=== PATIENT | female | born 1950 | race Caucasian/White ===

== ENCOUNTER 2016-07-17 13:00 | Day surgery (SDC) | payer MEDICARE, OTHER ==
[~2016-07-17 13:00] MED LIST: LACTATED RINGERS 1,000 ML IV SCH; LIDOCAINE 1% 20 ML VIAL (10MG/ML) FOR IV START INTRADERMA PRN
[2016-07-17 13:44] VITALS: RESP 16; TEMP 98.2
[2016-07-17] MEDS ORDERED: MIDAZOLAM 2 MG/2 ML VIAL IV ONE (14:04)
[2016-07-17] MEDS ORDERED: LABETALOL 5 MG/ML VIAL MDV ONE (15:43)
[2016-07-17] MEDS ORDERED: LIDOCAINE 1% INJ 10MG/ML (20 ML MDV) ONE (15:43)
[2016-07-17] MEDS ORDERED: PROPOFOL 10 MG/ML 20 ML VIAL IV ONE (15:43)
--- NOTE | 2016-07-17 16:09 | P.PCN ---
Date of Procedure: 07/17/16 Procedure(s) Performed: Procedure: Total colonoscopy. Preoperative diagnosis: Screening for neoplasia. Postoperative diagnosis: Sigmoid diverticulosis with no evidence of acute diverticulitis, strictures, polyps or cancer. Preparation: HalfLytely prep. Sedation: Was provided by anesthesia. Brief clinical history: The patient is a 65-year-old female who is scheduled for this evaluation for screening for neoplasia. Her last colonoscopy was more than 10 years ago. She has no abdominal complaints, bleeding or anemia. Procedure: With the patient on her left lateral decubitus position and after informed consent and adequate sedation, the perianal area was inspected and it did not show any fissures or fistulas. There were no masses felt on digital rectal examination. The Olympus CFQ 160L video colonoscope was then inserted in the rectum in the usual fashion and advanced to the cecum. There were several diverticular orifices seen scattered in the sigmoid but there was no evidence of acute diverticulitis or strictures. No polyps or tumors were seen or any other pathology. The patient tolerated the procedure well. Plan: The patient was reassured. Discussed dietary measures. She will follow- up with you as planned and I recommended repeat exam in 10 years.
[2016-07-17 16:23] VITALS: BP 164/84; PULSE 67
== END 2016-07-17 16:48 | disposition home or self-care (01) ==
LOC: ORWHC2ENDO 13:00
DX: Z12.11 Encounter for screening for malignant neoplasm of colon (principal); K57.30 Diverticulosis of large intestine without perforation or abscess without bleeding; I10 Essential (primary) hypertension; Z79.82 Long term (current) use of aspirin; Z79.899 Other long term (current) drug therapy; Z88.2 Allergy status to sulfonamides
CPT/HCPCS: J2250; J2001; J2704; G0121; 45378

== ENCOUNTER → 2016-07-25 | Outpatient (CLI) | payer MEDICARE, OTHER ==
--- NOTE | 2016-07-28 13:19 | MM ---
Reason for exam: screening (asymptomatic). Last mammogram was performed 1 year and 10 months ago. History: Patient is postmenopausal. Benign stereotactic core biopsy of the right breast, September 09, 1997. Benign core biopsy of the right breast. Physical Findings: A clinical breast exam by your physician is recommended on an annual basis and results should be correlated with mammographic findings. MG Screening Mammo w CAD Bilateral CC and MLO view(s) were taken. Prior study comparison: September 16, 2014, bilateral MG screening mammo w CAD. December 23, 2012, bilateral digital screening mammo w/CAD. August 01, 2010, bilateral digital screening mammo w/CAD. There are scattered fibroglandular densities. Previous mammotome biopsy within the right breast. No significant changes when compared with prior studies. ASSESSMENT: Negative, BI-RAD 1 RECOMMENDATION: Routine screening mammogram of both breasts in 1 year.
== END | disposition home or self-care (01) ==
LOC: RADMAMWWP 13:34
PROVIDERS: ATTEND Internal Medicine
DX: Z12.31 Encounter for screening mammogram for malignant neoplasm of breast (principal)

== ENCOUNTER → 2017-09-20 | Outpatient (CLI) | payer MEDICARE, OTHER ==
--- NOTE | 2017-09-24 10:05 | MM ---
Reason for exam: screening (asymptomatic). Last mammogram was performed 1 year and 2 months ago. History: Patient is postmenopausal. Benign stereotactic core biopsy of the right breast, September 09, 1997. Benign core biopsy of the right breast. Physical Findings: A clinical breast exam by your physician is recommended on an annual basis and results should be correlated with mammographic findings. MG 3D Screening Mammo W/Cad Bilateral CC and MLO view(s) were taken. Prior study comparison: July 25, 2016, bilateral MG screening mammo w CAD. September 16, 2014, bilateral MG screening mammo w CAD. There are scattered fibroglandular densities. No significant changes when compared with prior studies. ASSESSMENT: Benign, BI-RAD 2 RECOMMENDATION: Routine screening mammogram of both breasts in 1 year.
== END | disposition home or self-care (01) ==
LOC: RADMAMWWP 13:24
PROVIDERS: ATTEND Internal Medicine
DX: Z12.31 Encounter for screening mammogram for malignant neoplasm of breast (principal); Z80.3 Family history of malignant neoplasm of breast
CPT/HCPCS: 77063; 77067

== ENCOUNTER → 2019-06-05 | Outpatient (CLI) | payer MEDICARE, OTHER ==
--- NOTE | 2019-06-06 08:31 | MM ---
Reason for exam: screening (asymptomatic). Last mammogram was performed 1 year and 8 months ago. History: Patient is postmenopausal. Benign stereotactic core biopsy of the right breast, September 09, 1997. Benign core biopsy of the right breast. Physical Findings: A clinical breast exam by your physician is recommended on an annual basis and results should be correlated with mammographic findings. MG 3D Screening Mammo W/Cad Bilateral CC, MLO, and XCCL view(s) were taken. Prior study comparison: September 20, 2017, bilateral MG 3d screening mammo w/cad. July 25, 2016, bilateral MG screening mammo w CAD. The breast tissue is heterogeneously dense. This may lower the sensitivity of mammography. There is minimal growth of the 7mm right upper outer quadrant retroareolar mass. Ultrasound will be performed. No suspicious abnormality in the left breast. Right biopsy marker noted. ASSESSMENT: Incomplete: need additional imaging evaluation, BI-RAD 0 RECOMMENDATION: Ultrasound of the right breast. (upper outer quadrant) [facility] will attempt to contact patient to return for ultrasound.
== END | disposition home or self-care (01) ==
LOC: RADMAMWWP 13:56
PROVIDERS: ATTEND Internal Medicine
DX: Z12.31 Encounter for screening mammogram for malignant neoplasm of breast (principal)
CPT/HCPCS: 77063; 77067

== ENCOUNTER → 2019-06-17 | Outpatient (CLI) | payer MEDICARE, OTHER ==
--- NOTE | 2019-06-18 07:10 | USB ---
Reason for exam: additional evaluation requested from abnormal screening. History: Patient is postmenopausal. Benign stereotactic core biopsy of the right breast, September 09, 1997. Benign core biopsy of the right breast. Physical Findings: Nurse did not find any significant physical abnormalities on exam. US Breast Workup Limited RT Technologist: Kinsey Cisneros Right limited breast ultrasound including focal area of concern, retroareolar and axilla demonstrates a 0.7 x 0.5 x 0.4cm oval, cystic lesion at 11 o'clock, likely corresponds to the mammographic finding. 6 month follow up mammogram recommended. These results were verbally communicated with the patient and result sheet given to the patient on 06/17/19. ASSESSMENT: Probably benign, BI-RAD 3 RECOMMENDATION: Follow-up diagnostic mammogram of the right breast in 6 months.
== END | disposition home or self-care (01) ==
LOC: RADUSWWP 10:13
PROVIDERS: ATTEND Internal Medicine
DX: R92.8 Other abnormal and inconclusive findings on diagnostic imaging of breast (principal)

== ENCOUNTER → 2020-03-15 | Outpatient (CLI) | payer MEDICARE, OTHER ==
--- NOTE | 2020-03-15 14:45 | MM ---
Reason for exam: follow-up at short interval from prior study. Last mammogram was performed 9 months ago. History: Patient is postmenopausal. Benign stereotactic core biopsy of the right breast, September 09, 1997. Benign core biopsy of the right breast. Physical Findings: Nurse did not find any significant physical abnormalities on exam. MG 3D Diag Mammo W/Cad RT CC and MLO view(s) were taken of the right breast. Prior study comparison: June 05, 2019, bilateral MG 3d screening mammo w/cad. September 20, 2017, bilateral MG 3d screening mammo w/cad. The breast tissue is heterogeneously dense. This may lower the sensitivity of mammography. There are benign appearing round calcifications in the right breast. Previous mammotome biopsy in the right breast. There is chronic nodularity in the right breast. There is no discrete abnormality. These results were verbally communicated with the patient and result sheet given to the patient on 03/15/20. ASSESSMENT: Benign, BI-RAD 2 RECOMMENDATION: Return to routine screening mammogram schedule for both breasts. Back on schedule for May 2020.
== END | disposition home or self-care (01) ==
LOC: RADMAMWWP 14:02
PROVIDERS: ATTEND Internal Medicine
DX: R92.8 Other abnormal and inconclusive findings on diagnostic imaging of breast (principal)
CPT/HCPCS: 77065; G0279; 77061

== ENCOUNTER → 2020-07-16 | Outpatient (CLI) | payer MEDICARE, OTHER ==
--- NOTE | 2020-07-19 11:38 | MM ---
Reason for exam: screening (asymptomatic). Last mammogram was performed 4 months ago. History: Patient is postmenopausal. Benign stereotactic core biopsy of the right breast, September 09, 1997. Benign core biopsy of the right breast. Physical Findings: A clinical breast exam by your physician is recommended on an annual basis and results should be correlated with mammographic findings. MG 3D Screening Mammo W/Cad Bilateral CC and MLO view(s) were taken. Prior study comparison: March 15, 2020, right breast MG 3d diag mammo w/cad RT. June 05, 2019, bilateral MG 3d screening mammo w/cad. There are scattered fibroglandular densities. There are benign appearing round calcifications bilaterally. Previous mammotome biopsy in the right breast. There is chronic nodularity bilaterally. There is no discrete abnormality. ASSESSMENT: Benign, BI-RAD 2 RECOMMENDATION: Routine screening mammogram of both breasts in 1 year.
== END | disposition home or self-care (01) ==
LOC: RADMAMWWP 14:57
PROVIDERS: ATTEND Internal Medicine
DX: Z12.31 Encounter for screening mammogram for malignant neoplasm of breast (principal); Z78.0 Asymptomatic menopausal state
CPT/HCPCS: 77063; 77067

== ENCOUNTER 2020-07-31 14:56 | Inpatient (IN) | payer MEDICARE, OTHER ==
[2020-07-31] MEDS ORDERED: SODIUM CHLORIDE 0.9% 500 ML 500 ML IV STA (15:17)
--- NOTE | 2020-07-31 15:17 | ED ---
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 Patient is brought to the ER today by ambulance for evaluation of vertigo, nausea, vomiting and possible syncope. History is provided by the patient and her at bedside who was not with the patient when the episode occurred. He was told by his daughter that Olinda and her were driving in the car did been out running errands all day. Olinda began feeling very dizzy and got nauseated. She had some vomiting. EMS was called at that time and evaluated the patient but she felt m uch better and was signed off without coming to the hospital. She then had a recurrent episode of symptoms and again EMS was called this time bringing her to the hospital. Patient denies any headache or vision change. She reports she feels dizzy when she turns her head but feels fine when she is sitting resting. She gets nauseated like she is motion sick. She has never experiences in the past though her daughter is treated for vertigo. Patient has no significant medical history despite traveling in [place] she has been in [place] for the past 14 months, she's never been treated for malaria or any other exotic diseases. - Related Data Home Medications Medication Instructions Recorded Confirmed Aspirin [Adult Low Dose Aspirin EC] 81 mg PO DAILY 07/14/16 07/31/20 carvediloL [Coreg] 6.25 mg PO BID 07/14/16 07/31/20 Desloratadine 5 mg PO DAILY 07/31/20 07/31/20 Ergocalciferol [Vitamin D2 (1250 1,250 mcg PO WE 07/31/20 07/31/20 Mcg = 94645 Iu)] Fexofenadine HCl [Kamille Allergy] 180 mg PO DAILY 07/31/20 07/31/20 Ketotifen 0.025% Ophth Soln 1 drop BOTH EYES BID PRN 07/31/20 07/31/20 [Zaditor] Losartan/Hydrochlorothiazide 1 tab PO DAILY 07/31/20 07/31/20 [Losartan-Hctz 100-25 mg Tab] Montelukast [Singulair] 10 mg PO HS 07/31/20 07/31/20 Pravastatin Sodium [Pravachol] 20 mg PO DAILY 07/31/20 07/31/20 Tobra-Dexamet 0.3-0.1% Eye Sharla 1 drops BOTH EYES BID 07/31/20 07/31/20 [Tobradex Ophth Susp] cycloSPORINE 0.05% OPHTH SOLN 1 drop BOTH EYES Q12H 07/31/20 07/31/20 [Restasis] Allergies Allergy/AdvReac Type Severity Reaction Status Date / Time Sulfa (Sulfonamide Allergy Unknown Rash/Hives Verified 07/31/20 16:45 Antibiotics) Review of Systems ROS Statement: Those systems with pertinent positive or pertinent negative responses have been documented in the HPI. ROS Other: All systems not noted in ROS Statement are negative. Past Medical History Past Medical History: Hypertension Additional Past Medical History / Comment(s): PSORIASIS OF SCALP. History of Any Multi-Drug Resistant Organisms: None Reported Past Surgical History: Hysterectomy Past Anesthesia/Blood Transfusion Reactions: No Reported Reaction Past Psychological History: No Psychological Hx Reported Past Alcohol Use History: None Reported Past Drug Use History: None Reported - Past Family History Mother Family Medical History: No Reported History General Exam - General Exam Comments Initial Comments: Physical Exam GENERAL: Actively vomiting HENT: Normocephalic, Atraumatic. EYES: PERRL, EOMI Horizontal nystagmus upon turning the head PULMONARY: Unlabored respirations. No audible rales rhonchi or wheezing was noted. CARDIOVASCULAR: RRR ABDOMEN: Soft and nontender with hyperactive bowel sounds. SKIN: Skin is clear with no lesions or rashes and otherwise unremarkable. : Deferred NEUROLOGIC: Patient is alert and oriented x3. Moving all extremities spontaneously MUSCULOSKELETAL: Normal extremities with adequate strength and full range of motion. No lower extremity swelling or edema. No calf tenderness. PSYCHIATRIC: Normal psychiatric evaluation. Course Vital Signs 07/31/20 07/31/20 07/31/20 14:58 17:56 19:46 Temperature 97.4 F L Pulse Rate 67 64 105 H Respiratory 18 18 18 Rate Blood Pressure 195/94 194/96 176/81 O2 Sat by Pulse 93 L 98 100 Oximetry EKG Findings - EKG Comments: EKG Findings:: EKG was obtained due to complaint of syncope, EKG was obtained at 1522, rate is 53 rhythm is sinus bradycardia there is normal intervals, [place] 182, QRS 84, QTC 463 there are no acute ST elevations or depressions there is low voltage EKG. Medical Decision Making - Medical Decision Making Patient was seen and evaluated on initial evaluation the patient is actively vomiting states she feels dizzy when she turns her head but no dizziness or discrimination when sitting straight without moving her IV fluids and labs were ordered, antiemetics were given Patient had vomiting for approximately the first 45 minutes of her ER stay and then improved reported her dizziness does fine when she was sitting straight however after the episodes of vomiting she had hypertension and headache and head CT was ordered Labs are relatively unremarkable Considering the patient's intermittent chest pain for the past few days that her reported, vertigo and syncope today, hypertension and headache I do feel the patient warrants further evaluation and would benefit from admission to the hospital for evaluation by cardiology and possibly neurology. Patient care discussed with Dr. Lion, patients PCP, who accepts admission Patient resting comfortably upon admission at bedside - Lab Data Result diagrams: 07/31/20 15:43 07/31/20 15:47 Lab Results 07/31/20 07/31/20 07/31/20 Range/Units 15:43 15:43 15:43 WBC 8.5 (3.8-10.6) k/uL RBC 4.37 (3.80-5.40) m/uL Hgb 13.2 (11.4-16.0) gm/dL Hct 38.7 (34.0-46.0) % MCV 88.6 (80.0-100.0) fL MCH 30.1 (25.0-35.0) pg MCHC 34.0 (31.0-37.0) g/dL RDW 12.7 (11.5-15.5) % Plt Count 157 (150-450) k/uL MPV 8.2 Neutrophils % 78 % Lymphocytes % 12 % Monocytes % 6 % Eosinophils % 2 % Basophils % 1 % Neutrophils # 6.6 (1.3-7.7) k/uL Lymphocytes # 1.1 (1.0-4.8) k/uL Monocytes # 0.5 (0-1.0) k/uL Eosinophils # 0.2 (0-0.7) k/uL Basophils # 0.1 (0-0.2) k/uL PT 10.0 (9.0-12.0) sec INR 0.9 (<1.2) APTT 21.1 L (22.0-30.0) sec D-Dimer 0.33 (<0.60) mg/L FEU Sodium (137-145) mmol/L Potassium (3.5-5.1) mmol/L Chloride (98-107) mmol/L Carbon Dioxide (22-30) mmol/L Anion Gap mmol/L BUN (7-17) mg/dL Creatinine (0.52-1.04) mg/dL Est GFR (CKD-EPI)AfAm (>60 ml/min/1.73 sqM) Est GFR (CKD-EPI)NonAf (>60 ml/min/1.73 sqM) Glucose (74-99) mg/dL Calcium (8.4-10.2) mg/dL Magnesium (1.6-2.3) mg/dL Total Bilirubin (0.2-1.3) mg/dL AST (14-36) U/L ALT (4-34) U/L Alkaline Phosphatase (38-126) U/L Troponin I (0.000-0.034) ng/mL Total Protein (6.3-8.2) g/dL Albumin (3.5-5.0) g/dL Urine Color Yellow Urine Appearance Clear (Clear) Urine pH 7.5 (5.0-8.0) Ur Specific E[place] 1.013 (1.001-1.035) Urine Protein Negative (Negative) Urine Glucose (UA) Negative (Negative) Urine Ketones 1+ H (Negative) Urine Blood Negative (Negative) Urine Nitrite Negative (Negative) Urine Bilirubin Negative (Negative) Urine Urobilinogen <2.0 (<2.0) mg/dL Ur Leukocyte Esterase Negative (Negative) 07/31/20 07/31/20 Range/Units 15:43 15:47 WBC (3.8-10.6) k/uL RBC (3.80-5.40) m/uL Hgb (11.4-16.0) gm/dL Hct (34.0-46.0) % MCV (80.0-100.0) fL MCH (25.0-35.0) pg MCHC (31.0-37.0) g/dL RDW (11.5-15.5) % Plt Count (150-450) k/uL MPV Neutrophils % % Lymphocytes % % Monocytes % % Eosinophils % % Basophils % % Neutrophils # (1.3-7.7) k/uL Lymphocytes # (1.0-4.8) k/uL Monocytes # (0-1.0) k/uL Eosinophils # (0-0.7) k/uL Basophils # (0-0.2) k/uL PT (9.0-12.0) sec INR (<1.2) APTT (22.0-30.0) sec D-Dimer (<0.60) mg/L FEU Sodium 139 (137-145) mmol/L Potassium 3.4 L (3.5-5.1) mmol/L Chloride 103 (98-107) mmol/L Carbon Dioxide 28 (22-30) mmol/L Anion Gap 8 mmol/L BUN 18 H (7-17) mg/dL Creatinine 0.55 (0.52-1.04) mg/dL Est GFR (CKD-EPI)AfAm >90 (>60 ml/min/1.73 sqM) Est GFR (CKD-EPI)NonAf >90 (>60 ml/min/1.73 sqM) Glucose 124 H (74-99) mg/dL Calcium 9.6 (8.4-10.2) mg/dL Magnesium 2.0 (1.6-2.3) mg/dL Total Bilirubin 0.6 (0.2-1.3) mg/dL AST 47 H (14-36) U/L ALT 46 H (4-34) U/L Alkaline Phosphatase 120 (38-126) U/L Troponin I <0.012 (0.000-0.034) ng/mL Total Protein 7.4 (6.3-8.2) g/dL Albumin 4.4 (3.5-5.0) g/dL Urine Color Urine Appearance (Clear) Urine pH (5.0-8.0) Ur Specific E[place] (1.001-1.035) Urine Protein (Negative) Urine Glucose (UA) (Negative) Urine Ketones (Negative) Urine Blood (Negative) Urine Nitrite (Negative) Urine Bilirubin (Negative) Urine Urobilinogen (<2.0) mg/dL Ur Leukocyte Esterase (Negative) Disposition Clinical Impression: Syncope, Vertigo, Hypertension Disposition: ADMITTED IP TO THIS HOSP Condition: Stable
[2020-07-31 15:50] LABS: Basophils # (A) 0.1 k/uL (0-0.2); Basophils % (A) 1 %; Eosinophils # (A) 0.2 k/uL (0-0.7); Eosinophils % (A) 2 %; HCT 38.7 % (34.0-46.0); HGB 13.2 gm/dL (11.4-16.0); Lymphocytes # (A) 1.1 k/uL (1.0-4.8); Lymphocytes % (A) 12 %; MCH 30.1 pg (25.0-35.0); MCV 88.6 fL (80.0-100.0); Mean Platelet Volume 8.2; Monocytes # (A) 0.5 k/uL (0-1.0); Monocytes % (A) 6 %; Neutrophils # (A) 6.6 k/uL (1.3-7.7); Neutrophils % (A) 78 %; Platelet Count 157 k/uL (150-450); RBC 4.37 m/uL (3.80-5.40); RDW 12.7 % (11.5-15.5); WBC 8.5 k/uL (3.8-10.6)
[2020-07-31] MEDS ORDERED: METOCLOPRAMIDE 5 MG/ML 2 ML VIAL IVP STA (15:51)
[2020-07-31 16:00] LABS: ALT 46 U/L (4-34); AST 47 U/L (14-36); African American GFR (CKD) >90 (>60 ml/min/1.73 sqM); Albumin 4.4 g/dL (3.5-5.0); Alkaline Phosphatase 120 U/L (38-126); Anion Gap 8 mmol/L; Blood Urea Nitrogen 18 mg/dL (7-17); Calcium 9.6 mg/dL (8.4-10.2); Carbon Dioxide 28 mmol/L (22-30); Chloride 103 mmol/L (98-107); Glucose 124 mg/dL (74-99); Non-African American GFR(CKD) >90 (>60 ml/min/1.73 sqM); Potassium 3.4 mmol/L (3.5-5.1); Sodium 139 mmol/L (137-145); Total Bilirubin 0.6 mg/dL (0.2-1.3); Total Protein 7.4 g/dL (6.3-8.2)
[2020-07-31 16:10] LABS: INR 0.9 (<1.2); Partial Thromboplastin Time 21.1 sec (22.0-30.0)
--- NOTE | 2020-07-31 16:25 | XR ---
EXAMINATION TYPE: XR chest 1V portable DATE OF EXAM: 07/31/2020 COMPARISON: NONE HISTORY: Syncope TECHNIQUE: Single view FINDINGS: There is no heart failure nor confluent pneumonic infiltrate. Costophrenic angles are clear . There are no hilar masses. Bony thorax is intact. IMPRESSION: No active cardiopulmonary disease.
[2020-07-31 17:02] LABS: Appearance,Urine Clear (Clear); Bilirubin,Urine Negative (Negative); Blood,Urine Negative (Negative); Color,Urine Yellow; Glucose,Urine (UA) Negative (Negative); Ketones,Urine 1+ (Negative); Leukocyte Esterase,Urine Negative (Negative); Nitrite,Urine Negative (Negative); PH, Urine 7.5 (5.0-8.0); Protein,Urine Negative (Negative); Specific Gravity,Urine 1.013 (1.001-1.035); Urobilinogen,Urine <2.0 mg/dL (<2.0)
[2020-07-31] MEDS ORDERED: MECLIZINE 12.5 MG TAB PO STA (17:52)
--- NOTE | 2020-07-31 18:39 | US ---
EXAMINATION TYPE: US gallbladder DATE OF EXAM: 07/31/2020 COMPARISON: US 2011 CLINICAL HISTORY: abdominal pain, transaminitis. Acid reflux, N/V EXAM MEASUREMENTS: Liver Length: 14.9 cm Gallbladder Wall: 0.2 cm CBD: 0.4 cm Right Kidney: 10.3 x 4.9 x 4.8 cm Pancreas: visualized portions wnl, limited by overlying midline bowel gas Liver: wnl Gallbladder: wnl Evidence for sonographic Boyd's sign: no CBD: visualized portions wnl, limited by overlying bowel gas Right Kidney: wnl IMPRESSION: Negative exam. No gallstones or dilated ducts.
--- NOTE | 2020-07-31 19:05 | CT ---
EXAMINATION TYPE: CT brain wo con DATE OF EXAM: 07/31/2020 COMPARISON: None HISTORY: headache, vertigo CT DLP: 1114.4 mGycm Automated exposure control for dose reduction was used. Images were obtained of the brain without contrast. Ventricles and sulci appear normal. There is no mass effect nor midline shift. There is no sign of in tracranial hemorrhage. Calvarium is intact. The skull base is intact. There is normal aeration of the mastoid sinuses. IMPRESSION: Negative CT scan of the brain.
[2020-07-31] MEDS ORDERED: NALOXONE 0.4 MG/ML 1 ML VIAL IV PRN (19:21)
[2020-07-31] MEDS ORDERED: ONDANSETRON 4 MG/2 ML VIAL IVP PRN (19:21)
[2020-07-31] MEDS ORDERED: MECLIZINE 25 MG TAB PO PRN (19:25)
[2020-07-31] MEDS: SODIUM CHLORIDE 0.9% 1,000 ML IV SCH (19:54)
[2020-08-01] MEDS ORDERED: Potassium Replacement Protocol 1 EACH MISC MISCELLANE PRN (00:51)
[2020-08-01] MEDS: POTASSIUM CHLORIDE ER 20 MEQ TAB.ER PO SCH ×2 (01:07→03:11)
[2020-08-01] MEDS: carvediloL 6.25 MG TAB PO SCH ×3 (01:07→17:20)
[2020-08-01] MEDS: cycloSPORINE 0.05% OPHTH 0.4 ML DROPERETTE BOTH EYES SCH ×2 (01:08→13:57)
[2020-08-01] MEDS: SODIUM CHLORIDE 0.9% 1,000 ML IV SCH (04:15)
[2020-08-01] MEDS: LOSARTAN-HCTZ 50-12.5 MG 1 EACH TAB PO SCH (07:39)
[2020-08-01] MEDS: ASPIRIN 81 MG PO SCH (07:39)
[2020-08-01] MEDS: LORATADINE 10 MG TAB PO SCH (07:40)
[2020-08-01] MEDS: PRAVASTATIN SODIUM 20 MG TAB PO SCH (07:40)
[2020-08-01] MEDS: TOBRA-DEXAMET 0.3-0.1% OPHTH DROPS 2.5 ML BTL BOTH EYES SCH ×2 (07:40→21:46)
--- NOTE | 2020-08-01 08:40 | P.CRDCN ---
History of Present Illness History of present illness: HISTORY OF PRESENTING ILLNESS This is a pleasant 69-year-old with past medical history significant for hypertension, hyperlipidemia, strong family history of coronary artery disease. 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 She states she had been feeling fairly well up until yesterday when she was walking around with her daughter and started feeling dizzy. She states she felt like the room was spinning around her, became nauseous, broke out in a sweat and felt like she was given a fall down. She denies any actual loss of consciousness. She states she felt better when she closes her eyes and rested for a few minutes. She then rested inside her daughter's house and waited for EMS and had a second episode. She denied any specific chest pain, pressure or shortness breath. She has not had anything similar in the past. 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 She states she had been feeling well up until last few weeks since she has been more active she notes feeling somewhat more short of breath. She is from family history with father dying of OK in his 40s, all her 6 siblings with open heart surgery. She has not had any recent echocardiogram or stress testing, no history of heart catheterization. EKG on presentation showed sinus bradycardia at 53 bpm. She is still feeling somewhat unsteady however no dizziness like yesterday. Troponin 1 was negative. Repeat pending. REVIEW OF SYSTEMS At the time of my exam: CONSTITUTIONAL: Denies fever or chills. CARDIOVASCULAR: Denies chest pain, +shortness of breath, no orthopnea, PND or palpitations. RESPIRATORY: Denies cough. GASTROINTESTINAL: Denies abdominal pain, diarrhea, constipation, nausea or vomiting. MUSCULOSKELETAL: Denies myalgias. NEUROLOGIC: Denies numbness, tingling or weakness. ENDOCRINE: Denies fatigue, weight change, polydipsia or polyurina. GENITOURINARY: Denies burning, hematuria or urgency with micturation. HEMATOLOGIC: Denies history of anemia or bleeding. PHYSICAL EXAMINATION Vital signs reviewed. CONSTITUTIONAL: No apparent distress. HEENT: Head is normocephalic. Pupils are equal, round. Sclerae anicteric. Mucous membranes of the mouth are moist. No JVD. No carotid bruit. CHEST EXAMINATION: Lungs are clear to auscultation. No chest wall tenderness is noted on palpation or with deep breathing. HEART EXAMINATION: Regular rate and rhythm. S1, S2 heard. No murmurs, gallops or rub. ABDOMEN: Soft, nontender. Positive bowel sounds. EXTREMITIES: 2+ peripheral pulses, no lower extremity edema and no calf tenderness. NEUROLOGIC EXAMINATION: Patient is awake, alert and oriented x3. ASSESSMENT 1. Dizziness, appears more related to vertigo with room spinning sensation improves with closing her eyes however also breaking out in a sweat becoming nauseous. Rule out cardiac source, hypo-perfusional. 2. Nausea, diaphoresis associated with her dizziness, rule out atypical angina with strong family history 3. Increased shortness breath over the last few weeks. May be deconditioning versus other 4. Essential hypertension 5. Hyperlipidemia 6. Strong family history of coronary artery disease 7. Asymptomatic sinus bradycardia PLAN Patient with symptoms which appear more vertiginous in nature. We will check a 2-D echo as well as Lexiscan stress test. Check repeat troponin. Continue telemetry. In Continue home medications. Past Medical History Past Medical History: Hypertension Additional Past Medical History / Comment(s): PSORIASIS OF SCALP. History of Any Multi-Drug Resistant Organisms: None Reported Past Surgical History: Hysterectomy Past Anesthesia/Blood Transfusion Reactions: No Reported Reaction Past Psychological History: No Psychological Hx Reported Past Alcohol Use History: None Reported Past Drug Use History: None Reported - Past Family History Mother Family Medical History: No Reported History Medications and Allergies Home Medications Medication Instructions Recorded Confirmed Type Aspirin [Adult Low Dose Aspirin EC] 81 mg PO DAILY 07/14/16 07/31/20 History carvediloL [Coreg] 6.25 mg PO BID 07/14/16 07/31/20 History Desloratadine 5 mg PO DAILY 07/31/20 07/31/20 History Ergocalciferol [Vitamin D2 (1250 1,250 mcg PO WE 07/31/20 07/31/20 History Mcg = 67248 Iu)] Fexofenadine HCl [Kamille Allergy] 180 mg PO DAILY 07/31/20 07/31/20 History Ketotifen 0.025% Ophth Soln 1 drop BOTH EYES BID PRN 07/31/20 07/31/20 History [Zaditor] Losartan/Hydrochlorothiazide 1 tab PO DAILY 07/31/20 07/31/20 History [Losartan-Hctz 100-25 mg Tab] Montelukast [Singulair] 10 mg PO HS 07/31/20 07/31/20 History Pravastatin Sodium [Pravachol] 20 mg PO DAILY 07/31/20 07/31/20 History Tobra-Dexamet 0.3-0.1% Eye Sharla 1 drops BOTH EYES BID 07/31/20 07/31/20 History [Tobradex Ophth Susp] cycloSPORINE 0.05% OPHTH SOLN 1 drop BOTH EYES Q12H 07/31/20 07/31/20 History [Restasis] Allergies Allergy/AdvReac Type Severity Reaction Status Date / Time Sulfa (Sulfonamide Allergy Unknown Rash/Hives Verified 07/31/20 16:45 Antibiotics) Physical Exam Vitals: Vital Signs Temp Pulse Pulse Resp BP BP Pulse Ox 08/01/20 07:00 98.0 F 70 16 175/77 92 L 08/01/20 01:58 15 08/01/20 01:11 98.1 F 74 15 166/81 97 07/31/20 22:00 16 07/31/20 20:48 98.5 F 67 16 176/77 97 07/31/20 19:46 105 H 18 176/81 100 07/31/20 17:56 64 18 194/96 98 07/31/20 14:58 97.4 F L 67 18 195/94 93 L Intake and Output 07/31/20 08/01/20 08/01/20 22:59 06:59 14:59 Output Total 300 Balance -300 Output: Urine 300 Other: # Voids 1 1 Weight 97.522 kg Results 07/31/20 15:43 07/31/20 15:47 Cardiac Enzymes 07/31/20 07/31/20 Range/Units 15:43 15:47 AST 47 H (14-36) U/L Troponin I <0.012 (0.000-0.034) ng/mL Coagulation 07/31/20 Range/Units 15:43 PT 10.0 (9.0-12.0) sec APTT 21.1 L (22.0-30.0) sec CBC 07/31/20 Range/Units 15:43 WBC 8.5 (3.8-10.6) k/uL RBC 4.37 (3.80-5.40) m/uL Hgb 13.2 (11.4-16.0) gm/dL Hct 38.7 (34.0-46.0) % Plt Count 157 (150-450) k/uL Comprehensive Metabolic Panel 07/31/20 Range/Units 15:47 Sodium 139 (137-145) mmol/L Potassium 3.4 L (3.5-5.1) mmol/L Chloride 103 (98-107) mmol/L Carbon Dioxide 28 (22-30) mmol/L BUN 18 H (7-17) mg/dL Creatinine 0.55 (0.52-1.04) mg/dL Glucose 124 H (74-99) mg/dL Calcium 9.6 (8.4-10.2) mg/dL AST 47 H (14-36) U/L ALT 46 H (4-34) U/L Alkaline Phosphatase 120 (38-126) U/L Total Protein 7.4 (6.3-8.2) g/dL Albumin 4.4 (3.5-5.0) g/dL Current Medications Generic Name Dose Route Start Last Admin Trade Name Freq PRN Reason Stop Dose Admin Aspirin 81 mg 08/01/20 09:00 08/01/20 07:39 Aspirin 81 Mg PO 81 mg DAILY GULSHAN Administration Carvedilol 6.25 mg 08/01/20 00:30 08/01/20 07:40 Carvedilol 6.25 Mg Tab PO 6.25 mg BID-W/MEALS GULSHAN Administration Cyclosporine 1 drops 08/01/20 01:00 08/01/20 01:08 Cyclosporine 0.05% Ophth 0.4 Ml Droperette BOTH EYES 1 drops Q12H GULSHAN Administration Ergocalciferol 1,250 mcg 08/04/20 09:00 Ergocalciferol 1,250 Mcg (50,000 Iu) Capsule PO WE GULSHAN HCTZ/Losartan Potassium 2 each 08/01/20 09:00 08/01/20 07:39 Losartan-Hctz 50-12.5 Mg 1 Each Tab PO 2 each DAILY GULSHAN Administration Sodium Chloride 1,000 mls @ 125 mls/hr 07/31/20 19:30 08/01/20 04:15 Saline 0.9% IV 125 mls/hr .Q8H GULSHAN Administration Ketotifen Fumarate 1 drops 08/01/20 00:29 Ketotifen 0.025% Ophth Drops 5 Ml Btl BOTH EYES BID PRN DRY EYES Loratadine 10 mg 08/01/20 09:00 08/01/20 07:40 Loratadine 10 Mg Tab PO 10 mg DAILY GULSHAN Administration Meclizine HCl 25 mg 07/31/20 19:25 Meclizine 25 Mg Tab PO Q6H PRN Vertigo Miscellaneous Information 1 each 08/01/20 00:51 Potassium Replacement Protocol 1 Each Misc MISCELLANE DAILY PRN Per Protocol Protocol Montelukast Sodium 10 mg 08/01/20 21:00 Montelukast 10 Mg Tab PO HS GULSHAN Naloxone HCl 0.2 mg 07/31/20 19:21 Naloxone 0.4 Mg/Ml 1 Ml Vial IV Q2M PRN Opioid Reversal Ondansetron HCl 4 mg 07/31/20 19:21 07/31/20 21:06 Ondansetron 4 Mg/2 Ml Vial IVP 4 mg Q8HR PRN Administration Nausea And Vomiting Pravastatin Sodium 20 mg 08/01/20 09:00 08/01/20 07:40 Pravastatin Sodium 20 Mg Tab PO 20 mg DAILY GULSHAN Administration Tobramycin/Dexamethasone 1 drops 08/01/20 09:00 08/01/20 07:40 Tobra-Dexamet 0.3-0.1% Ophth Drops 2.5 Ml Btl BOTH EYES 1 drops BID GULSHAN Administration Intake and Output 07/31/20 08/01/20 08/01/20 22:59 06:59 14:59 Output Total 300 Balance -300 Output: Urine 300 Other: # Voids 1 1 Weight 97.522 kg 07/31/20 15:43 07/31/20 15:47
[2020-08-01] MEDS ORDERED: DESLORATADINE 5 MG PO SCH (09:00)
[2020-08-01] MEDS ORDERED: IBUPROFEN 400 MG TAB PO PRN (10:12)
--- NOTE | 2020-08-01 10:29 | P.HPIM ---
History of Present Illness H&P Date: 08/01/20 Chief Complaint: Dizziness chest pain near syncopal episode This is a 69-year-old female patient who presents to the ER with dizziness, nausea, vomiting and near syncopal episode. Patient reports that she was out with her daughter when she became very dizzy and nauseated. Patient denies any loss of consciousness or associated neurological symptoms. Patient does have a medical history of hypertension. Head CT of the head negative. Chest x-ray completed showing no active cardiopulmonary disease. All bladder ultrasound completed showing negative exam gallstones or dilated ducts. EKG completed showing sinus bradycardia. COVID-19 negative. Troponin negative. AST and ALT slightly elevated. At that time cardiology and neurology services will be consulted. Patient received Antivert and IV fluid. Patient reports that she feels much improved. She currently resting comfortably in bed. At this time patient denies any chest pain or shortness of breath. Patient denies nausea vomiting or diarrhea. Patient denies any urinary burning or frequency Review of Systems please refer to HPI otherwise unremarkable Past Medical History Past Medical History: Hypertension Additional Past Medical History / Comment(s): PSORIASIS OF SCALP. History of Any Multi-Drug Resistant Organisms: None Reported Past Surgical History: Hysterectomy Past Anesthesia/Blood Transfusion Reactions: No Reported Reaction Past Psychological History: No Psychological Hx Reported Past Alcohol Use History: None Reported Past Drug Use History: None Reported - Past Family History Mother Family Medical History: No Reported History Medications and Allergies Home Medications Medication Instructions Recorded Confirmed Type Aspirin [Adult Low Dose Aspirin EC] 81 mg PO DAILY 07/14/16 07/31/20 History carvediloL [Coreg] 6.25 mg PO BID 07/14/16 07/31/20 History Desloratadine 5 mg PO DAILY 07/31/20 07/31/20 History Ergocalciferol [Vitamin D2 (1250 1,250 mcg PO WE 07/31/20 07/31/20 History Mcg = 80572 Iu)] Fexofenadine HCl [Kamille Allergy] 180 mg PO DAILY 07/31/20 07/31/20 History Ketotifen 0.025% Ophth Soln 1 drop BOTH EYES BID PRN 07/31/20 07/31/20 History [Zaditor] Losartan/Hydrochlorothiazide 1 tab PO DAILY 07/31/20 07/31/20 History [Losartan-Hctz 100-25 mg Tab] Montelukast [Singulair] 10 mg PO HS 07/31/20 07/31/20 History Pravastatin Sodium [Pravachol] 20 mg PO DAILY 07/31/20 07/31/20 History Tobra-Dexamet 0.3-0.1% Eye Sharla 1 drops BOTH EYES BID 07/31/20 07/31/20 History [Tobradex Ophth Susp] cycloSPORINE 0.05% OPHTH SOLN 1 drop BOTH EYES Q12H 07/31/20 07/31/20 History [Restasis] Allergies Allergy/AdvReac Type Severity Reaction Status Date / Time Sulfa (Sulfonamide Allergy Unknown Rash/Hives Verified 07/31/20 16:45 Antibiotics) Physical Exam Vitals: Vital Signs Temp Pulse Pulse Resp BP BP Pulse Ox 08/01/20 08:00 70 16 08/01/20 07:00 98.0 F 70 16 175/77 92 L 08/01/20 01:58 15 08/01/20 01:11 98.1 F 74 15 166/81 97 07/31/20 22:00 16 07/31/20 20:48 98.5 F 67 16 176/77 97 07/31/20 19:46 105 H 18 176/81 100 07/31/20 17:56 64 18 194/96 98 07/31/20 14:58 97.4 F L 67 18 195/94 93 L Intake and Output 07/31/20 08/01/20 08/01/20 22:59 06:59 14:59 Intake Total 118 Output Total 300 Balance -300 118 Intake: Oral 118 Output: Urine 300 Other: Voiding Method Toilet # Voids 1 1 1 Weight 97.522 kg Head normocephalic Neck supple Lungs clear to auscultation bilaterally no wheezing or crackles Heart regular rate and rhythm S1-S2, no rub or gallop Abdomen is soft nontender nondistended positive bowel sounds no hep atosplenomegaly Extremities no edema Neuro alert and orientated to 3 Results CBC & Chem 7: 07/31/20 15:43 07/31/20 15:47 Labs: Abnormal Lab Results - Last 24 Hours (Table) 07/31/20 07/31/20 07/31/20 Range/Units 15:43 15:43 15:47 APTT 21.1 L (22.0-30.0) sec Potassium 3.4 L (3.5-5.1) mmol/L BUN 18 H (7-17) mg/dL Glucose 124 H (74-99) mg/dL AST 47 H (14-36) U/L ALT 46 H (4-34) U/L Urine Ketones 1+ H (Negative) Thrombosis Risk Factor Assmnt - Choose All That Apply Any of the Below Risk Factors Present?: Yes Each Factor Represents 1 point: Obesity (BMI >25) Other Risk Factors: Yes Each Risk Factor Represents 2 Points: Age 61-74 years Other congenital or acquired thrombophilia - If yes, enter type in comment: No Thrombosis Risk Factor Assessment Total Risk Factor Score: 3 Thrombosis Risk Factor Assessment Level: Moderate Risk Assessment and Plan Assessment: 1. Dizziness with near syncopal episode. Cardiology services consulted. Plans for stress test tomorrow. 2-D echo ordered. Neurology services also consulted 2. History of essential hypertension 4. Hyperlipidemia 5. Slightly elevated liver enzymes. Repeat labs ordered DVT prophylaxis Lovenox. GI prophylaxis Pepcid Cardiology and neurology service is consulted Stress test ordered for 08/02/2020 2-D echo and carotid ultrasound ordered Time with Patient: Greater than 30
--- NOTE | 2020-08-01 11:31 | US ---
EXAMINATION TYPE: US carotid duplex BILAT DATE OF EXAM: 08/01/2020 COMPARISON: NONE CLINICAL HISTORY: dizziness, near syncopal. Vertigo EXAM MEASUREMENTS: RIGHT: Peak Systolic Velocity (PSV) cm/sec ----- Right CCA: 103 ----- Right ICA: 141 ----- Right ECA: 178 ICA/CCA ratio: 1.4 RIGHT: End Diastole cm/sec ----- Right CCA: 29.9 ----- Right ICA: 39.5 ----- Right ECA: 15.8 LEFT: Peak Systolic Velocity (PSV) cm/sec ----- Left CCA: 103 ----- Left ICA: 167 ----- Left ECA: 227 ICA/CCA ratio: 1.6 LEFT: End Diastole cm/sec ----- Left CCA: 30.0 ----- Left ICA: 54.7 ----- Left ECA: 26.8 VERTEBRALS (direction of flow): Right Vertebral: Antegrade Left Vertebral: Unable to visualize blood flow Rhythm: Normal Elevated velocities bilateral ECA's, mildly elevated velocities bilateral ICA's/ possible occluded left vertebral IMPRESSION: 1. Atherosclerotic changes with no significant hemodynamic stenosis of carotid arteries. 2. Nonvisualization left vertebral artery correlate for vertebral artery occlusion Criteria for Assigning % of Stenosis / Diameter reduction (Estimation based on the indirect measurements of the internal carotid artery velocities (ICA PSV). 1. Normal (no stenosis)=ICA PSV < 125 cm/s: ratio < 2.0: ICA EDV<40 cm/s. 2. Less than 50% stenosis=ICA PSV < 125 cm/s: ratio < 2.0: ICA EDV<40 cm/s. 3. 50 to 69% stenosis=ICA PSV of 125 to 230 cm/s: ration 2.0 ? 4.0: ICA EDV 40-100 cm/s. 4. Greater than 70% stenosis to near occlusion= ICA PSV > 230 cm/s: ratio > 4.0: ICA EDV > 100 cm/s. 5. Near occlusion= ICA PSV velocities may be low or undetectable: variable ratio and ICA EDV. 6. Total occlusion=unable to detect flow.
--- NOTE | 2020-08-01 12:39 | P.CNNES ---
History of Present Illness Consult date: 08/01/20 Requesting physician: Urvashi Lion Reason for Consult: dizziness History of Present Illness: This is a 69-year-old woman with medical history of pretension that presented to the emergency department on 07/31/2020 for dizziness nausea and vomiting. The patient was accompanied with her was at bedside and she stated that yesterday she was out with her daughter and she all of a sudden started having dizzy and had nausea vomiting episodes. She said this onset of symptoms was around 1:30 PM on 07/31/2020. She felt the room is spinning. Denies ringing in the ears or hearing loss. Denies of any fever, any head trauma, any focal weakness, any numbness or tingling. She said that her dizziness was worse with movement and better with the resting. Denies of any visual disturbance. Denies of any history of stroke or TIA. There is a question whether the patient passed out or not but she stated that she did not but per the patient's possibly the that was witnessed by the son but no jerk in of any of the extremities, urinary or bowel incontinence, any tongue soreness. Patient stated that she was aware during the episode and she does not feel like she did pass out. The patient does not have any history of seizure. Since being in the hospital she stated that her dizziness has been improving. Some of the patient's home medication is aspirin 81 mg, pravastatin 20 mg, she is on blood pressure medication. Patient has early family history of coronary artery disease. Some of the workup in the hospital consisted of: Initial vital signs: Blood pressure of 95/94, heart rate of 67, temperature of 97.4 Fahrenheit oral, respiratory of 18 and pulse ox of 93% liters at room air. CT of the head is reported as negative CT scan of the brain. EKG is reported as sinus bradycardia. Nonspecific ST abnormality. Abnormal EKG. Carotid duplex is reported as atherosclerotic changes with no significant h emodynamic stenosis of the carotid arteries. Non-visualization left vertebral artery correlate for vertebral artery occlusion. White blood cells 8.5 which is normal. Potassium is 3.4 which is mildly low. AST of 47 and ALT 46 which is mildly elevated. Otherwise the rest of the basic Mr. panel is normal. Cesar virus PCR was not detected. Review of Systems Review of system: The 12 point system was reviewed and apparent positive and negative per HPI. Past Medical History Past Medical History: Hypertension Additional Past Medical History / Comment(s): PSORIASIS OF SCALP. History of Any Multi-Drug Resistant Organisms: None Reported Past Surgical History: Hysterectomy Past Anesthesia/Blood Transfusion Reactions: No Reported Reaction Past Psychological History: No Psychological Hx Reported Past Alcohol Use History: None Reported Past Drug Use History: None Reported - Past Family History Mother Family Medical History: No Reported History Medications and Allergies Home Medications Medication Instructions Recorded Confirmed Type Aspirin [Adult Low Dose Aspirin EC] 81 mg PO DAILY 07/14/16 07/31/20 History carvediloL [Coreg] 6.25 mg PO BID 07/14/16 07/31/20 History Desloratadine 5 mg PO DAILY 07/31/20 07/31/20 History Ergocalciferol [Vitamin D2 (1250 1,250 mcg PO WE 07/31/20 07/31/20 History Mcg = 65867 Iu)] Fexofenadine HCl [Kamille Allergy] 180 mg PO DAILY 07/31/20 07/31/20 History Ketotifen 0.025% Ophth Soln 1 drop BOTH EYES BID PRN 07/31/20 07/31/20 History [Zaditor] Losartan/Hydrochlorothiazide 1 tab PO DAILY 07/31/20 07/31/20 History [Losartan-Hctz 100-25 mg Tab] Montelukast [Singulair] 10 mg PO HS 07/31/20 07/31/20 History Pravastatin Sodium [Pravachol] 20 mg PO DAILY 07/31/20 07/31/20 History Tobra-Dexamet 0.3-0.1% Eye Sharla 1 drops BOTH EYES BID 07/31/20 07/31/20 History [Tobradex Ophth Susp] cycloSPORINE 0.05% OPHTH SOLN 1 drop BOTH EYES Q12H 07/31/20 07/31/20 History [Restasis] Allergies Allergy/AdvReac Type Severity Reaction Status Date / Time Sulfa (Sulfonamide Allergy Unknown Rash/Hives Verified 07/31/20 16:45 Antibiotics) Physical Examination - Vital Signs Vital Signs: Vital Signs Temp Pulse Pulse Resp BP BP Pulse Ox 08/01/20 08:00 70 16 08/01/20 07:00 98.0 F 70 16 175/77 92 L 08/01/20 01:58 15 08/01/20 01:11 98.1 F 74 15 166/81 97 07/31/20 22:00 16 07/31/20 20:48 98.5 F 67 16 176/77 97 07/31/20 19:46 105 H 18 176/81 100 07/31/20 17:56 64 18 194/96 98 07/31/20 14:58 97.4 F L 67 18 195/94 93 L Intake and Output 07/31/20 08/01/20 08/01/20 22:59 06:59 14:59 Intake Total 118 Output Total 300 Balance -300 118 Intake: Oral 118 Output: Urine 300 Other: Voiding Method Toilet # Voids 1 1 1 Weight 97.522 kg GENERAL: The patient is lying in bed and is not in acute distress. CHEST: The heart rate is regular rate rhythm. No murmurs to auscultation. No carotid bruit bilaterally. LUNG: Clear to auscultation bilaterally no wheezing noted throughout. Not labored breathing. ABDOMEN/GI: Bowel sounds present in all 4 quadrants. No tenderness to palpation throughout. NEUROLOGICAL: Higher mental function: The patient is awake, alert, oriented to self, place and time. Patient is following commands. No aphasia and no neglect. Cranial nerves: The pupils are round, equal and reactive to light and accommodation. Visual ramires are full to confrontation throughout. Extraocular movement is rotatory nystagmus looking to the right. Facial sensation is normal to touch throughout. The facial strength is normal throughout. Hearing is normal bilaterally to hand rub. Tongue is midline and moved [id number] without any difficulty. No dysarthria is noted. Shoulder shrug is normal bilaterally. Motor: Gait: Was walking unassisant but with turn slightly unsteady and not swaying toward one side or other. The strength is 5 over 5 throughout. Normal tone and bulk. Cerebellum: Normal finger to nose heel to chin bilaterally. Sensation: Sensation is normal to touch throughout. Reflexes (right/left): 2+ throughout. Plantars are downgoing bilaterally. Results - Laboratory Findings CBC and BMP: 07/31/20 15:43 07/31/20 15:47 Abnormal Lab Findings: Abnormal Labs 07/31/20 07/31/20 07/31/20 15:43 15:43 15:47 APTT 21.1 L Potassium 3.4 L BUN 18 H Glucose 124 H AST 47 H ALT 46 H Urine Ketones 1+ H Assessment and Plan Assessment: Vertigo, nausea and vomitting (improving today)---seems peripheral Hypertension Early family history of CAD Plan: CT of the head is reported as negative CT scan of the brain. EKG is reported as sinus bradycardia. Nonspecific ST abnormality. Abnormal EKG. Carotid duplex is reported as atherosclerotic changes with no significant hemodynamic stenosis of the carotid arteries. Non-visualization left vertebral artery correlate for vertebral artery occlusion. I ordered CT angiography of the head and neck stat. If the patient symptoms don't resolve by tomorrow then recommend MRI of the brain. Patient was continued on her her dose of aspirin 81 and pravastatin 20 mg daily by the primary team 2-D echo as well as a co-stress test is ordered by the cardiology team. Consulted PT and OT for gait mobility She is on meclizine 25 mg every 6 hours when necessary and I changed it to schedule 1 tab tid. Possible consider vestibular rehab therapy and ENT consultation as outpatient if symptoms do not improve. Will defer the rest of medical management to the primary team. The plan is discussed with the patient's nurse. Thank you for the consultation Dr. Baird will take over neurology service tomorrow AM (08/02/2020). Chidi Bhardwaj MD Neuro-Hospitalist Time with Patient: Greater than 30
--- NOTE | 2020-08-01 14:06 | CT ---
EXAMINATION TYPE: CT angio head neck DATE OF EXAM: 08/01/2020 HISTORY: dizziness COMPARISON: None CT DLP: 378 mGycm. Automated Exposure Control for Dose Reduction was Utilized. TECHNIQUE: CTA scan of the neck is performed with IV Contrast, patient injected with 65 mL of Isovue 370, axial images are obtained, coronal and sagittal reformatted images are reviewed. Three-D recons tructed images are created on an independent workstation and reviewed. FINDINGS: Origins of the great vessels appear to be patent. Subclavian arteries as visualized patent. Right vertebral artery appears to be dominant. Lung apices clear. There is ectasia of the right common carotid artery. Mild atherosclerotic changes of the carotid bifu rcations. No significant stenosis. Mild atherosclerotic change involving the mid left subclavian jose guadalupe ry Vertebral basilar and carotid systems are patent. No sizable aneurysm or vascular malformation. There is a hypoplastic A1 segment left anterior cerebral artery. Hypertrophic and degenerative changes spine with severe multilevel degenerative disc disease. IMPRESSION: 1. No sizable aneurysm or vascular malformation. 2. Mild bilateral atherosclerotic plaque of the carotid bifurcation
[2020-08-01] MEDS ORDERED: FUROSEMIDE 10 MG/ML 2 ML VIAL IV ONE (15:44)
[2020-08-01] MEDS: MECLIZINE 25 MG TAB PO SCH ×2 (16:13→21:45)
[2020-08-01] MEDS: MONTELUKAST 10 MG TAB PO SCH (21:45)
[2020-08-02] MEDS: cycloSPORINE 0.05% OPHTH 0.4 ML DROPERETTE BOTH EYES SCH ×2 (01:14→12:29)
[2020-08-02] MEDS ORDERED: CAFFEINE CITRATE 60 MG/3 ML VIAL IV PRN (06:00)
[2020-08-02] MEDS ORDERED: AMINOPHYLLINE 500 MG/20 ML VIAL IV PRN (06:00)
[2020-08-02] MEDS ORDERED: REGADENOSON 0.4 MG/5 ML SYRINGE IV PRN (07:00)
[2020-08-02] MEDS: carvediloL 6.25 MG TAB PO SCH ×3 (07:03→16:38)
[2020-08-02] MEDS: LORATADINE 10 MG TAB PO SCH (08:08)
[2020-08-02] MEDS: FAMOTIDINE 20 MG TAB PO SCH (08:08)
[2020-08-02] MEDS: ENOXAPARIN 40 MG/0.4 ML SYRINGE SQ SCH (08:08)
[2020-08-02] MEDS: MECLIZINE 25 MG TAB PO SCH ×3 (08:08→21:33)
[2020-08-02] MEDS: ASPIRIN 81 MG PO SCH (08:08)
[2020-08-02] MEDS: PRAVASTATIN SODIUM 20 MG TAB PO SCH (08:09)
[2020-08-02] MEDS: TOBRA-DEXAMET 0.3-0.1% OPHTH DROPS 2.5 ML BTL BOTH EYES SCH ×2 (08:09→21:33)
[2020-08-02] MEDS: LOSARTAN-HCTZ 50-12.5 MG 1 EACH TAB PO SCH (08:09)
[2020-08-02] MEDS: KETOTIFEN 0.025% OPHTH DROPS 5 ML BTL BOTH EYES PRN (08:10)
[2020-08-02 08:52] LABS: Basophils # (A) 0.05 X 10*3/uL (0.00-0.10); Eosinophils # (A) 0.11 X 10*3/uL (0.04-0.35); Eosinophils % (A) 2.3 %; HCT 37.1 % (37.2-46.3); HGB 11.9 g/dL (12.0-15.0); Lymphocytes # (A) 1.71 X 10*3/uL (0.90-5.00); Lymphocytes % (A) 35.4 %; MCH 29.8 pg (27.0-32.0); MCHC 32.1 g/dL (32.0-37.0); MCV 92.8 fL (80.0-97.0); Mean Platelet Volume 12.1 fL (9.5-12.2); Monocytes # (A) 0.61 X 10*3/uL (0.20-1.00); Monocytes % (A) 12.6 %; Neutrophils # (A) 2.32 X 10*3/uL (1.80-7.70); Neutrophils % (A) 48.1 %; Platelet Count 160 X 10*3/uL (140-440); RDW 13.4 % (11.5-14.5); WBC 4.83 X 10*3/uL (4.50-10.00)
[2020-08-02 09:58] LABS: Albumin 4.2 g/dL (3.80-4.90); Albumin/Globulin Ratio 1.68 (1.60-3.17); BUN/Creat Ratio 26.67 Ratio (12.00-20.00); Globulin 2.5 g/dL (1.6-3.3); Non-African American GFR(CKD) 92.4 (60.0-200.0); Potassium 3.6 mmol/L (3.5-5.5); Total Bilirubin 0.7 mg/dL (0.2-1.2); Total Protein 6.7 g/dL (6.2-8.2)
[2020-08-02] MEDS ORDERED: amLODIPine 5 MG TAB PO SCH (10:15)
[2020-08-02] MEDS ORDERED: ALPRAZolam 0.25 MG TAB PO STA (11:30)
[2020-08-02] MEDS: amLODIPine 5 MG TAB PO SCH (11:34)
--- NOTE | 2020-08-02 13:00 | ECHOF ---
Referral Reason:re: LV function MEASUREMENTS -------- HEIGHT: 162.6 cm WEIGHT: 97.5 kg BP: 162/82 RVIDd: 3.3 cm (< 3.3) IVSd: 1.4 cm (0.6 - 1.1) LVIDd: 4.6 cm (3.9 - 5.3) LVPWd: 1.4 cm (0.6 - 1.1) IVSs: 1.8 cm LVIDs: 3.5 cm LVPWs: 1.5 cm LA Diam: 4.1 cm (2.7 - 3.8) LAESV Index (A-L): 35.85 ml/m Ao Diam: 3.1 cm (2.0 - 3.7) AV Cusp: 2.3 cm (1.5 - 2.6) MV EXCURSION: 17.354 mm (> 18.000) MV EF SLOPE: 79 mm/s (70 - 150) EPSS: 0.6 cm MV E Jaquan: 0.75 m/s MV DecT: 289 ms MV A Jaquan: 1.07 m/s MV E/A Ratio: 0.70 FINDINGS -------- Sinus rhythm. This was a technically good study. The left ventricular size is normal. There is moderate concentric left ventricular hypertrophy. O verall left ventricular systolic function is normal with, an EF between 60 - 65 %. The right ventricle is mildly enlarged. LA is moderately dilated 34-39 ml/m2 The right atrium is normal in size. Aneurysmal Interatrial septum. There is mild aortic valve sclerosis. Mild mitral annular calcification present. There is trace to mild mitral regurgitation. The tricuspid valve appears structurally normal. Trace/mild (physiologic) pulmonic regurgitation. The aortic root size is normal. The hepatic veins were not well visualized. There is no pericardial effusion. CONCLUSIONS -------- 1. The left ventricular size is normal. 2. There is moderate concentric left ventricular hypertrophy. 3. Overall left ventricular systolic function is normal with, an EF between 60 - 65 %. 4. The right ventricle is mildly enlarged. 5. LA is moderately dilated 34-39 ml/m2 6. Mild mitral annular calcification present. 7. There is trace to mild mitral regurgitation. 8. Trace/mild (physiologic) pulmonic regurgitation. 9. There is no pericardial effusion. TELEPHONIC CASE MANAGER: Dayna Bauer RDCS
--- NOTE | 2020-08-02 13:28 | P.PN ---
Subjective HISTORY OF PRESENTING ILLNESS This is a pleasant 69-year-old with past medical history significant for hypertension, hyperlipidemia, strong family history of coronary artery disease. 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 She states she had been feeling fairly well up until yesterday when she was walking around with her daughter and started feeling dizzy. She states she felt like the room was spinning around her, became nauseous, broke out in a sweat and felt like she was given a fall down. She denies any actual loss of consciousness. She states she felt better when she closes her eyes and rested for a few minutes. She then rested inside her daughter's house and waited for EMS and had a second episode. She denied any specific chest pain, pressure or shortness breath. She has not had anything similar in the past. 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 She states she had been feeling well up until last few weeks since she has been more active she notes feeling somewhat more short of breath. She is from family history with father dying of VT in his 40s, all her 6 siblings with open heart surgery. She has not had any recent echocardiogram or stress testing, no history of heart catheterization. EKG on presentation showed sinus bradycardia at 53 bpm. Troponin negative x 3 08/02/2020: Patient seen and examined at bedside, no acute distress. Laboratory data reviewed WBC 4.8, hemoglobin 11.9, platelets 160, sodium 141, potassium 3.6, serum creatinine 0.6, BUN 16. Patient was hypertensive this morning before a Lexiscan stress test patient's blood pressure was 198/85. Patient was started on amlodipine 5 mg daily. Lexiscan stress test was completed later today once the patient's blood pressure was better controlled. Patient currently being maintained on carvedilol 6.25 mg twice a day, losartanhydrochlorothiazide 5012 0.5 mg 2 daily, aspirin 81mmg daily, amlodipine 5mg daily. Echocardiogram revealed EF between 66 5%, RV is mildly enlarged, LA is moderately dilated, trace to mild mitral regurgitation. PHYSICAL EXAMINATION Vital signs reviewed. CONSTITUTIONAL: No apparent distress. HEENT: Head is normocephalic. No JVD. No carotid bruit. CHEST EXAMINATION: Lungs are clear to auscultation. HEART EXAMINATION: Regular rate and rhythm. S1, S2 heard. No murmurs, gallops or rub. ABDOMEN: Soft, nontender. Positive bowel sounds. EXTREMITIES: 2+ peripheral pulses, no lower extremity edema and no calf tenderness. NEUROLOGIC EXAMINATION: Patient is awake, alert and oriented x3. ASSESSMENT Dizziness, appears more related to vertigo with room spinning sensation improves with closing her eyes however also breaking out in a sweat becoming nauseous. Rule out cardiac source, hypo-perfusional. Nausea, diaphoresis associated with her dizziness, rule out atypical angina with strong family history Increased shortness breath over the last few weeks. May be deconditioning versus other Essential hypertension Hyperlipidemia Strong family history of coronary artery disease Asymptomatic sinus bradycardia PLAN Echocardiogram obtained and reviewed Patient with symptoms which appear more vertiginous in nature. Lexiscan today, if negative, ok to be discharged from a cardiology perspective and follow up outpatient with Dr. Gardiner. Objective - Vital Signs Vital signs: Vital Signs Temp 97.6 F 08/02/20 07:00 Pulse 68 08/02/20 11:59 Resp 16 08/02/20 11:59 BP 170/84 08/02/20 12:06 Pulse Ox 94 L 08/02/20 07:53 Intake & Output 08/01/20 08/02/20 08/02/20 18:59 06:59 18:59 Intake Total 118 118 Output Total 300 Balance 118 -300 118 Weight 97.52 kg Intake: Oral 118 118 Output: Urine 300 Other: Voiding Method Toilet Toilet Toilet # Voids 1 1 - Labs CBC & Chem 7: 08/02/20 04:50 08/02/20 04:50 Labs: Abnormal Lab Results - Last 24 Hours (Table) 08/02/20 08/02/20 Range/Units 04:50 04:50 RBC 4.00 L (4.10-5.20) X 10*6/uL Hgb 11.9 L (12.0-15.0) g/dL Hct 37.1 L (37.2-46.3) % BUN/Creatinine Ratio 26.67 H (12.00-20.00) Ratio
--- NOTE | 2020-08-02 13:58 | NM ---
EXAMINATION TYPE: NM stress lexiscan cardiolite DATE OF EXAM: 08/02/2020 COMPARISON: NONE HISTORY: Chest pain TECHNIQUE: After the intravenous administration of 10 mCi Tc 99m Sestamibi - Cardiolite resting SPEC T images acquired 95 minutes post injection. The patient received 0.4mg Lexiscan, 24.4 mCi Tc 99m Sestamibi - Stress images obtained [address] injection FINDINGS: Review of stress and rest SPECT images demonstrates decreased uptake on stress imaging along anterior wall left ventricle towards the apex extending into the septal and lateral aspects of the left ventr icle towards the apex, mild decreased persistent uptake seen on both stress and rest images along the lateral wall towards the apex, there is improved uptake at the apex on rest as compared to stress im ages however. Gated analysis shows normal wall motion with an estimated left ventricular ejection fr action of 54 %. IMPRESSION: Pharmacologically induced left ventricular myocardial ischemia, there may been prior infarct at the c ardiac apex towards the lateral wall
--- NOTE | 2020-08-02 14:31 | EST ---
EXERCISE STRESS AGE: 69 SEX: Female HT: 5'4" WT: 214 lbs. PROTOCOL: Lexiscan Cardiolite STAGE: N/A DURATION OF EXERCISE: N/A HEART RATE REST: 65 BLOOD PRESSURE REST: 155/87 MAXIMUM HEART RATE ACHIEVED: 91 MAXIMUM BLOOD PRESSURE: 155/87 85% MPHR: 128 100% MPHR: 150 METS: N/A INDICATIONS: Chest pain CLINICAL INFORMATION: Patient when she came in initially was slightly hypertensive. She was given amlodipine and brought back for the procedure. Baseline EKG revealed sinus mechanism with a nonspecific ST and T abnormality. With Lexiscan administration, heart rate changed from 65 to 90 beats per minute. Blood pressure changed from 155/87 to 144/78 and patient had mild chest discomfort. EKG remained inconclusive. Isolated PVCs were noted. Inferolateral ST-segment depression ST-T abnormalities persisted. By EKG criteria, this is an inconclusive Lexiscan stress test with resting EKG changes that became more prominent. Patient's the Lexiscan stress test is considered technically inconclusive. The nuclear scan results which are more pertinent will be reported by the radiologist. MMODL / IJN: [id number] /
[2020-08-02] MEDS ORDERED: NITROGLYCERIN SL TABS 0.4 MG TAB SUBLINGUAL PRN (15:06)
[2020-08-02] MEDS ORDERED: ALPRAZolam 0.25 MG TAB PO PRN (15:06)
[2020-08-02] MEDS: MONTELUKAST 10 MG TAB PO SCH (20:20)
[2020-08-02] MEDS: ALPRAZolam 0.5 MG TAB PO PRN (20:21)
[2020-08-03] MEDS ORDERED: SODIUM CHLORIDE 0.9% 1,000 ML in EMPTY BAG 1 BAG IV ONE (00:01)
[2020-08-03] MEDS: cycloSPORINE 0.05% OPHTH 0.4 ML DROPERETTE BOTH EYES SCH ×3 (00:44→22:10)
[2020-08-03 06:06] LABS: Basophils # (A) 0.1 k/uL (0-0.2); Basophils % (A) 1 %; Eosinophils # (A) 0.1 k/uL (0-0.7); Eosinophils % (A) 2 %; HCT 38.8 % (34.0-46.0); HGB 13.2 gm/dL (11.4-16.0); Lymphocytes # (A) 1.6 k/uL (1.0-4.8); Lymphocytes % (A) 33 %; MCH 30.5 pg (25.0-35.0); MCHC 34.1 g/dL (31.0-37.0); MCV 89.4 fL (80.0-100.0); Mean Platelet Volume 8.1; Monocytes # (A) 0.5 k/uL (0-1.0); Monocytes % (A) 10 %; Neutrophils # (A) 2.6 k/uL (1.3-7.7); Neutrophils % (A) 52 %; Platelet Count 166 k/uL (150-450); RBC 4.34 m/uL (3.80-5.40); RDW 12.6 % (11.5-15.5)
[2020-08-03] MEDS ORDERED: HEPARIN SODIUM,PORCINE 2,500 UNIT in SODIUM CHLORIDE 0.9% 250 ML IRRIGATION PRN (07:00)
[2020-08-03] MEDS ORDERED: HEPARIN SODIUM,PORCINE 10,000 UNIT in SODIUM CHLORIDE 0.9% 1,000 ML IRRIGATION PRN (07:00)
[2020-08-03] MEDS: amLODIPine 5 MG TAB PO SCH (07:02)
[2020-08-03] MEDS: LORATADINE 10 MG TAB PO SCH (07:02)
[2020-08-03] MEDS: ALPRAZolam 0.5 MG TAB PO PRN (07:02)
[2020-08-03] MEDS: carvediloL 6.25 MG TAB PO SCH ×2 (07:02→18:00)
[2020-08-03] MEDS: ASPIRIN 81 MG PO SCH (07:02)
[2020-08-03] MEDS: FAMOTIDINE 20 MG TAB PO SCH (07:03)
[2020-08-03] MEDS: MECLIZINE 25 MG TAB PO SCH ×3 (07:03→21:39)
[2020-08-03] MEDS: LOSARTAN-HCTZ 50-12.5 MG 1 EACH TAB PO SCH (07:03)
[2020-08-03] MEDS: PRAVASTATIN SODIUM 20 MG TAB PO SCH (07:03)
[2020-08-03] MEDS: TOBRA-DEXAMET 0.3-0.1% OPHTH DROPS 2.5 ML BTL BOTH EYES SCH ×2 (07:04→22:10)
[2020-08-03] MEDS: KETOTIFEN 0.025% OPHTH DROPS 5 ML BTL BOTH EYES PRN (07:04)
[2020-08-03] MEDS: ENOXAPARIN 40 MG/0.4 ML SYRINGE SQ SCH (07:11)
--- NOTE | 2020-08-03 09:30 | P.PN ---
Subjective Progress Note Date: 08/02/20 Patient was seen for a follow-up. Patient initially seen by Dr. Chidi Bhardwaj. Please refer to his note for details. Patient and her were present today. Patient is doing much better. Patient states that her vertigo is mostly gone. Patient had a stress test today, and since then she has some headache. Some blockage was identified and patient will undergo angioplasty tomorrow. Denies any focal symptoms at all. Objective - Vital Signs Vital signs: Vital Signs Temp 97.6 F 08/02/20 15:00 Pulse 68 08/02/20 15:00 Resp 16 08/02/20 15:00 BP 181/95 08/02/20 15:00 Pulse Ox 94 L 08/02/20 15:00 Intake & Output 08/01/20 08/02/20 08/02/20 18:59 06:59 18:59 Intake Total 118 118 Output Total 300 Balance 118 -300 118 Weight 97.52 kg Intake: Oral 118 118 Output: Urine 300 Other: Voiding Method Toilet Toilet Toilet # Voids 1 1 1 - Exam Patient is an elderly female, very pleasant, in no acute distress. Patient is alert awake oriented to time place and person. Speech and language functions are normal. Attention, concentration and fund of knowledge is adequate. On cranial examination, pupils are equal, round and reacting to light, visual ramires are full on confrontation, with no neglect, extraocular muscles are intact with no nystagmus. Face is symmetric, tongue protrudes to the midline. Palatal elevation and sensation normal, hearing and shoulder shrug normal, facial sensation normal. Shoulder shrug normal. On muscle strength testing, there is no pronator drift and the strength is normal in arms distally and proximally. Deep tendon reflexes are symmetric. Sensory to touch is equal with no neglect. Cerebellar function showed no ataxia for [id number] testing. No dysdiadochokinesia. Tone and bulk of muscles normal. Gait not checked. On general examination, there is no carotid bruit or murmur, S1-S2 audible. Abdomen is soft nontender. Chest is clear. Peripheral pulses are present. No edema. - Labs CBC & Chem 7: 08/03/20 05:46 08/02/20 04:50 Labs: Abnormal Lab Results - Last 24 Hours (Table) 08/02/20 08/02/20 Range/Units 04:50 04:50 RBC 4.00 L (4.10-5.20) X 10*6/uL Hgb 11.9 L (12.0-15.0) g/dL Hct 37.1 L (37.2-46.3) % BUN/Creatinine Ratio 26.67 H (12.00-20.00) Ratio Assessment and Plan Assessment: Vertigo, nausea and vomitting (improving today)---seems peripheral Hypertension Coronary artery disease. Plan: Patient's vertigo has resolved. She has mild headache, which she attributes to recent stress test. Patient's stress test was inconclusive. Lexiscan revealed pharmacologically induced left-ventricular myocardial ischemia, there may be prior infarct at the cardiac apex towards the lateral wall. Patient is undergoing coronary angioplasty tomorrow. CT of the head is reported as negative CT scan of the brain. Paranasal sinuses and external auditory canals are clear.. Carotid duplex is reported as atherosclerotic changes with no significant hemodynamic stenosis of the carotid arteries. Non-visualization left vertebral artery correlate for vertebral artery occlusion. CT angiography of the head and neck showed no sizable aneurysm or vascular malformation. Mild bilateral atherosclerotic plaque of the carotid bifurcation.. If the patient symptoms don't resolve by tomorrow then recommend MRI of the brain. Continue home dose aspirin 81 and pravastatin 20 mg daily 2-D echo revealed normal left-ventricular size, moderate concentric LVH, EF is 60-65%. Left atrium is moderately dilated. Mild mitral annular calcification. Trace to mild MR. PT and OT for gait mobility She is on meclizine 25 mg every 8 hours scheduled Her symptoms have resolved. If the symptoms recur, may consider ENT consult as outpatient. We will check B12, folate. Neurologically clear.
--- NOTE | 2020-08-03 10:05 | P.PN ---
Subjective Progress Note Date: 08/02/20 This is a 69-year-old female patient who presents to the ER with dizziness, nausea, vomiting and near syncopal episode. Patient reports that she was out with her daughter when she became very dizzy and nauseated. Patient denies any loss of consciousness or associated neurological symptoms. Patient does have a medical history of hypertension. Head CT of the head negative. Chest x-ray completed showing no active cardiopulmonary disease. All bladder ultrasound completed showing negative exam gallstones or dilated ducts. EKG completed showing sinus bradycardia. COVID-19 negative. Troponin negative. AST and ALT slightly elevated. At that time cardiology and neurology services will be consulted. Patient received Antivert and IV fluid. Patient reports that she feels much improved. She currently resting comfortably in bed. At this time patient denies any chest pain or shortness of breath. Patient denies nausea vomiting or diarrhea. Patient denies any urinary burning or frequency On 1Patient was seen and examined on the medical floor, he is alert and oriented x 3 in no distress, he denies any complaints there is no fever or chills no headache or dizziness no chest pain no shortness of breath no palpitation no cough no nausea or vomiting no abdominal pain no diarrhea no blood in the stools no burning with urination no frequency or urgency and no hematuria, there is no weakness or numbness in any of the extremities no change in vision speech or gait.. Patient had a stress test today which was abnormal and she is scheduled for cardiac catheterization tomorrow, will follow closely Objective - Vital Signs Vital signs: Vital Signs Temp 97.6 F 08/02/20 15:00 Pulse 68 08/02/20 15:00 Resp 16 08/02/20 15:00 BP 181/95 08/02/20 15:00 Pulse Ox 94 L 08/02/20 15:00 Intake & Output 08/01/20 08/02/20 08/02/20 18:59 06:59 18:59 Intake Total 118 118 Output Total 300 Balance 118 -300 118 Weight 97.52 kg Intake: Oral 118 118 Output: Urine 300 Other: Voiding Method Toilet Toilet Toilet # Voids 1 1 1 - Exam In general patient is alert and oriented x3 in no distress HEENT head normocephalic and atraumatic Neck is supple no JVD no goiter no lymphadenopathy no carotid bruit Chest examination is clear to auscultation no crackles no wheezing Cardiac exam reveals regular heart sounds S1 and S2 no gallops no murmurs Abdomen is soft nontender no organomegaly with normal bowel sounds Extremity exam reveals no edema no cyanosis or clubbing Neurological examination reveals no gross focal deficits - Labs CBC & Chem 7: 08/03/20 05:46 08/02/20 04:50 Labs: Abnormal Lab Results - Last 24 Hours (Table) 08/02/20 08/02/20 Range/Units 04:50 04:50 RBC 4.00 L (4.10-5.20) X 10*6/uL Hgb 11.9 L (12.0-15.0) g/dL Hct 37.1 L (37.2-46.3) % BUN/Creatinine Ratio 26.67 H (12.00-20.00) Ratio Assessment and Plan Assessment: 1. Dizziness with near syncopal episode. Cardiology services consulted. had a stress test today. 2-D echo ordered. Neurology services also consulted 2. History of essential hypertension 4. Hyperlipidemia 5. Slightly elevated liver enzymes. Repeat labs ordered 6. Abnormal stress test today scheduled for cardiac catheterization tomorrow DVT prophylaxis Lovenox. GI prophylaxis Pepcid Cardiology and neurology service is consulted Stress test ordered for 08/02/2020 2-D echo and carotid ultrasound ordered
[2020-08-03] MEDS ORDERED: IV FLUID CONTINUATION 1,000 ML IV ONE (11:07)
[2020-08-03] MEDS: LIDOCAINE 1% INJ 10MG/ML (20 ML MDV) SQ ONE ×2 (11:33→11:36)
[2020-08-03] MEDS ORDERED: MIDAZOLAM 2 MG/2 ML VIAL IVP ONE (11:33)
[2020-08-03] MEDS ORDERED: fentaNYL (PF) 50 MCG/ML 2 ML AMP IVP ONE (11:33)
[2020-08-03] MEDS ORDERED: VERAPAMIL SYRINGE (5 MG/10 ML) INTRAARTER ONE (11:45)
[2020-08-03] MEDS: HEPARIN SODIUM 1,000 UN/ML (10ML VL) IV ONE ×4 (11:48→12:58)
[2020-08-03] MEDS ORDERED: IOPAMIDOL-370 100ML BTL INJ ONE ×4 (12:21→14:16)
[2020-08-03] MEDS: hydrALAZINE HCL 20 MG/ML 1 ML VIAL IV ONE ×2 (12:31→12:40)
[2020-08-03] MEDS: MIDAZOLAM 2 MG/2 ML VIAL IVP ONE ×2 (12:40→13:41)
[2020-08-03] MEDS ORDERED: TICAGRELOR 90 MG TAB PO ONE (12:50)
[2020-08-03] MEDS ORDERED: NITROGLYCERIN 1000MCG/10ML SYRINGE INTRACORON ONE (13:00)
[2020-08-03] MEDS ORDERED: NOREPINEPHRINE 4 MG in SODIUM CHLORIDE 0.9% 250 ML IV ONE (13:05)
[2020-08-03 13:22] LABS: Albumin 4.4 g/dL (3.80-4.90); Albumin/Globulin Ratio 1.76 (1.60-3.17); Anion Gap 11.2 mmol/L (4.00-12.00); Calcium 9.2 mg/dL (8.7-10.3); Carbon Dioxide 26.8 mmol/L (21.6-31.8); Globulin 2.5 g/dL (1.6-3.3); Non-African American GFR(CKD) 92.4 (60.0-200.0); Potassium 3.4 mmol/L (3.5-5.5); Total Bilirubin 0.7 mg/dL (0.3-1.2); Total Protein 6.9 g/dL (6.2-8.2)
[2020-08-03] MEDS ORDERED: ONDANSETRON 4 MG/2 ML VIAL IVP ONE (14:09)
[2020-08-03] MEDS ORDERED: ATROPINE SULFATE 0.1 MG/ML 10ML SYRINGE IV PRN (14:22)
[2020-08-03] MEDS ORDERED: ZOLPIDEM 5 MG TAB PO PRN (14:22)
[2020-08-03] MEDS ORDERED: RX INFO: IV CONTRAST WAS GIVEN 1 EACH MISC MISCELLANE PRN (14:22)
[2020-08-03] MEDS ORDERED: MAG HYDROX/AL HYDROX/SIMETH 30 ML CUP PO PRN (14:22)
[2020-08-03] MEDS ORDERED: SODIUM CHLORIDE 0.9% 1,000 ML IV SCH (14:30)
[2020-08-03 16:05] LABS: Glucose,Whole Blood 102 mg/dL (75-99)
--- NOTE | 2020-08-03 17:30 | P.PN ---
Subjective Progress Note Date: 08/03/20 This is a 69-year-old female patient who presents to the ER with dizziness, nausea, vomiting and near syncopal episode. Patient reports that she was out with her daughter when she became very dizzy and nauseated. Patient denies any loss of consciousness or associated neurological symptoms. Patient does have a medical history of hypertension. Head CT of the head negative. Chest x-ray completed showing no active cardiopulmonary disease. All bladder ultrasound completed showing negative exam gallstones or dilated ducts. EKG completed showing sinus bradycardia. COVID-19 negative. Troponin negative. AST and ALT slightly elevated. At that time cardiology and neurology services will be consulted. Patient received Antivert and IV fluid. Patient reports that she feels much improved. She currently resting comfortably in bed. At this time patient denies any chest pain or shortness of breath. Patient denies nausea vomiting or diarrhea. Patient denies any urinary burning or frequency On 08/02/2020atient was seen and examined on the medical floor, he is alert and oriented x 3 in no distress, he denies any complaints there is no fever or chills no headache or dizziness no chest pain no shortness of breath no palpitation no cough no nausea or vomiting no abdominal pain no diarrhea no blood in the stools no burning with urination no frequency or urgency and no hematuria, there is no weakness or numbness in any of the extremities no change in vision speech or gait.. Patient had a stress test today which was abnormal and she is scheduled for cardiac catheterization tomorrow, will follow closely. On 08/03/2020atiolaf was seen and examined in the ICU, she is alert and oriented x 3 in no distress, she underwent cardiac catheterization with angioplasty and stent placement today subsequently she was having hypotension and was admitted to intensive care unit, she denies any complaints there is no fever or chills no headache or dizziness no chest pain no shortness of breath no palpitation no cough no nausea or vomiting no abdominal pain no diarrhea no blood in the stools no burning with urination no frequency or urgency and no hematuria, there is no weakness or numbness in any of the extremities no change in vision speech or gait. Objective - Vital Signs Vital signs: Vital Signs Temp 98.1 F 08/03/20 07:01 Pulse 75 08/03/20 15:46 Resp 16 08/03/20 15:46 BP 133/58 08/03/20 15:46 Pulse Ox 96 08/03/20 15:46 Intake & Output 08/02/20 08/03/20 08/03/20 18:59 06:59 18:59 Intake Total 418 1150 Output Total 300 Balance 418 850 Weight 97.52 kg Intake: IV 1050 Intake, IV Titration 100 Amount Sodium Chloride 0.9% 1, 100 000 ml @ 75 mls/hr IV . [id number] [facility] Rx#:[id number] Oral 418 Output: Urine 300 Other: Voiding Method Toilet Toilet # Voids 1 2 1 - Exam In general patient is alert and oriented x3 in no distress HEENT head normocephalic and atraumatic Neck is supple no JVD no goiter no lymphadenopathy no carotid bruit Chest examination is clear to auscultation no crackles no wheezing Cardiac exam reveals regular heart sounds S1 and S2 no gallops no murmurs Abdomen is soft nontender no organomegaly with normal bowel sounds Extremity exam reveals no edema no cyanosis or clubbing Neurological examination reveals no gross focal deficits - Labs CBC & Chem 7: 08/03/20 05:46 08/03/20 05:46 Labs: Abnormal Lab Results - Last 24 Hours (Table) 08/03/20 08/03/20 Range/Units 05:46 16:04 Potassium 3.4 L (3.5-5.5) mmol/L BUN/Creatinine Ratio 30.00 H (12.00-20.00) Ratio Glucose 122 H (70-110) mg/dL POC Glucose (mg/dL) 102 H (75-99) mg/dL Assessment and Plan Assessment: 1. Dizziness with near syncopal episode. Cardiology services consulted. had a stress test today. 2-D echo ordered. Neurology services also consulted 2. History of essential hypertension 4. Hyperlipidemia 5. Slightly elevated liver enzymes. Repeat labs ordered 6. Abnormal stress test, patient underwent cardiac catheterization with stent placement today she was having episode of hypotension and was admitted to intens epifanio care unit postprocedure DVT prophylaxis Lovenox. GI prophylaxis Pepcid Cardiology and neurology service is consulted
[2020-08-03 17:44] LABS: Folate, Serum >24.0 ng/mL
[2020-08-03] MEDS: MONTELUKAST 10 MG TAB PO SCH (21:39)
[2020-08-03] MEDS: TICAGRELOR 90 MG TAB PO SCH (21:40)
--- NOTE | 2020-08-04 00:27 | P.PRCINT ---
Percutaneous Coronary Int. - Percutaneous Coronary Intervention Percutaneous Coronary Intervention: PROCEDURES PERFORMED: Left heart catheterization, bilateral coronary angiography, PCI proximal LAD with 3.25 x 8mm Xience GEM, PCI left main into circumflex with 3.5 x 12mm Xience GEM, overlapping circumflex stent with additional 2.75 x 18mm Xience GEM, with final kissing balloon angioplasty with 3.0 NC balloons, IVUS LAD, circumflex, left main, iFR LAD INDICATION: Unstable angina, abnormal stress test HISTORY: Patient is a pleasant 69-year-old female with history of hypertension, hyperlipidemia, strong family history of coronary artery disease who has been having increased episodes of shortness breath with occasional diaphoresis. She also has been having some dizziness which is occasionally associated with movement. She therefore underwent stress test which showed inducible ischemia of the anterior wall there is the apex and septum. Therefore left heart catheterization was recommended. CONSENT:I have discussed the risks, benefits and alternative therapies for the above-mentioned procedure and for both sedation/analgesia as well as necessary blood product administration, if indicated, as they pertain to this patient. The patient has indicated understanding and acceptance of the risks and proce dures discussed. PROCEDURE: After the risks, benefits and alternatives of the above mentioned procedure explained in detail with the patient, informed consent was obtained. Patient was taken to the catheterization lab and prepped and draped in usual fashion. 1% lidocaine was used to anesthetize the right radial artery. A 6- Swazi sheath was placed in the right radial artery using modified Seldinger technique. Left coronary angiography was performed with a 5-Swazi JL 3.5 catheter and right coronary angiography was performed with a 6-Swazi JR5 catheter in various views. A 6-Swazi FR5 catheter was inserted into the left ventricle and pressure measurements were obtained. The decision was made to perform iFR of the LAD. A 6Fr CLS 3.5 guide was used to engage the left main. A 0.014 pressure wire was advanced into the left main and normalized. The iFR wire was advanced 1 cm distal to the proximal LAD lesion and iFR was performed and resulted at 0.64. Given Syntax score of 10 w ith nondominant right 60-70% stenosis and otherwise only proximal LAD disease the decision was made to perform PCI of the LAD. A second 0.014 BMW wire was advanced into the distal circumflex. Next a 3.25 x 12 mm Xience GEM was placed at the origin of the LAD. Unfortunately after deployment of stent patient began having chest pain, became hypotensive with systolics in the 70- 80s, previously being elevated throughout most of the rest of the procedure. The LAD stent appeared well post however there was what appeared to be a 70-80% stenosis of the circumflex from plaque shifting. Therefore CLYDE of the circumflex was performed which did show significant plaque shifting into the circumflex resulting in a 90% circumflex stenosis. Therefore the decision was made to perform stenting of the circumflex back in the left main with a left main noted to be diffusely diseased, 40% diffuse calcification and stenosis by CLYDE. The decision was made to use a 3.5 stent in the circumflex in order to be able to post dilate the more proximal portion up to the left main reference diameter of 4.0. First kissing balloon angioplasty was performed with a 3.0 balloon in the LAD and a 3.0 balloon in the circumflex. The iFR wire was exchanged for a BMW wire. Next a 3.5 x 12 mm Xience GEM was placed in the left main extending into the circumflex. The LAD wire was pulled and the LAD was rewired through the newly placed left main into circumflex stents. The origin LAD was first dilated with a 2.0 balloon. Next IVUS LAD was performed which verified wire positioning intraluminal and through the left main stents as well as showed good stent apposition distally without significant dissection and reference vessel 3.0 x 3.25 mm. Unfortunately repeat angiography showed dissection of the circumflex more distally and therefore this was covered with a 2.75 x 18 mm Xience GEM. Next a final kissing balloon angioplasty was performed with 3.0 noncompliant balloons in both the circumflex as well as LAD. Repeat IVUS showed excellent stent apposition and both the circumflex as well as LAD without any dissection with good stent apposition and dilation of the left main as well. Pre intervention there was 70% stenosis and ENRIKE 3 flow and post intervention there was 0% stenosis and ENRIKE 3 flow with no dissection. Final angiograms were performed. The right radial sheath was removed and a TR band was placed with hemostasis achieved. The patient had become hypotensive requiring brief vasopressors and had developed chest pain during procedure however this resolved by the end of the case and patient is feeling well at the end of the case. Patient was transported back to the post catheterization holding area in stable condition. Conscious Sedation: Patient was monitored under the direct supervision of vision of myself for conscious sedation using Versed and fentanyl for a total duration of 164 minutes HEMODYNAMICS: Ao: 174/78 LV: 176/4, LVEDP 15mmHg SELECTIVE CORONARY ARTERIOGRAPHY: LEFT MAIN: The left main is a large caliber vessel which bifurcates into the LAD and circumflex. There is diffuse tubular 30-40% stenosis. LEFT ANTERIOR DESCENDING CORONARY ARTERY: LAD is a large caliber vessel which wraps around to the apex. There is a proximal 60-70% LAD stenosis. There is diffuse 20-30% stenosis of the mid and distal LAD. LEFT CIRCUMFLEX CORONARY ARTERY: Left circumflex is a moderate to large caliber vessel and is the dominant vessel. There is a proximal 20-30% stenosis and diffuse mild to moderate stenosis of the left circumflex. The left circumflex gives off the PDA and is the dominant vessel. RIGHT CORONARY ARTERY: The right coronary artery is a small caliber vessel which gives off an RV branch and what appears to be a small PDA branch. The RCA is tortuous with diffuse mild disease including a mid RCA 60-70% stenosis. Syntax score: 10 FINAL IMPRESSION: 1. CAD as described above with iFR abnormal proximal LAD 60-70% stenosis, 60- 70% small caliber nondominant RCA stenosis. 2. S/p PCI proximal LAD with 3.25 x 8mm Xience GEM 3. Shifting of LAD/ left main plaque after PCI LAD, necessitating PCI left main into circumflex with 3.5 x 12mm Xience GEM, overlapping circumflex stent with additional 2.75 x 18mm Xience GEM PLAN: 1. Aggressive risk factor modification per most recent ACC/AHA guidelines. 2. Continue dual antiplatelets for 12 months.
[2020-08-04 03:58] LABS: Basophils % (A) 1 %; Eosinophils # (A) 0.1 k/uL (0-0.7); Eosinophils % (A) 1 %; HCT 35.1 % (34.0-46.0); HGB 11.6 gm/dL (11.4-16.0); Lymphocytes # (A) 1.2 k/uL (1.0-4.8); Lymphocytes % (A) 20 %; MCH 29.7 pg (25.0-35.0); MCV 90.2 fL (80.0-100.0); Mean Platelet Volume 8.4; Monocytes # (A) 0.5 k/uL (0-1.0); Monocytes % (A) 9 %; Neutrophils # (A) 4.2 k/uL (1.3-7.7); Neutrophils % (A) 68 %; Platelet Count 154 k/uL (150-450); RBC 3.89 m/uL (3.80-5.40); RDW 13.2 % (11.5-15.5); WBC 6.2 k/uL (3.8-10.6)
[2020-08-04 04:26] LABS: ALT 21 U/L (4-34); AST 27 U/L (14-36); African American GFR (CKD) >90 (>60 ml/min/1.73 sqM); Albumin 3.6 g/dL (3.5-5.0); Alkaline Phosphatase 68 U/L (38-126); Anion Gap 6 mmol/L; Blood Urea Nitrogen 18 mg/dL (7-17); Carbon Dioxide 27 mmol/L (22-30); Chloride 104 mmol/L (98-107); Glucose 95 mg/dL (74-99); Non-African American GFR(CKD) >90 (>60 ml/min/1.73 sqM); Sodium 137 mmol/L (137-145); Total Bilirubin 0.8 mg/dL (0.2-1.3); Total Protein 6.1 g/dL (6.3-8.2)
[2020-08-04 04:39] LABS: Potassium 3.1 mmol/L (3.5-5.1)
[2020-08-04] MEDS: carvediloL 6.25 MG TAB PO SCH (07:02)
[2020-08-04] MEDS: POTASSIUM CHLORIDE ER 20 MEQ TAB.ER PO SCH ×2 (07:02→10:41)
[2020-08-04] MEDS ORDERED: Potassium Replacement Protocol 1 EACH MISC MISCELLANE PRN (08:48)
[2020-08-04] MEDS ORDERED: ERGOCALCIFEROL 1,250 MCG (50,000 IU) CAPSULE PO SCH (09:00)
[2020-08-04] MEDS ORDERED: POTASSIUM CHLORIDE ER 20 MEQ TAB.ER PO SCH (09:00)
[2020-08-04] MEDS: ENOXAPARIN 40 MG/0.4 ML SYRINGE SQ SCH (10:35)
[2020-08-04] MEDS: ASPIRIN 81 MG PO SCH (10:35)
[2020-08-04] MEDS: MECLIZINE 25 MG TAB PO SCH (10:38)
[2020-08-04] MEDS: LORATADINE 10 MG TAB PO SCH (10:38)
[2020-08-04] MEDS: TICAGRELOR 90 MG TAB PO SCH (10:39)
[2020-08-04] MEDS: FAMOTIDINE 20 MG TAB PO SCH (10:40)
[2020-08-04] MEDS: cycloSPORINE 0.05% OPHTH 0.4 ML DROPERETTE BOTH EYES SCH (10:44)
[2020-08-04] MEDS: TOBRA-DEXAMET 0.3-0.1% OPHTH DROPS 2.5 ML BTL BOTH EYES SCH (10:44)
[2020-08-04] MEDS: LOSARTAN-HCTZ 50-12.5 MG 1 EACH TAB PO SCH (11:02)
[2020-08-04] MEDS: PRAVASTATIN SODIUM 20 MG TAB PO SCH (11:02)
--- NOTE | 2020-08-04 11:05 | P.PN ---
Subjective Progress Note Date: 08/04/20 HISTORY OF PRESENT ILLNESS: Patient underwent cardiac cath yesterday with Dr. Gardiner. Patient had PCI to proximal LAD and PCI to left main into circumflex. Patient was hypotensive and required vasopressors during the procedure and shortly afterwards. Patient has since been weaned off vasopressors. She denies chest pain or pressure. Denies shortness of breath. She has been up ambulating in her room. Telemetry reveals sinus mechanism. PHYSICAL EXAM: VITAL SIGNS: Reviewed. GENERAL: Well-developed in no acute distress. NECK: Supple. No JVD or thyromegaly LUNGS: Respirations even and unlabored. Lungs essentially clear to auscultation bilaterally. HEART: Regular rate and rhythm. S1 and S2 heard. EXTREMITIES: Normal range of motion. No clubbing or cyanosis. Peripheral pulses intact. No lower extremity edema. Right radial cath site with pulse present. ASSESSMENT: Coronary artery disease, s/p PCI to proximal LAD and PCI to left main into circumflex Hypotension requiring vasopressor support, resolved Dizziness Hypertension Hyperlipidemia Strong family history of coronary artery disease PLAN: Continue current cardiac medications Patient may be discharged home today from a cardiac standpoint Patient to follow up outpatient with Dr. Gardiner Nurse practitioner note has been reviewed by physician. Signing provider agrees with the documented findings, assessment, and plan of care. Objective - Vital Signs Vital signs: Vital Signs Temp 98.6 F 08/04/20 00:00 Pulse 70 08/04/20 07:00 Resp 13 08/04/20 07:00 BP 126/58 08/04/20 07:00 Pulse Ox 90 L 08/04/20 07:00 Intake & Output 08/03/20 08/04/20 08/04/20 18:59 06:59 18:59 Intake Total 1300 525 Output Total 300 625 0 Balance 1000 -100 0 Weight 99.1 kg Intake: IV 1200 525 0.9 150 525 Intake, IV Titration 100 Amount Sodium Chloride 0.9% 1, 100 000 ml @ 75 mls/hr IV . [id number] GULSHAN Rx#:[id number] Output: Urine 300 625 0 Other: Voiding Method Toilet # Voids 1 1 - Labs CBC & Chem 7: 08/04/20 03:27 08/04/20 03:27 Labs: Abnormal Lab Results - Last 24 Hours (Table) 08/03/20 08/03/20 08/04/20 Range/Units 05:46 16:04 03:27 Potassium 3.4 L 3.1 L (3.5-5.5) mmol/L BUN 18 H (7-17) mg/dL BUN/Creatinine Ratio 30.00 H (12.00-20.00) Ratio Glucose 122 H (70-110) mg/dL POC Glucose (mg/dL) 102 H (75-99) mg/dL Total Protein 6.1 L (6.3-8.2) g/dL
[2020-08-04 11:09] VITALS: BMI 37.5
--- NOTE | 2020-08-04 11:46 | P.DS ---
Providers Date of admission: 08/02/20 09:37 Expected date of discharge: 08/04/20 Attending physician: Urvashi Lion Consults: 07/31/20 19:24 Consult Physician Routine Consulting Provider: Pau Reyes Consult Reason/Comments: chest/epigastric pain, syncope Do you want consulting provider notified?: Yes, Notify in am 08/01/20 09:12 Consult Physician Routine Consulting Provider: Chidi Bhardwaj Consult Reason/Comments: dizziness Do you want consulting provider notified?: Yes 08/03/20 14:23 Consult Physician Routine Consulting Provider: Pau Reyes Consult Reason/Comments: Post Interventional patient Do you want consulting provider notified?: Already Contacted Primary care physician: Urvashijosiah Lion [facility] Course: Discharge diagnosis 1. Dizziness with near syncopal episode. 2. History of essential hypertension 4. Hyperlipidemia 5. Slightly elevated liver enzymes. Repeat labs ordered. Resolved 6. Abnormal stress test, patient underwent cardiac catheterization with stent placement today she was having episode of hypotension and was admitted to intensive care unit postprocedure 7. Coronary artery disease status post PCI to proximal LAD and PCI to left main into circumflex Hospital course This is a 69-year-old female patient who presents to the ER with dizziness, nausea, vomiting and near syncopal episode. Patient reports that she was out with her daughter when she became very dizzy and nauseated. Patient denies any loss of consciousness or associated neurological symptoms. Patient does have a medical history of hypertension. Head CT of the head negative. Chest x-ray completed showing no active cardiopulmonary disease. All bladder ultrasound completed showing negative exam gallstones or dilated ducts. EKG completed showing sinus bradycardia. COVID-19 negative. Troponin negative. AST and ALT slightly elevated. At that time cardiology and neurology services will be consulted. Patient received Antivert and IV fluid. Patient reports that she feels much improved. She currently resting comfortably in bed. At this time patient denies any chest pain or shortness of breath. Patient denies nausea vomiting or diarrhea. Patient denies any urinary burning or frequency On 08/02/2020atient was seen and examined on the medical floor, he is alert and oriented x 3 in no distress, he denies any complaints there is no fever or chills no headache or dizziness no chest pain no shortness of breath no palpitation no cough no nausea or vomiting no abdominal pain no diarrhea no blood in the stools no burning with urination no frequency or urgency and no hematuria, there is no weakness or numbness in any of the extremities no change in vision speech or gait.. Patient had a stress test today which was abnormal and she is scheduled for cardiac catheterization tomorrow, will follow closely. On 08/03/2020atient was seen and examined in the ICU, she is alert and oriented x 3 in no distress, she underwent cardiac catheterization with angioplasty and stent placement today subsequently she was having hypotension and was admitted to intensive care unit, she denies any complaints there is no fever or chills no headache or dizziness no chest pain no shortness of breath no palpitation no cough no nausea or vomiting no abdominal pain no diarrhea no blood in the stools no burning with urination no frequency or urgency and no hematuria, there is no weakness or numbness in any of the extremities no change in vision speech or gait. On 08/04/2020 patient is currently in the intensive care unit due to monitoring post intervention for hypotension. This has resolved. Current blood pressure 126/58. Patient has been cleared by cardiology services for discharge. Patient will be discharged on Brilinta. Patient also discharged on Antivert when necessary for dizziness. At the time patient denies any chest pain or shortness of breath. Patient denies nausea vomiting or diarrhea. Patient denies any urinary burning or frequency. Patient educated on the importance of medical compliance and close follow up with PCP and cardiology services Patient Condition at Discharge: Stable Plan - Discharge Summary New Discharge Prescriptions: New Meclizine [Antivert] 25 mg PO TID PRN 7 Days #21 tab PRN Reason: dizziness Ticagrelor [Brilinta] 90 mg PO BID #180 tab Continue carvediloL [Coreg] 6.25 mg PO BID Aspirin [Adult Low Dose Aspirin EC] 81 mg PO DAILY cycloSPORINE 0.05% OPHTH SOLN [Restasis] 1 drop BOTH EYES Q12H Tobra-Dexamet 0.3-0.1% Eye Sharla [Tobradex Ophth Susp] 1 drops BOTH EYES BID Montelukast [Singulair] 10 mg PO HS Desloratadine 5 mg PO DAILY Ergocalciferol [Vitamin D2 (1250 Mcg = 92588 Iu)] 1,250 mcg PO WE Pravastatin Sodium [Pravachol] 20 mg PO DAILY Ketotifen 0.025% Ophth Soln [Zaditor] 1 drop BOTH EYES BID PRN PRN Reason: DRY EYES Losartan/Hydrochlorothiazide [Losartan-Hctz 100-25 mg Tab] 1 tab PO DAILY Fexofenadine HCl [Kamille Allergy] 180 mg PO DAILY Discharge Medication List Aspirin [Adult Low Dose Aspirin EC] 81 mg PO DAILY 07/14/16 [History] carvediloL [Coreg] 6.25 mg PO BID 07/14/16 [History] Desloratadine 5 mg PO DAILY 07/31/20 [History] Ergocalciferol [Vitamin D2 (1250 Mcg = 54535 Iu)] 1,250 mcg PO WE 07/31/20 [History] Fexofenadine HCl [Kamille Allergy] 180 mg PO DAILY 07/31/20 [History] Ketotifen 0.025% Ophth Soln [Zaditor] 1 drop BOTH EYES BID PRN 07/31/20 [History] Losartan/Hydrochlorothiazide [Losartan-Hctz 100-25 mg Tab] 1 tab PO DAILY 07/31/20 [History] Montelukast [Singulair] 10 mg PO HS 07/31/20 [History] Pravastatin Sodium [Pravachol] 20 mg PO DAILY 07/31/20 [History] Tobra-Dexamet 0.3-0.1% Eye Sharla [Tobradex Ophth Susp] 1 drops BOTH EYES BID 07/31/20 [History] cycloSPORINE 0.05% OPHTH SOLN [Restasis] 1 drop BOTH EYES Q12H 07/31/20 [History] Meclizine [Antivert] 25 mg PO TID PRN 7 Days #21 tab 08/04/20 [Rx] Ticagrelor [Brilinta] 90 mg PO BID #180 tab 08/04/20 [Rx] Follow up Appointment(s)/Referral(s): Ivan Gardiner DO [STAFF PHYSICIAN] - 2 Weeks Urvashi Lion MD [Primary Care Provider] - 1-2 days Activity/Diet/Wound Care/Special Instructions: Activity as tolerated Diet heart healthy Discharge Disposition: HOME SELF-CARE
[2020-08-04 12:25] VITALS: PULSE 75
[2020-08-04 12:27] VITALS: BP 122/61; RESP 19; TEMP 98.3
--- NOTE | 2020-08-04 14:55 | CDI ---
Documentation Clarification Form Date: 08/04/2020 01:48:50 PM From: Kierra Joe RN, CCDS Admit Date: 08/02/2020 09:37:00 AM Patient Name: Olinda Francois Visit Number: [id number] Discharge Date: 08/04/2020 01:01:00 PM ATTENTION: The Clinical Documentation Specialists (CDI) and [facility] Coding Staff appreciate your assistance in clarifying documentation. Please respond to the clarification below the line at the bottom and electronically sign. The CDI & [facility] Coding staff will review the response and follow-up if needed. Please note: Queries are made part of the Legal Health Record. If you have any questions, please contact the author of this message via ITS. Dr. Ivan Gardiner Hypotension during the PCI and shortly afterwards requiring vasopressor is documented 08/04/20. Additional clarification is requested regarding the relationship, if any, that exists between the diagnosis and the procedure. Patients Admitting Diagnosis: Abnormal stress test Post-Operative Diagnosis: Coronary artery disease Procedure performed: Left heart catheterization, bilateral coronary angiography, PCI proximal LAD with GEM, PCI left main into circumflex with GEM, overlapping circumflex stent with additional GEM. History/Risk Factors: hypertension, Hyperlipidemia, family history of coronary artery disease Clinical Indicators: 69-year-old female present with complaints of having increased episodes of shortness of breath, dizziness with occasional diaphoresis. She had a stress test which showed inducible ischemia of the anterior wall the apex and septum 08/03 procedure note: after deployment of stent patient began having chest pain, became hypotensive with systolic in the 70-80s, 08/03 13:02:56 procedure report: VS 71/42 70 15 SPO2 98 % Treatment: ICU/Telemetry monitoring Levophed 4 mg IV as directed (08/03 .9NS 97.MLS HR What relationship, if any, exists between the diagnosis of hypotension and the procedure? [ ] Hypotension] is a complication of surgical procedure [ ] Hypotension is an expected outcome of the surgical procedure [ ] Hypotension is related to patients co-morbid condition(s) of [insert co- morbid dxs] & not a complication of the procedure [ ] Other please specify ____ [ ] Unable to determine (Template Last Revised: May 2020) Hypotension is a complication of the procedure. There was no hypotension after the procedure and hypotension only occurred during the procedure. GERALDINED
--- NOTE | 2020-08-04 16:02 | CDI ---
Documentation Clarification Form Date: 08/04/2020 03:03:55 PM From: Kierra Joe RN, CCDS Admit Date: 08/02/2020 09:37:00 AM Patient Name: Olinda Francois Visit Number: [id number] Discharge Date: 08/04/2020 01:01:00 PM ATTENTION: The Clinical Documentation Specialists (CDI) and [facility] Coding Staff appreciate your assistance in clarifying documentation. Please respond to the clarification below the line at the bottom and electronically sign. The CDI & [facility] Coding staff will review the response and follow-up if needed. Please note: Queries are made part of the Legal Health Record. If you have any questions, please contact the author of this message via ITS. Dr. Ivan Gardiner Dissection of the circumflex more distally,, is documented in the PCI procedure report on and this was covered with a 2.75 x18 mm Xience GEM Additional clarification is requested regarding the relationship, if any, that exists between the diagnosis and the procedure. Patients Admitting Diagnosis: Unstable angina, abnormal stress test Post-Operative Diagnosis: Coronary artery disease Procedure performed: Left heart catherization, bilateral coronary angiography, PCI proximal LAD with GEM, Shifting of LAD/left main plaque after PCI LAD, necessitation PCI left main to circumflex with GEM, overlapping circumflex stent with additional GEM. History/Risk Factors: Hypertension, Hyperlipidemia, family history of coronary artery disease Clinical Indicators: 69-year-old female present on 07/31 for syncope. She had an abnormal stress test on 08/02 which showed inducible ischemia. On 08/03 she had a left heart catheterization, bilateral coronary angiography, PCI, GEM to LAD, left main to circumflex, overlapping circumflex stent with additional GEM. 08/03 PCI report: Unfortunately repeat angiography showed dissection of the circumflex more distally and therefore this was covered with a 2.75 x 18 mm Xience GEM. Next a final kissing balloon angioplasty was performed with 3.0 noncompliant balloons in both the circumflex as well as LAD. Repeat IVUS showed excellent stent apposition and both the circumflex as well as LAD without any dissection 08/03 14:55 VS: 108/54 70 16 96% RA Treatment: ICU/Telemetry monitoring Aggressive risk factor modification ASA 81 MG PO Daily Coreg 6.25 MG PO BID Brilinta 90 MG PO BID What relationship, if any, exists between the diagnosis of dissection of the circumflex and the procedure? [ ] Dissection of the circumflex is a complication of surgical procedure [ ] Dissection of the circumflex is an expected outcome of the surgical procedure [ ] Dissection of the circumflex is related to patients co-morbid condition(s) of [Specify)] & not a complication of the procedure [ ] Dissection of the circumflex] has been ruled out [ ] Other please specify ____ [ ] Unable to determine (Template Last Revised: May 2020) Dissection is an expected outcome of surgical procedure/ stenting and was treated appropriately with a stent, leaving no further dissection. GERALDINED
== END 2020-08-04 13:01 | disposition home or self-care (01) | DRG 246 ==
LOC: EC 14:56 → 6NMEDSUR 19:21 → OBSVTOIN 08-02 09:37 → 2SICU 08-03 14:46
PROVIDERS: ADMIT Internal Medicine; ATTEND Internal Medicine
PROC: 027136Z Dilation of Coronary Artery, Two Arteries with Three Drug-eluting Intraluminal Devices, Percutaneous Approach (ICD-10-PCS; principal; 2020-08-03 10:50)
PROC: 4A023N7 Measurement of Cardiac Sampling and Pressure, Left Heart, Percutaneous Approach (ICD-10-PCS; 2020-08-03 10:50)
PROC: B2111ZZ Fluoroscopy of Multiple Coronary Arteries using Low Osmolar Contrast (ICD-10-PCS; 2020-08-03 10:50)
PROC: B245ZZ3 Ultrasonography of Left Heart, Intravascular (ICD-10-PCS; 2020-08-03 10:50)
PROC: 3E033XZ Introduction of Vasopressor into Peripheral Vein, Percutaneous Approach (ICD-10-PCS; 2020-08-03 10:50)
DX: I25.110 Atherosclerotic heart disease of native coronary artery with unstable angina pectoris (principal); I25.42 Coronary artery dissection; I97.88 Other intraoperative complications of the circulatory system, not elsewhere classified; I25.9 Chronic ischemic heart disease, unspecified; I10 Essential (primary) hypertension; E78.5 Hyperlipidemia, unspecified; Z20.822 Contact with and (suspected) exposure to COVID-19; Z79.82 Long term (current) use of aspirin; Z82.49 Family history of ischemic heart disease and other diseases of the circulatory system; I25.10 Atherosclerotic heart disease of native coronary artery without angina pectoris; R42 Dizziness and giddiness; Z88.2 Allergy status to sulfonamides; R74.8 Abnormal levels of other serum enzymes; R00.1 Bradycardia, unspecified; Y83.8 Other surgical procedures as the cause of abnormal reaction of the patient, or of later complication, without mention of misadventure at the time of the procedure; Y92.234 Operating room of hospital as the place of occurrence of the external cause; Z90.710 Acquired absence of both cervix and uterus; Z79.899 Other long term (current) drug therapy; I95.89 Other hypotension
CPT/HCPCS: 36415; 70450; 70496; 70498; 71045; 76705; 78452; 80053; 81003; 82607; 82746; 83735; 84484; 85025; 85379; 85610; 85730; 87635; 92978; 93005; 93017; 93306; 93458; 93571; 93880; 94760; 96374; 99285

== ENCOUNTER 2020-09-22 17:57 | Emergency (ER) | payer MEDICARE, OTHER ==
[2020-09-22 18:11] VITALS: RESP 18
[2020-09-22] MEDS ORDERED: SODIUM CHLORIDE 0.9% 500 ML 500 ML IV STA (18:38)
--- NOTE | 2020-09-22 18:40 | ED ---
Abdominal Pain HPI - General Chief Complaint: Abdominal Pain Stated Complaint: Rt Side Pain (GallBladder) Time Seen by Provider: 09/22/20 18:17 Source: patient, family, RN notes reviewed Mode of arrival: ambulatory Limitations: no limitations - History of Present Illness Initial Comments: 69-year-old female sent emergency Department chief complaint abdominal pain. Patient states been increased last few days. Patient states it's primary on the right side. Patient saw PCP who ordered a CAT scan next week. Patient states pain worse and was advised, emergency from. Denies any nausea vomiting diarrhea constipation patient had a prior hysterectomy. She states she has constant pain but occasionally has increasing intense pain. No chest pain or shortness breath - Related Data Home Medications Medication Instructions Recorded Confirmed Aspirin [Adult Low Dose Aspirin EC] 81 mg PO DAILY 07/14/16 07/31/20 carvediloL [Coreg] 6.25 mg PO BID 07/14/16 07/31/20 Desloratadine 5 mg PO DAILY 07/31/20 07/31/20 Ergocalciferol [Vitamin D2 (1250 1,250 mcg PO WE 07/31/20 07/31/20 Mcg = 71244 Iu)] Fexofenadine HCl [[place] Allergy] 180 mg PO DAILY 07/31/20 07/31/20 Ketotifen 0.025% Ophth Soln 1 drop BOTH EYES BID PRN 07/31/20 07/31/20 [Zaditor] Losartan/Hydrochlorothiazide 1 tab PO DAILY 07/31/20 07/31/20 [Losartan-Hctz 100-25 mg Tab] Montelukast [Singulair] 10 mg PO HS 07/31/20 07/31/20 Pravastatin Sodium [Pravachol] 20 mg PO DAILY 07/31/20 07/31/20 Tobra-Dexamet 0.3-0.1% Eye Sharla 1 drops BOTH EYES BID 07/31/20 07/31/20 [Tobradex Ophth Susp] cycloSPORINE 0.05% OPHTH SOLN 1 drop BOTH EYES Q12H 07/31/20 07/31/20 [Restasis] Previous Rx's Medication Instructions Recorded Meclizine [Antivert] 25 mg PO TID PRN 7 Days #21 tab 08/04/20 Ticagrelor [Brilinta] 90 mg PO BID #180 tab 08/04/20 Allergies Allergy/AdvReac Type Severity Reaction Status Date / Time Sulfa (Sulfonamide Allergy Unknown Rash/Hives Verified 09/22/20 18:08 Antibiotics) Review of Systems ROS Statement: Those systems with pertinent positive or pertinent negative responses have been documented in the HPI. ROS Other: All systems not noted in ROS Statement are negative. Past Medical History Past Medical History: Hypertension Additional Past Medical History / Comment(s): PSORIASIS OF SCALP. History of Any Multi-Drug Resistant Organisms: None Reported Past Surgical History: Heart Catheterization With Stent, Hysterectomy Past Anesthesia/Blood Transfusion Reactions: No Reported Reaction Past Psychological History: No Psychological Hx Reported Smoking Status: Never smoker Past Alcohol Use History: None Reported Past Drug Use History: None Reported - Past Family History Mother Family Medical History: No Reported History General Exam Limitations: no limitations Head exam: Present: atraumatic, normocephalic, normal inspection Eye exam: Present: normal appearance, PERRL, EOMI. Absent: scleral icterus, conjunctival injection, periorbital swelling Respiratory exam: Present: normal lung sounds bilaterally. Absent: respiratory distress, wheezes, rales, rhonchi, stridor Cardiovascular Exam: Present: regular rate, normal rhythm, normal heart sounds. Absent: systolic murmur, diastolic murmur, rubs, gallop, clicks GI/Abdominal exam: Present: soft, tenderness (Moderate right quadrant), normal bowel sounds. Absent: distended, guarding, rebound, rigid Back exam: Absent: CVA tenderness (R), CVA tenderness (L) Neurological exam: Present: alert Skin exam: Present: warm, dry, intact, normal color. Absent: rash Course Vital Signs 09/22/20 09/22/20 09/22/20 18:08 18:30 21:15 Temperature 98.0 F 97.1 F L Pulse Rate 69 61 71 Respiratory 18 18 18 Rate Blood Pressure 191/81 185/84 188/91 O2 Sat by Pulse 97 97 95 Oximetry Medical Decision Making - Medical Decision Making Patient's workup is negative this time she does not reveal any acute abnormality. Patient may have underlying dysfunctional gallbladder she'll follow-up with PCP and surgeon. Patient will follow-up for diet. - Lab Data Result diagrams: 09/22/20 18:48 09/22/20 18:48 Lab Results 09/22/20 09/22/2021 Range/Units 18:48 18:48 18:48 WBC 6.8 (3.8-10.6) k/uL RBC 4.15 (3.80-5.40) m/uL Hgb 12.7 (11.4-16.0) gm/dL Hct 36.4 (34.0-46.0) % MCV 87.8 (80.0-100.0) fL MCH 30.7 (25.0-35.0) pg MCHC 34.9 (31.0-37.0) g/dL RDW 12.8 (11.5-15.5) % Plt Count 222 (150-450) k/uL MPV 8.2 Neutrophils % 59 % Lymphocytes % 26 % Monocytes % 10 % Eosinophils % 2 % Basophils % 1 % Neutrophils # 4.0 (1.3-7.7) k/uL Lymphocytes # 1.8 (1.0-4.8) k/uL Monocytes # 0.7 (0-1.0) k/uL Eosinophils # 0.2 (0-0.7) k/uL Basophils # 0.1 (0-0.2) k/uL Sodium 139 (137-145) mmol/L Potassium 3.6 (3.5-5.1) mmol/L Chloride 102 (98-107) mmol/L Carbon Dioxide 29 (22-30) mmol/L Anion Gap 8 mmol/L BUN 22 H (7-17) mg/dL Creatinine 0.77 (0.52-1.04) mg/dL Est GFR (CKD-EPI)AfAm >90 (>60 ml/min/1.73 sqM) Est GFR (CKD-EPI)NonAf 78 (>60 ml/min/1.73 sqM) Glucose 109 H (74-99) mg/dL Plasma Lactic Acid Ryan (0.7-2.0) mmol/L Calcium 9.8 (8.4-10.2) mg/dL Total Bilirubin 0.3 (0.2-1.3) mg/dL AST 26 (14-36) U/L ALT 17 (4-34) U/L Alkaline Phosphatase 103 (38-126) U/L Total Protein 7.1 (6.3-8.2) g/dL Albumin 4.4 (3.5-5.0) g/dL Amylase 64 (30-110) U/L Lipase 117 (23-300) U/L Urine Color Light Yellow Urine Appearance Clear (Clear) Urine pH 6.5 (5.0-8.0) Ur Specific [place] 1.024 (1.001-1.035) Urine Protein Negative (Negative) Urine Glucose (UA) Negative (Negative) Urine Ketones Negative (Negative) Urine Blood Negative (Negative) Urine Nitrite Negative (Negative) Urine Bilirubin Negative (Negative) Urine Urobilinogen <2.0 (<2.0) mg/dL Ur Leukocyte Esterase Negative (Negative) 09/22/20 Range/Units 18:48 WBC (3.8-10.6) k/uL RBC (3.80-5.40) m/uL Hgb (11.4-16.0) gm/dL Hct (34.0-46.0) % MCV (80.0-100.0) fL MCH (25.0-35.0) pg MCHC (31.0-37.0) g/dL RDW (11.5-15.5) % Plt Count (150-450) k/uL MPV Neutrophils % % Lymphocytes % % Monocytes % % Eosinophils % % Basophils % % Neutrophils # (1.3-7.7) k/uL Lymphocytes # (1.0-4.8) k/uL Monocytes # (0-1.0) k/uL Eosinophils # (0-0.7) k/uL Basophils # (0-0.2) k/uL Sodium (137-145) mmol/L Potassium (3.5-5.1) mmol/L Chloride (98-107) mmol/L Carbon Dioxide (22-30) mmol/L Anion Gap mmol/L BUN (7-17) mg/dL Creatinine (0.52-1.04) mg/dL Est GFR (CKD-EPI)AfAm (>60 ml/min/1.73 sqM) Est GFR (CKD-EPI)NonAf (>60 ml/min/1.73 sqM) Glucose (74-99) mg/dL Plasma Lactic Acid Ryan 0.6 L (0.7-2.0) mmol/L Calcium (8.4-10.2) mg/dL Total Bilirubin (0.2-1.3) mg/dL AST (14-36) U/L ALT (4-34) U/L Alkaline Phosphatase (38-126) U/L Total Protein (6.3-8.2) g/dL Albumin (3.5-5.0) g/dL Amylase (30-110) U/L Lipase (23-300) U/L Urine Color Urine Appearance (Clear) Urine pH (5.0-8.0) Ur Specific [place] (1.001-1.035) Urine Protein (Negative) Urine Glucose (UA) (Negative) Urine Ketones (Negative) Urine Blood (Negative) Urine Nitrite (Negative) Urine Bilirubin (Negative) Urine Urobilinogen (<2.0) mg/dL Ur Leukocyte Esterase (Negative) Disposition Clinical Impression: Abdominal pain Disposition: HOME SELF-CARE Condition: Stable Instructions (If sedation given, give patient instructions): Abdominal Pain (ED), Low Fat Diet (ED) Additional Instructions: Please return to the Emergency Department if symptoms worsen or any other concerns. Is patient prescribed a controlled substance at d/c from ED?: No Referrals: Urvashi Lion MD [Primary Care Provider] - 1-2 days Katie Aquino MD [STAFF PHYSICIAN] - 1-2 days Time of Disposition: 21:33
[2020-09-22] MEDS ORDERED: KETOROLAC 15 MG/ML 1 ML VIAL IVP STA (19:00)
[2020-09-22 19:01] LABS: Basophils # (A) 0.1 k/uL (0-0.2); Basophils % (A) 1 %; Eosinophils # (A) 0.2 k/uL (0-0.7); Eosinophils % (A) 2 %; HCT 36.4 % (34.0-46.0); HGB 12.7 gm/dL (11.4-16.0); Lymphocytes # (A) 1.8 k/uL (1.0-4.8); Lymphocytes % (A) 26 %; MCH 30.7 pg (25.0-35.0); MCHC 34.9 g/dL (31.0-37.0); MCV 87.8 fL (80.0-100.0); Mean Platelet Volume 8.2; Monocytes # (A) 0.7 k/uL (0-1.0); Monocytes % (A) 10 %; Neutrophils % (A) 59 %; Platelet Count 222 k/uL (150-450); RBC 4.15 m/uL (3.80-5.40); RDW 12.8 % (11.5-15.5); WBC 6.8 k/uL (3.8-10.6)
[2020-09-22 19:15] LABS: ALT 17 U/L (4-34); AST 26 U/L (14-36); African American GFR (CKD) >90 (>60 ml/min/1.73 sqM); Albumin 4.4 g/dL (3.5-5.0); Alkaline Phosphatase 103 U/L (38-126); Amylase 64 U/L (30-110); Anion Gap 8 mmol/L; Blood Urea Nitrogen 22 mg/dL (7-17); Calcium 9.8 mg/dL (8.4-10.2); Carbon Dioxide 29 mmol/L (22-30); Chloride 102 mmol/L (98-107); Glucose 109 mg/dL (74-99); Lipase 117 U/L (23-300); Non-African American GFR(CKD) 78 (>60 ml/min/1.73 sqM); Potassium 3.6 mmol/L (3.5-5.1); Sodium 139 mmol/L (137-145); Total Bilirubin 0.3 mg/dL (0.2-1.3); Total Protein 7.1 g/dL (6.3-8.2)
[2020-09-22 20:12] LABS: Appearance,Urine Clear (Clear); Bilirubin,Urine Negative (Negative); Blood,Urine Negative (Negative); Color,Urine Light Yellow; Glucose,Urine (UA) Negative (Negative); Ketones,Urine Negative (Negative); Leukocyte Esterase,Urine Negative (Negative); Nitrite,Urine Negative (Negative); PH, Urine 6.5 (5.0-8.0); Protein,Urine Negative (Negative); Specific Gravity,Urine 1.024 (1.001-1.035); Urobilinogen,Urine <2.0 mg/dL (<2.0)
--- NOTE | 2020-09-22 20:16 | CT ---
EXAMINATION TYPE: CT abdomen pelvis w con DATE OF EXAM: 09/22/2020 COMPARISON: None HISTORY: RUQ pain CT DLP: 1600.2 mGycm Automated exposure control for dose reduction was used. CONTRAST: Performed with IV Contrast, patient injected with 100 mL of Isovue 300. Images obtained from the diaphragm to the floor the pelvis with IV contrast. There is minimal subsegmental atelectasis at the right lung base. Heart appears slightly enlarged. Th ere is no pericardial effusion. There is no pleural effusion. Liver is intact. Gallbladder is contrac chung. The bile ducts are not dilated. Spleen is intact. Stomach and pancreas appear intact. There is no adrenal mass. Kidneys show satisfactory contrast opacification. There is no hydronephrosi s. Ureters are not dilated. There is no retroperitoneal adenopathy. Bladder distends smoothly. There is no inguinal hernia. There are sigmoid diverticula. There is no diverticulitis. There is no mesenteric edema. There is no ascites or free air. There is no bowel obstruction. Appendi x is not clearly seen. There is no sign of thickened appendix. The lumbar vertebra have fairly normal alignment. There is a minimal L4-5 subluxation of 5 mm. There is no spondylolysis. There is no compression fracture. Bony pelvis is intact. The hip joints are inta ct. IMPRESSION: Minimal subsegmental atelectasis right lung base. Appendix not seen. No sign of thickened appendix. N o sign of acute abdomen and pelvis. Mild sigmoid diverticulosis..
[2020-09-22 21:16] VITALS: BP 188/91; PULSE 71; TEMP 97.1
[2020-09-22] MEDS ORDERED: ACET/COD 300 MG/30 MG STARTER PACK 6 TAB BTL PO STA (21:31)
== END 2020-09-22 21:49 | disposition home or self-care (01) ==
LOC: EC 17:57
DX: R10.9 Unspecified abdominal pain (principal); I10 Essential (primary) hypertension; Z79.82 Long term (current) use of aspirin; Z95.5 Presence of coronary angioplasty implant and graft; Z90.710 Acquired absence of both cervix and uterus
CPT/HCPCS: 99284 ×2; 96374 ×2; 36415; 80053; 82150; 83605; 83690; 85025; 81003; 74177; J1885

== ENCOUNTER → 2021-08-23 | Outpatient (CLI) | payer MEDICARE, OTHER ==
--- NOTE | 2021-08-25 17:59 | MM ---
Reason for Exam: Screening (asymptomatic). Last mammogram was performed 1 year(s) and 2 month(s) ago. Patient History: Menarche at age 10. First Full-Term at age 19. Left ovary removed at age 47. Right ovary removed at age 47. Hysterectomy at age 47. Postmenopausal. Benign Core Biopsy on the right side. 09/09/1997, Benign Stereotactic Core Biopsy on the right side. Risk Values: Fátima 5 year model risk: 2.6%. NCI Lifetime model risk: 7.0%. Prior Study Comparison: 06/05/2019 Bilateral Screening Mammogram, [facility]. 03/15/2020 Right Diagnostic Mammogram, [facility]. 07/16/2020 Bilateral Screening Mammogram, [facility]. Tissue Density: There are scattered fibroglandular densities. Findings: Analyzed By CAD. Nodularity is within the upper outer mid right breast. A prior core markers within the posterior right breast. No significant interval changes are evident. No suspicious groups of microcalcifications, spiculated or lobular masses, Architectural distortion or other secondary signs of malignancy are mammographically apparent. Overall Assessment: Benign, BI-RAD 2 Management: Screening Mammogram of both breasts in 1 year. A negative mammogram report should not preclude additional follow up of suspicious palpable abnormalities. Patient should continue monthly self breast exam. A clinical breast exam by your physician is recommended on an annual basis and results should be correlated with mammographic findings. Electronically signed and approved by: Kip Garces D.O. Radiologis
== END | disposition home or self-care (01) ==
LOC: RADMAMWWP 14:11
PROVIDERS: ATTEND Internal Medicine
DX: Z12.31 Encounter for screening mammogram for malignant neoplasm of breast (principal); Z78.0 Asymptomatic menopausal state
CPT/HCPCS: 77063; 77067

== ENCOUNTER 2021-10-19 11:51 | Inpatient (IN) | payer MEDICARE, OTHER ==
[2021-10-19 12:35] LABS: Basophils # (A) 0.1 k/uL (0-0.2); Basophils % (A) 1 %; Eosinophils # (A) 0.1 k/uL (0-0.7); Eosinophils % (A) 2 %; HCT 41.2 % (34.0-46.0); HGB 13.3 gm/dL (11.4-16.0); Lymphocytes # (A) 1.3 k/uL (1.0-4.8); Lymphocytes % (A) 33 %; MCH 29.4 pg (25.0-35.0); MCHC 32.2 g/dL (31.0-37.0); MCV 91.4 fL (80.0-100.0); Mean Platelet Volume 8.8; Monocytes # (A) 0.3 k/uL (0-1.0); Monocytes % (A) 8 %; Neutrophils % (A) 52 %; Platelet Count 178 k/uL (150-450); RBC 4.51 m/uL (3.80-5.40); RDW 12.7 % (11.5-15.5); WBC 3.9 k/uL (3.8-10.6)
[2021-10-19 12:52] LABS: ALT 20 U/L (4-34); AST 28 U/L (14-36); African American GFR (CKD) >90 (>60 ml/min/1.73 sqM); Albumin 4.4 g/dL (3.5-5.0); Alkaline Phosphatase 71 U/L (38-126); Anion Gap 9 mmol/L; Blood Urea Nitrogen 15 mg/dL (7-17); Calcium 9.9 mg/dL (8.4-10.2); Carbon Dioxide 28 mmol/L (22-30); Chloride 102 mmol/L (98-107); Glucose 136 mg/dL (74-99); Non-African American GFR(CKD) >90 (>60 ml/min/1.73 sqM); Potassium 3.6 mmol/L (3.5-5.1); Sodium 139 mmol/L (137-145); Total Bilirubin 0.7 mg/dL (0.2-1.3); Total Protein 7.1 g/dL (6.3-8.2)
--- NOTE | 2021-10-19 13:50 | XR ---
EXAMINATION TYPE: XR chest 2V DATE OF EXAM: 10/19/2021 COMPARISON: Chest x-ray 07/31/2020 HISTORY: Syncope TECHNIQUE: Frontal and lateral views of the chest are obtained. FINDINGS: There is no focal air space opacity, pleural effusion, or pneumothorax seen. The cardiac silhouette size is within normal limits. Aorta is dense. There is thoracic spondylosis. The osseous structures are intact. IMPRESSION: No acute cardiopulmonary process.
[2021-10-19] MEDS ORDERED: DILTIAZEM DRIP BOLUS FROM BAG 1 MG SOLN IV ONE (15:31)
[2021-10-19] MEDS ORDERED: NALOXONE 0.4 MG/ML 1 ML VIAL IV PRN (15:33)
[2021-10-19] MEDS ORDERED: HEPARIN SODIUM 1,000 UN/ML (10ML VL) IV ONE (15:34)
[2021-10-19] MEDS ORDERED: HEPARIN SODIUM 1,000 UN/ML (10ML VL) IV PRN (15:34)
--- NOTE | 2021-10-19 15:37 | ED ---
General Adult HPI - General Chief complaint: Syncope Stated complaint: Dizzy,SOB,BP high Time Seen by Provider: 10/19/21 15:16 Source: patient, RN notes reviewed, old records reviewed Mode of arrival: wheelchair Limitations: no limitations - History of Present Illness Initial comments: 70-year-old female presenting for evaluation of syncope with associated chest tightness and mild dyspnea. She has noted lower extremity swelling over the past several weeks. She has a prior history of CAD and hypertension. She denies chest pain at the time my evaluation. The episode resulted in a brief loss consciousness and her was able to lower her to the ground. She was pale and diaphoretic. Patient states she feels quite good at the time my evalu ation. No fever or vomiting. - Related Data Home Medications Medication Instructions Recorded Confirmed Aspirin [Adult Low Dose Aspirin EC] 81 mg PO DAILY 07/14/16 07/31/20 carvediloL [Coreg] 6.25 mg PO BID 07/14/16 07/31/20 Desloratadine 5 mg PO DAILY 07/31/20 07/31/20 Ergocalciferol [Vitamin D2 (1250 1,250 mcg PO WE 07/31/20 07/31/20 Mcg = 04567 Iu)] Fexofenadine HCl [[place] Allergy] 180 mg PO DAILY 07/31/20 07/31/20 Ketotifen 0.025% Ophth Soln 1 drop BOTH EYES BID PRN 07/31/20 07/31/20 [Zaditor] Losartan/Hydrochlorothiazide 1 tab PO DAILY 07/31/20 07/31/20 [Losartan-Hctz 100-25 mg Tab] Montelukast [Singulair] 10 mg PO HS 07/31/20 07/31/20 Pravastatin Sodium [Pravachol] 20 mg PO DAILY 07/31/20 07/31/20 Tobra-Dexamet 0.3-0.1% Eye Sharla 1 drops BOTH EYES BID 07/31/20 07/31/20 [Tobradex Ophth Susp] cycloSPORINE 0.05% OPHTH SOLN 1 drop BOTH EYES Q12H 07/31/20 07/31/20 [Restasis] Previous Rx's Medication Instructions Recorded Meclizine [Antivert] 25 mg PO TID PRN 7 Days #21 tab 08/04/20 Ticagrelor [Brilinta] 90 mg PO BID #180 tab 08/04/20 Allergies Allergy/AdvReac Type Severity Reaction Status Date / Time Sulfa (Sulfonamide Allergy Unknown Rash/Hives Verified 10/19/21 11:56 Antibiotics) tetracycline Allergy Unknown Verified 10/19/21 11:56 Review of Systems ROS Statement: Those systems with pertinent positive or pertinent negative responses have been documented in the HPI. ROS Other: All systems not noted in ROS Statement are negative. Past Medical History Past Medical History: Hypertension Additional Past Medical History / Comment(s): PSORIASIS OF SCALP. History of Any Multi-Drug Resistant Organisms: None Reported Past Surgical History: Heart Catheterization With Stent, Hysterectomy Past Anesthesia/Blood Transfusion Reactions: No Reported Reaction Past Psychological History: No Psychological Hx Reported Smoking Status: Never smoker Past Alcohol Use History: None Reported Past Drug Use History: None Reported - Past Family History Mother Family Medical History: No Reported History General Exam Limitations: no limitations General appearance: alert, in no apparent distress Head exam: Present: atraumatic, normocephalic Eye exam: Present: normal appearance, PERRL ENT exam: Present: normal exam Neck exam: Present: normal inspection. Absent: tenderness, meningismus Respiratory exam: Present: normal lung sounds bilaterally. Absent: respiratory distress, wheezes Cardiovascular Exam: Present: tachycardia, irregular rhythm GI/Abdominal exam: Present: soft. Absent: distended, tenderness, guarding, rebound Extremities exam: Present: pedal edema Neurological exam: Present: alert, oriented X3, CN II-XII intact. Absent: motor sensory deficit Psychiatric exam: Present: normal affect, normal mood Skin exam: Present: warm, dry, intact. Absent: cyanosis, diaphoretic Course Vital Signs 10/19/21 11:54 Temperature 98 F Pulse Rate 75 Respiratory 16 Rate Blood Pressure 128/91 O2 Sat by Pulse 96 Oximetry EKG Findings - EKG Comments: EKG Findings:: EKG: Atrial fibrillation with RVR, LVH, rate of 121, QRS duration 99, QTC 383 Medical Decision Making - Medical Decision Making 70-year-old female presenting with syncopal episode. Patient found to be in atrial fibrillation without previous history. She has previous laboratory testing and emergency Department is unremarkable. Chest x-ray is clear. Heart rate is fluctuating between 110 and 150. She started on Cardizem and heparin. He'll see her primary care physician Dr. Lion with cardiology on consultation. - Lab Data Result diagrams: 10/19/21 11:58 10/19/21 11:58 Lab Results 10/19/21 10/19/21 10/19/21 Range/Units 11:58 11:58 11:58 WBC 3.9 (3.8-10.6) k/uL RBC 4.51 (3.80-5.40) m/uL Hgb 13.3 (11.4-16.0) gm/dL Hct 41.2 (34.0-46.0) % MCV 91.4 (80.0-100.0) fL MCH 29.4 (25.0-35.0) pg MCHC 32.2 (31.0-37.0) g/dL RDW 12.7 (11.5-15.5) % Plt Count 178 (150-450) k/uL MPV 8.8 Neutrophils % 52 % Lymphocytes % 33 % Monocytes % 8 % Eosinophils % 2 % Basophils % 1 % Neutrophils # 2.0 (1.3-7.7) k/uL Lymphocytes # 1.3 (1.0-4.8) k/uL Monocytes # 0.3 (0-1.0) k/uL Eosinophils # 0.1 (0-0.7) k/uL Basophils # 0.1 (0-0.2) k/uL PT 11.0 (9.0-12.0) sec INR 1.0 (<1.2) APTT 26.0 (22.0-30.0) sec Sodium 139 (137-145) mmol/L Potassium 3.6 (3.5-5.1) mmol/L Chloride 102 (98-107) mmol/L Carbon Dioxide 28 (22-30) mmol/L Anion Gap 9 mmol/L BUN 15 (7-17) mg/dL Creatinine 0.61 (0.52-1.04) mg/dL Est GFR (CKD-EPI)AfAm >90 (>60 ml/min/1.73 sqM) Est GFR (CKD-EPI)NonAf >90 (>60 ml/min/1.73 sqM) Glucose 136 H (74-99) mg/dL Calcium 9.9 (8.4-10.2) mg/dL Total Bilirubin 0.7 (0.2-1.3) mg/dL AST 28 (14-36) U/L ALT 20 (4-34) U/L Alkaline Phosphatase 71 (38-126) U/L Troponin I (0.000-0.034) ng/mL Total Protein 7.1 (6.3-8.2) g/dL Albumin 4.4 (3.5-5.0) g/dL 10/19/21 Range/Units 11:58 WBC (3.8-10.6) k/uL RBC (3.80-5.40) m/uL Hgb (11.4-16.0) gm/dL Hct (34.0-46.0) % MCV (80.0-100.0) fL MCH (25.0-35.0) pg MCHC (31.0-37.0) g/dL RDW (11.5-15.5) % Plt Count (150-450) k/uL MPV Neutrophils % % Lymphocytes % % Monocytes % % Eosinophils % % Basophils % % Neutrophils # (1.3-7.7) k/uL Lymphocytes # (1.0-4.8) k/uL Monocytes # (0-1.0) k/uL Eosinophils # (0-0.7) k/uL Basophils # (0-0.2) k/uL PT (9.0-12.0) sec INR (<1.2) APTT (22.0-30.0) sec Sodium (137-145) mmol/L Potassium (3.5-5.1) mmol/L Chloride (98-107) mmol/L Carbon Dioxide (22-30) mmol/L Anion Gap mmol/L BUN (7-17) mg/dL Creatinine (0.52-1.04) mg/dL Est GFR (CKD-EPI)AfAm (>60 ml/min/1.73 sqM) Est GFR (CKD-EPI)NonAf (>60 ml/min/1.73 sqM) Glucose (74-99) mg/dL Calcium (8.4-10.2) mg/dL Total Bilirubin (0.2-1.3) mg/dL AST (14-36) U/L ALT (4-34) U/L Alkaline Phosphatase (38-126) U/L Troponin I <0.012 (0.000-0.034) ng/mL Total Protein (6.3-8.2) g/dL Albumin (3.5-5.0) g/dL Critical Care Time Critical Care Time: Yes Total Critical Care Time: 35 Disposition Clinical Impression: Atrial fibrillation with RVR, Syncope Disposition: ADMITTED IP TO THIS [facility] Condition: Stable Is patient prescribed a controlled substance at d/c from ED?: No Referrals: Urvashi Lion MD [Primary Care Provider] - 1-2 days Time of Disposition: 16:02
[2021-10-19] MEDS ORDERED: HEPARIN SOD,PORK IN 0.45% NACL 25,000 UNIT in 0.45% NACL 1 250ML.BAG IV SCH (15:45)
[2021-10-19] MEDS: DILTIAZEM 125 MG in SODIUM CHLORIDE 0.9% 100 ML IV SCH (16:26)
[2021-10-19] MEDS: carvediloL 6.25 MG TAB PO SCH (19:03)
[2021-10-20 06:17] LABS: Basophils # (A) 0.1 k/uL (0-0.2); Basophils % (A) 1 %; Eosinophils # (A) 0.1 k/uL (0-0.7); Eosinophils % (A) 2 %; HCT 39.7 % (34.0-46.0); Lymphocytes # (A) 1.6 k/uL (1.0-4.8); Lymphocytes % (A) 40 %; MCHC 32.7 g/dL (31.0-37.0); MCV 91.9 fL (80.0-100.0); Mean Platelet Volume 9.7; Monocytes # (A) 0.4 k/uL (0-1.0); Monocytes % (A) 9 %; Neutrophils # (A) 1.9 k/uL (1.3-7.7); Neutrophils % (A) 46 %; Platelet Count 145 k/uL (150-450); RBC 4.32 m/uL (3.80-5.40); RDW 12.5 % (11.5-15.5); WBC 4.1 k/uL (3.8-10.6)
[2021-10-20 06:39] LABS: ALT 18 U/L (4-34); AST 26 U/L (14-36); African American GFR (CKD) >90 (>60 ml/min/1.73 sqM); Albumin 3.9 g/dL (3.5-5.0); Alkaline Phosphatase 57 U/L (38-126); Anion Gap 9 mmol/L; Blood Urea Nitrogen 15 mg/dL (7-17); Calcium 9.1 mg/dL (8.4-10.2); Carbon Dioxide 23 mmol/L (22-30); Chloride 106 mmol/L (98-107); Glucose 110 mg/dL (74-99); Non-African American GFR(CKD) >90 (>60 ml/min/1.73 sqM); Potassium 3.5 mmol/L (3.5-5.1); Sodium 138 mmol/L (137-145); Total Bilirubin 0.7 mg/dL (0.2-1.3); Total Protein 6.3 g/dL (6.3-8.2)
[2021-10-20] MEDS: carvediloL 6.25 MG TAB PO SCH ×2 (06:44→17:21)
[2021-10-20 06:50] LABS: INR 1.1 (<1.2); Prothrombin Time 11.5 sec (9.0-12.0)
[2021-10-20 06:51] LABS: Partial Thromboplastin Time 53.5 sec (22.0-30.0)
[2021-10-20] MEDS: ATORVASTATIN 40 MG TAB PO SCH (09:50)
[2021-10-20] MEDS: CHOLECALCIFEROL 25 MCG (1000 IU) TABLET PO SCH (09:50)
[2021-10-20] MEDS: LOSARTAN-HCTZ 50-12.5 MG 1 EACH TAB PO SCH (09:50)
[2021-10-20] MEDS: LORATADINE 10 MG TAB PO SCH (09:51)
[2021-10-20] MEDS: ASPIRIN 81 MG PO SCH (09:51)
--- NOTE | 2021-10-20 11:11 | P.CRDCN ---
History of Present Illness History of present illness: HISTORY OF PRESENTING ILLNESS This is a pleasant 70-year-old female past medical history significant for coronary artery disease status post PCI proximal LAD, PCI left main into circumflex, overlapping and circumflex stent with additional PCI on 07/2020, hypertension, dyslipidemia, mild mitral regurgitation. She follows in the office with Dr. Gardiner. We have been asked to see in consultation for new onset atrial fibrillation Patient presents to the emergency department with complaints of intermittent chest heaviness, palpitations, generalized weakness. She states yesterday she was not feeling well, felt "weak". She states she also had anterior chest heaviness across her chest. She states that she was walking down the [place] at home and became diaphoretic, felt that she may pass out and her lower her to the ground. She did not lose consciousness. She was noted to be pale and diaphoretic. She was brought to the emergency department for further evaluation. She was found to be in atrial fibrillation with rapid ventricular response. She was started on IV heparin and IV Cardizem drip. She currently is still an atrial fibrillation with better controlled rates. DIAGNOSTICS * EKG reveals atrial fibrillation with rapid ventricular response, heart rate 121 * Telemetry tracings indicate atrial fibrillation and heart rates [id number] * Chest xray no acute cardiopulmonary process * Laboratory reviewed, troponin negative 3, sodium 138, potassium 3.5, BUN 15, syncope in 0.5, WBC 4.1, hemoglobin 13, platelets 145 * Current home medications include rosuvastatin 20 mg daily, losartan/hydrochlorothiazide 17162 mg daily, aspirin 81 mg daily, Coreg to 12.5 mg twice a day * Cardiac catheterization in 07/2020 revealed CAD with iFR abnormal proximal LAD 60-70% stenosis, 60-70% small caliber nondominant RCA stenosis. S/p PCI proximal LAD, Shifting of LAD/ left main plaque after PCI LAD, necessitating PCI left main into circumflex, overlapping circumflex stent with additional. * Most recent echocardiogram 07/2020 revealed EF of 6065 percent, trace to mild mitral regurgitation, moderate concentric LVH REVIEW OF SYSTEMS At the time of my exam: CONSTITUTIONAL: Denies fever or chills. CARDIOVASCULAR: Reports chest pain, shortness of breath, palpitations Denies orthopnea, PND RESPIRATORY: Denies cough. GASTROINTESTINAL: Denies abdominal pain, diarrhea, constipation, nausea or vomiting. MUSCULOSKELETAL: Denies myalgias. NEUROLOGIC: Denies numbness, tingling, headacbe or weakness. ENDOCRINE: Denies fatigue, weight change, polydipsia or polyurina. GENITOURINARY: Denies burning, hematuria or urgency with micturation. HEMATOLOGIC: Denies history of anemia or bleeding. PHYSICAL EXAMINATION Vitals blood pressure 113/81, heart rate 88, afebrile, oxygen saturation 74% on room air CONSTITUTIONAL: No apparent distress. HEENT: Head is normocephalic. Pupils are equal, round. Sclerae anicteric. Mucous membranes of the mouth are moist. No JVD. No carotid bruit. CHEST EXAMINATION: Lungs are clear to auscultation. No chest wall tenderness is noted on palpation or with deep breathing. HEART EXAMINATION: Irregular rate and rhythm. S1, S2 heard. no gallops or rub. ABDOMEN: Soft, nontender. Positive bowel sounds. EXTREMITIES: 2+ peripheral pulses, no lower extremity edema and no calf tenderness. SKIN: Warm, dry NEUROLOGIC EXAMINATION: Patient is awake, alert and oriented x3. ASSESSMENT New Onset paroxysmal atrial fibrillation with rapid ventricular response -[id number] score 4 Symptoms of chest tightness, near syncope, shortness of breath, palpitations likely related to above, acute coronary syndrome ruled out Coronary artery disease status post PCI proximal LAD, PCI left main into circumflex, overlapping and circumflex stent with additional PCI on 07/2020 Hypertension Dyslipidemia Mild mitral regurgitation PLAN Obtain 2D echocardiogram Continue IV Cardizem Drip, likely transition to PO Cardizem tomorrow Transition to PO Eliquis 5mg BID, consult case management for coverage Continue carvedilol, losartan, statin, hydrochlorothiazide Follow up with cardiology appointment after discharge with Dr. Gardiner for extended monitoring of episode frequency to plan further cardioversion plans if indicated Further recommendations based on clinical course Nurse practitioner note has been reviewed by physician. Signing provider agrees with the documented findings, assessment, and plan of care. Past Medical History Past Medical History: Hypertension Additional Past Medical History / Comment(s): PSORIASIS OF SCALP. History of Any Multi-Drug Resistant Organisms: None Reported Past Surgical History: Heart Catheterization With Stent, Hysterectomy Past Anesthesia/Blood Transfusion Reactions: No Reported Reaction Date of Last Stent Placement:: july 2020 Past Psychological History: No Psychological Hx Reported Smoking Status: Never smoker Past Alcohol Use History: None Reported Past Drug Use History: None Reported - Past Family History Mother Family Medical History: No Reported History Medications and Allergies Home Medications Medication Instructions Recorded Confirmed Type Aspirin [Adult Low Dose Aspirin EC] 81 mg PO DAILY 07/14/16 10/19/21 History carvediloL [Coreg] 12.5 mg PO BID 07/14/16 10/19/21 History Fexofenadine HCl [Kamille Allergy] 180 mg PO DAILY 07/31/20 10/19/21 History Losartan/Hydrochlorothiazide 1 tab PO DAILY 07/31/20 10/19/21 History [Losartan-Hctz 100-25 mg Tab] Cholecalciferol [Vitamin D3 (25 50 mcg PO DAILY 10/19/21 10/19/21 History Mcg = 1000 Iu)] Ibuprofen [Motrin] 800 mg PO BID PRN 10/19/21 10/19/21 History Rosuvastatin [Crestor] 20 mg PO DAILY 10/19/21 10/19/21 History Apixaban [Eliquis] 5 mg PO BID #60 tab 10/20/21 Rx Allergies Allergy/AdvReac Type Severity Reaction Status Date / Time Sulfa (Sulfonamide Allergy Unknown Rash/Hives Verified 10/19/21 17:04 Antibiotics) tetracycline Allergy Unknown Verified 10/19/21 17:04 Physical Exam Vitals: Vital Signs Temp Pulse Pulse Resp BP BP Pulse Ox 10/20/21 04:00 97.7 F 88 18 113/59 94 L 10/20/21 00:00 97.9 F 82 18 116/70 93 L 10/19/21 20:00 97.7 F 83 16 126/64 95 10/19/21 18:38 97.8 F 90 16 115/83 95 10/19/21 17:41 104 H 18 123/94 96 10/19/21 17:33 108 H 18 131/111 10/19/21 11:54 98 F 75 16 128/91 96 Intake and Output 10/19/21 10/20/21 10/20/21 22:59 06:59 14:59 Other: # Voids 1 Weight 97.522 kg 98.8 kg Results 10/20/21 05:27 10/20/21 05:27 Cardiac Enzymes 10/19/21 10/19/21 10/19/21 Range/Units 11:58 11:58 16:31 AST 28 (14-36) U/L Troponin I <0.012 <0.012 (0.000-0.034) ng/mL 10/19/21 10/20/21 Range/Units 18:01 05:27 AST 26 (14-36) U/L Troponin I 0.012 (0.000-0.034) ng/mL Coagulation 10/19/21 10/19/21 10/20/21 Range/Units 11:58 22:04 05:27 PT 11.0 11.5 (9.0-12.0) sec APTT 26.0 49.7 H 53.5 H (22.0-30.0) sec CBC 10/19/21 10/20/21 Range/Units 11:58 05:27 WBC 3.9 4.1 (3.8-10.6) k/uL RBC 4.51 4.32 (3.80-5.40) m/uL Hgb 13.3 13.0 (11.4-16.0) gm/dL Hct 41.2 39.7 (34.0-46.0) % Plt Count 178 145 L (150-450) k/uL Comprehensive Metabolic Panel 10/19/21 10/20/21 Range/Units 11:58 05:27 Sodium 139 138 (137-145) mmol/L Potassium 3.6 3.5 (3.5-5.1) mmol/L Chloride 102 106 (98-107) mmol/L Carbon Dioxide 28 23 (22-30) mmol/L BUN 15 15 (7-17) mg/dL Creatinine 0.61 0.57 (0.52-1.04) mg/dL Glucose 136 H 110 H (74-99) mg/dL Calcium 9.9 9.1 (8.4-10.2) mg/dL AST 28 26 (14-36) U/L ALT 20 18 (4-34) U/L Alkaline Phosphatase 71 57 (38-126) U/L Total Protein 7.1 6.3 (6.3-8.2) g/dL Albumin 4.4 3.9 (3.5-5.0) g/dL Current Medications Generic Name Dose Route Start Last Admin Trade Name Freq PRN Reason Stop Dose Admin Aspirin 81 mg 10/20/21 09:00 Aspirin 81 Mg PO DAILY GULSHAN Atorvastatin Calcium 40 mg 10/20/21 09:00 Atorvastatin 40 Mg Tab PO DAILY GULSHAN Carvedilol 12.5 mg 10/19/21 18:30 10/20/21 06:44 Carvedilol 6.25 Mg Tab PO 12.5 mg BID-W/MEALS GULSHAN Administration Cholecalciferol 50 mcg 10/20/21 09:00 Cholecalciferol 25 Mcg (1000 Iu) Tablet PO DAILY [facility] HCTZ/Losartan Potassium 2 each 10/20/21 09:00 Losartan-Hctz 50-12.5 Mg 1 Each Tab PO DAILY [facility] Heparin Sodium (Porcine) 0 unit 10/19/21 15:34 Heparin Sodium 1,000 Un/Ml (10ml Vl) IV PER PROTOCOL PRN Low PTT Protocol Diltiazem HCl 125 mg/ Sodium 125 mls @ 5 mls/hr 10/19/21 16:00 10/19/21 16:26 Chloride IV 5 mg/hr .Q24H GULSHAN 5 mls/hr Administration 5 MG/HR Heparin Sodium/Sodium Chloride 250 mls @ 9.947 mls/hr 10/19/21 15:45 10/19/21 16:26 25,000 unit/ Sodium Chloride IV 10.2 units/kg/hr .Q24H GULSHAN 9.947 mls/hr Administration Protocol 10.2 UNITS/KG/HR Loratadine 10 mg 10/20/21 09:00 Loratadine 10 Mg Tab PO DAILY [facility] Naloxone HCl 0.2 mg 10/19/21 15:33 Naloxone 0.4 Mg/Ml 1 Ml Vial IV Q2M PRN Opioid Reversal Intake and Output 10/19/21 10/20/21 10/20/21 22:59 06:59 14:59 Other: # Voids 1 Weight 97.522 kg 98.8 kg 10/20/21 05:27 10/20/21 05:27
--- NOTE | 2021-10-20 12:44 | P.HPIM ---
History of Present Illness H&P Date: 10/19/21 Olinda Francois, mesfin is a 70-year-old female who presented to [facility] emergency room with a chief complaint of chest tightness and shortness of breath She was evaluated in the emergency room vital examination on presentation revealed a temperature of 98 pulse 75 respiration 16 blood pressure 128/91 pulse ox 96% on room air Laboratory data revealed a white blood count of 3.9 hemoglobin 13.3 platelet count 178 sodium 139 potassium 3.8 chloride 102 CO2 28 BUN 15 creatinine 0.61 troponin level less than 0.012 Testing in the emergency room revealed EKG done in the emergency room revealed atrial fibrillation with rapid ventricular response, patient was started on IV Cardizem drip and IV heparin, she was admitted to telemetry floor for further evaluation and treatment, cardiology consultation was requested. Past medical history is significant for history of hypertension, history of hyperlipidemia, history of coronary artery disease, with previous history of angioplasty and stent placement Past Medical History Past Medical History: Hypertension Additional Past Medical History / Comment(s): PSORIASIS OF SCALP. History of Any Multi-Drug Resistant Organisms: None Reported Past Surgical History: Heart Catheterization With Stent, Hysterectomy Past Anesthesia/Blood Transfusion Reactions: No Reported Reaction Past Psychological History: No Psychological Hx Reported Smoking Status: Never smoker Past Alcohol Use History: None Reported Past Drug Use History: None Reported - Past Family History Mother Family Medical History: No Reported History Medications and Allergies Home Medications Medication Instructions Recorded Confirmed Type Aspirin [Adult Low Dose Aspirin EC] 81 mg PO DAILY 07/14/16 10/19/21 History carvediloL [Coreg] 12.5 mg PO BID 07/14/16 10/19/21 History Fexofenadine HCl [Kamille Allergy] 180 mg PO DAILY 07/31/20 10/19/21 History Losartan/Hydrochlorothiazide 1 tab PO DAILY 07/31/20 10/19/21 History [Losartan-Hctz 100-25 mg Tab] Cholecalciferol [Vitamin D3 (25 50 mcg PO DAILY 10/19/21 10/19/21 History Mcg = 1000 Iu)] Ibuprofen [Motrin] 800 mg PO BID PRN 10/19/21 10/19/21 History Rosuvastatin [Crestor] 20 mg PO DAILY 10/19/21 10/19/21 History Apixaban [Eliquis] 5 mg PO BID #60 tab 10/20/21 Rx Allergies Allergy/AdvReac Type Severity Reaction Status Date / Time Sulfa (Sulfonamide Allergy Unknown Rash/Hives Verified 10/19/21 17:04 Antibiotics) tetracycline Allergy Unknown Verified 10/19/21 17:04 Physical Exam Vitals: Vital Signs Temp Pulse Resp BP Pulse Ox 10/19/21 11:54 98 F 75 16 128/91 96 Intake and Output 10/19/21 10/19/21 10/19/21 06:59 14:59 22:59 Other: Weight 97.522 kg In general patient is alert and oriented x 3 in no distress HEENT head normocephalic and atraumatic Neck is supple no JVD no goiter no lymphadenopathy no carotid bruit Chest examination is clear to auscultation no crackles no wheezing Cardiac exam reveals irregular heart sounds S1 and S2 no gallops no murmurs Abdomen is soft nontender no organomegaly with normal bowel sounds Extremity exam reveals no edema no cyanosis or clubbing Neurological examination reveals no gross focal deficits Results CBC & Chem 7: 10/20/21 05:27 10/20/21 05:27 Labs: Abnormal Lab Results - Last 24 Hours (Table) 10/19/21 Range/Units 11:58 Glucose 136 H (74-99) mg/dL Assessment and Plan Plan: Atrial fibrillation with rapid ventricular response Chest tightness and shortness of breath, could be related to atrial fibrillation, will check serial EKG and cardiac enzymes to rule out acute cardiac ischemia Underlying history of hypertension Underlying history of hyperlipidemia Underlying history of coronary artery disease with previous history of angioplasty and stent placement Underlying history of psoriasis At this time patient is admitted to telemetry floor she started on IV Cardizem drip and IV heparin Home medications reviewed and reordered Cardiology consult requested Will follow closely
[2021-10-20] MEDS: APIXABAN 5 MG TAB PO SCH ×2 (12:45→20:18)
--- NOTE | 2021-10-20 15:17 | CA ---
Transthoracic Echo Report Name: Olinda Francois Age: 70 Gender: F : 1950 Exam Date: 10/20/2021 08:34 Exam Location: [facility] Ht (in): 64 Wt (lb): 217 Ordering Physician: Evie Palomino Attending/Referring Phys: [employer] Helper Dayna Bauer RDCS Procedure CPT: Indications: new onset A fib, HR controlled Cardiac Hx: Technical Quality: Good Contrast 1: Total Dose (mL): Contrast 2: Total Dose (mL): MEASUREMENTS (Male / Female) Normal Values 2D ECHO LV Diastolic Diameter PLAX 3.6 cm 4.2 - 5.9 / 3.9 - 5.3 cm LV Systolic Diameter PLAX 2.3 cm IVS Diastolic Thickness 1.6 cm 0.6 - 1.0 / 0.6 - 0.9 cm LVPW Diastolic Thickness 1.4 cm 0.6 - 1.0 / 0.6 - 0.9 cm LV Relative Wall Thickness 0.8 RV Internal Dim ED PLAX 3.2 cm LA Systolic Diameter LX 3.6 cm 3.0 - 4.0 / 2.7 - 3.8 cm LA Volume 44.8 cm??? 18 - 58 / 22 - 52 cm??? M-MODE Aortic Root Diameter MM 3.6 cm MV E Point Septal Separation 0.6 cm AV Cusp Separation MM 2.0 cm DOPPLER AV Peak Velocity 119.3 cm/s AV Peak Gradient 5.7 mmHg MV Area PHT 3.4 cm??? MV Deceleration Time 199.7 ms TR Peak Velocity 229.6 cm/s TR Peak Gradient 21.1 mmHg Right Ventricular Systolic Press 25.2 mmHg FINDINGS Left Ventricle Left ventricular ejection fraction is estimated at 50-55 %. Left ventricular cavity size normal. Moderate concentric left ventricular hypertrophy. Right Ventricle Normal right ventricular size. Right ventricular systolic pressure within normal limits. Right Atrium Normal right atrial size. Left Atrium Normal left atrial size. No evidence for an atrial septal defect. Mitral Valve Mitral annular calcification. Mitral valve thickened. Trace to mild mitral regurgitation. Aortic Valve Trileaflet aortic valve. No aortic valve stenosis or regurgitation. Focal thickening of the aortic valve cusps. Tricuspid Valve Mild tricuspid regurgitation. Pulmonic Valve Trace pulmonic regurgitation. Pericardium Normal pericardium. No pericardial effusion. Aorta Normal size aortic root and proximal ascending aorta. CONCLUSIONS Left ventricle hypertrophy with ejection fraction of 50% Patient is tachycardic Calcific aortic valve without significant stenosis Previewed by: Dr. Omer Salmeron MD (Electronically Signed) Final Date: 20 October 2021 15:16
[2021-10-20] MEDS: DILTIAZEM 125 MG in SODIUM CHLORIDE 0.9% 100 ML IV SCH (17:23)
--- NOTE | 2021-10-20 19:17 | P.PN ---
Subjective Progress Note Date: 10/20/21 mesfin Vásquez is a 70-year-old female who presented to [facility] emergency room with a chief complaint of chest tightness and shortness of breath She was evaluated in the emergency room vital examination on presentation revealed a temperature of 98 pulse 75 respiration 16 blood pressure 128/91 pulse ox 96% on room air Laboratory data revealed a white blood count of 3.9 hemoglobin 13.3 platelet count 178 sodium 139 potassium 3.8 chloride 102 CO2 28 BUN 15 creatinine 0.61 troponin level less than 0.012 Testing in the emergency room revealed EKG done in the emergency room revealed atrial fibrillation with rapid ventricular response, patient was started on IV Cardizem drip and IV heparin, she was admitted to telemetry floor for further evaluation and treatment, cardiology consultation was requested. Past medical history is significant for history of hypertension, history of h yperlipidemia, history of coronary artery disease, with previous history of angioplasty and stent placement On 10/20/2021 patient was seen and examined on the telemetry floor she is alert and oriented 3 in no apparent distress, there is no fever or chills no headache or dizziness no chest pain or shortness of breath, no nausea or vomiting no diarrhea and no urinary symptoms. Patient was evaluated by cardiology and echocardiogram ordered, results are still pending, IV heparin discontinued and patient started on oral Eliquis, she remains on IV Cardizem drip. Objective - Vital Signs Vital signs: Vital Signs Temp 97.7 F 10/20/21 04:00 Pulse 57 L 10/20/21 08:00 Resp 16 10/20/21 08:00 BP 113/81 10/20/21 08:00 Pulse Ox 95 10/20/21 08:00 FiO2 Intake & Output 10/19/21 10/20/21 10/20/21 18:59 06:59 18:59 Intake Total 180 Balance 180 Weight 97.522 kg 98.8 kg Intake: Oral 180 Other: # Voids 1 - Exam In general patient is alert and oriented x 3 in no distress HEENT head normocephalic and atraumatic Neck is supple no JVD no goiter no lymphadenopathy no carotid bruit Chest examination is clear to auscultation no crackles no wheezing Cardiac exam reveals irregular heart sounds S1 and S2 no gallops no murmurs Abdomen is soft nontender no organomegaly with normal bowel sounds Extremity exam reveals no edema no cyanosis or clubbing Neurological examination reveals no gross focal deficits - Labs CBC & Chem 7: 10/20/21 05:27 10/20/21 05:27 Labs: Abnormal Lab Results - Last 24 Hours (Table) 10/19/21 10/19/21 10/20/21 Range/Units 11:58 22:04 05:27 Plt Count 145 L (150-450) k/uL APTT 49.7 H (22.0-30.0) sec Glucose 136 H (74-99) mg/dL 10/20/21 10/20/21 Range/Units 05:27 05:27 Plt Count (150-450) k/uL APTT 53.5 H (22.0-30.0) sec Glucose 110 H (74-99) mg/dL Assessment and Plan Plan: Atrial fibrillation with rapid ventricular response Chest tightness and shortness of breath, could be related to atrial fibrillation, will check serial EKG and cardiac enzymes to rule out acute cardiac ischemia Underlying history of hypertension Underlying history of hyperlipidemia Underlying history of coronary artery disease with previous history of luz oplasty and stent placement Underlying history of psoriasis At this time patient is admitted to telemetry floor she started on IV Cardizem drip and IV heparin Home medications reviewed and reordered Cardiology consult requested Will follow closely
[2021-10-21] MEDS: carvediloL 6.25 MG TAB PO SCH (06:36)
[2021-10-21] MEDS: ASPIRIN 81 MG PO SCH (08:49)
[2021-10-21] MEDS: ATORVASTATIN 40 MG TAB PO SCH (08:49)
[2021-10-21] MEDS: APIXABAN 5 MG TAB PO SCH (08:49)
[2021-10-21] MEDS: LORATADINE 10 MG TAB PO SCH (08:49)
[2021-10-21] MEDS: CHOLECALCIFEROL 25 MCG (1000 IU) TABLET PO SCH (08:49)
[2021-10-21] MEDS: LOSARTAN-HCTZ 50-12.5 MG 1 EACH TAB PO SCH (08:51)
[2021-10-21 08:55] VITALS: BP 120/73; PULSE 81; RESP 18; TEMP 97.8
[2021-10-21] MEDS ORDERED: DILTIAZEM CD 240 MG CAP.ER.24H PO SCH (09:30)
--- NOTE | 2021-10-21 10:00 | P.DS ---
Providers Date of admission: 10/19/21 15:34 Expected date of discharge: 10/21/21 Attending physician: Urvashi Lion Consults: 10/19/21 15:33 Consult Physician Routine Consulting Provider: Ivan Gardiner Consult Reason/Comments: syncope, new a fib Do you want consulting provider notified?: Yes Primary care physician: Urvashi Amisha Va Hospital Course: Diagnosis on discharge: Atrial fibrillation with rapid ventricular response Chest tightness and shortness of breath, could be related to atrial fibrillation, will check serial EKG and cardiac enzymes to rule out acute cardiac ischemia Underlying history of hypertension Underlying history of hyperlipidemia Underlying history of coronary artery disease with previous history of angioplasty and stent placement Underlying history of psoriasis Hospital course: Olinda Francois, mesfin is a 70-year-old female who presented to [facility] emergency room with a chief complaint of chest tightness and shortness of breath She was evaluated in the emergency room vital examination on presentation revealed a temperature of 98 pulse 75 respiration 16 blood pressure 128/91 pulse ox 96% on room air Laboratory data revealed a white blood count of 3.9 hemoglobin 13.3 platelet count 178 sodium 139 potassium 3.8 chloride 102 CO2 28 BUN 15 creatinine 0.61 troponin level less than 0.012 Testing in the emergency room revealed EKG done in the emergency room revealed atrial fibrillation with rapid ventricular response, patient was started on IV Cardizem drip and IV heparin, she was admitted to telemetry floor for further evaluation and treatment, cardiology consultation was requested. Past medical history is significant for history of hypertension, history of hyperlipidemia, history of coronary artery disease, with previous history of angioplasty and stent placement On 10/20/2021 patient was seen and examined on the telemetry floor she is alert and oriented 3 in no apparent distress, there is no fever or chills no headache or dizziness no chest pain or shortness of breath, no nausea or vomiting no diarrhea and no urinary symptoms. Patient was evaluated by cardiology and echocardiogram ordered, results are still pending, IV heparin discontinued and patient started on oral Eliquis, she remains on IV Cardizem drip. On 10/21/2021 patient was seen and examined on the medical floor she is alert and oriented 3 in no apparent distress there is no fever or chills no headache or dizziness no chest pain no shortness of breath no cough no nausea or vomiting no abdominal pain no diarrhea and no urinary symptoms. IV heparin and IV Cardizem were discontinued, patient is now maintained on oral Eliquis and oral Cardizem CD240 mg once daily she was evaluated by cardiology and was cleared for discharge. Patient will be discharged to home today she will be followed in our office within 1 week Patient Condition at Discharge: Stable Plan - Discharge Summary Discharge Rx Participant: No New Discharge Prescriptions: New Diltiazem Cd [Cardizem CD] 240 mg PO DAILY cap Apixaban [Eliquis] 5 mg PO BID #60 tab Continue carvediloL [Coreg] 12.5 mg PO BID Aspirin [Adult Low Dose Aspirin EC] 81 mg PO DAILY Rosuvastatin [Crestor] 20 mg PO DAILY Cholecalciferol [Vitamin D3 (25 Mcg = 1000 Iu)] 50 mcg PO DAILY Losartan/Hydrochlorothiazide [Losartan-Hctz 100-25 mg Tab] 1 tab PO DAILY Fexofenadine HCl [Kamille Allergy] 180 mg PO DAILY Discontinued Ibuprofen [Motrin] 800 mg PO BID PRN PRN Reason: Pain Discharge Medication List Aspirin [Adult Low Dose Aspirin EC] 81 mg PO DAILY 07/14/16 [History] carvediloL [Coreg] 12.5 mg PO BID 07/14/16 [History] Fexofenadine HCl [Kamille Allergy] 180 mg PO DAILY 07/31/20 [History] Losartan/Hydrochlorothiazide [Losartan-Hctz 100-25 mg Tab] 1 tab PO DAILY 07/31/20 [History] Cholecalciferol [Vitamin D3 (25 Mcg = 1000 Iu)] 50 mcg PO DAILY 10/19/21 [History] Rosuvastatin [Crestor] 20 mg PO DAILY 10/19/21 [History] Apixaban [Eliquis] 5 mg PO BID #60 tab 10/20/21 [Rx] Diltiazem Cd [Cardizem CD] 240 mg PO DAILY cap 10/21/21 [Rx] Follow up Appointment(s)/Referral(s): Ivan Gardiner DO [STAFF PHYSICIAN] - 11/10/21 9:45 am (SUNDAY) Urvashi Lion MD [Primary Care Provider] - 10/25/21 1:15 pm (SUNDAY) Patient Instructions/Handouts: A-fib (Atrial Fibrillation) (DC)
--- NOTE | 2021-10-21 14:40 | P.PN ---
Subjective This is a pleasant 70-year-old female past medical history significant for coronary artery disease status post PCI proximal LAD, PCI left main into c ircumflex, overlapping and circumflex stent with additional PCI on 07/2020, hypertension, dyslipidemia, mild mitral regurgitation. She follows in the office with Dr. Gardiner. We have been asked to see in consultation for new onset atrial fibrillation Patient presents to the emergency department with complaints of intermittent chest heaviness, palpitations, generalized weakness. She states yesterday she was not feeling well, felt "weak". She states she also had anterior chest heaviness across her chest. She states that she was walking down the [place] at home and became diaphoretic, felt that she may pass out and her lower her to the ground. She did not lose consciousness. She was noted to be pale and diaphoretic. She was brought to the emergency department for further evaluation. She was found to be in atrial fibrillation with rapid ventricular response. She was started on IV heparin and IV Cardizem drip. She currently is still an atrial fibrillation with better controlled rates. DIAGNOSTICS * EKG reveals atrial fibrillation with rapid ventricular response, heart rate 121 * Telemetry tracings indicate atrial fibrillation and heart rates 80s90s * Chest xray no acute cardiopulmonary process * Laboratory reviewed, troponin negative 3, sodium 138, potassium 3.5, BUN 15, syncope in 0.5, WBC 4.1, hemoglobin 13, platelets 145 * Current home medications include rosuvastatin 20 mg daily, losartan/hydrochlorothiazide 83340 mg daily, aspirin 81 mg daily, Coreg to 12.5 mg twice a day * Cardiac catheterization in 07/2020 revealed CAD with iFR abnormal proximal LAD 60-70% stenosis, 60-70% small caliber nondominant RCA stenosis. S/p PCI proximal LAD, Shifting of LAD/ left main plaque after PCI LAD, necessitating PCI left main into circumflex, overlapping circumflex stent with additional. * Most recent echocardiogram 07/2020 revealed EF of 6065 percent, trace to mild mitral regurgitation, moderate concentric LVH 10/21/2021 Patient seen and examined at bedside, no acute distress. She continues to be in atrial fibrillation but her rates are controlled. Blood pressure is stable. She denies any chest pain, shortness of breath, weakness, dizziness, syncope or near-syncope. Echocardiogram revealed an EF of 5055 percent, no significant wall motion abnormalities PHYSICAL EXAMINATION Vitals reviewed CONSTITUTIONAL: No apparent distress. HEENT: Head is normocephalic. Pupils are equal, round. Sclerae anicteric. Mucous membranes of the mouth are moist. No JVD. No carotid bruit. CHEST EXAMINATION: Lungs are clear to auscultation. No chest wall tenderness is noted on palpation or with deep breathing. HEART EXAMINATION: Irregular rate and rhythm. S1, S2 heard. no gallops or rub. ABDOMEN: Soft, nontender. Positive bowel sounds. EXTREMITIES: 2+ peripheral pulses, no lower extremity edema and no calf tenderness. SKIN: Warm, dry NEUROLOGIC EXAMINATION: Patient is awake, alert and oriented x3. ASSESSMENT New Onset paroxysmal atrial fibrillation with rapid ventricular response -[id number] score 4 Symptoms of chest tightness, near syncope, shortness of breath, palpitations likely related to above, acute coronary syndrome ruled out Coronary artery disease status post PCI proximal LAD, PCI left main into circumflex, overlapping and circumflex stent with additional PCI on 07/2020 Hypertension Dyslipidemia Mild mitral regurgitation PLAN Transition to Cardizem PO Eliquis 5mg BID Continue carvedilol, losartan, statin, hydrochlorothiazide Patient is stable to be discharged home Follow up with cardiology appointment after discharge with Dr. Gardiner for extended monitoring of episode frequency to plan further cardioversion plans if indicated Nurse practitioner note has been reviewed by physician. Signing provider agrees with the documented findings, assessment, and plan of care. Objective - Vital Signs Vital signs: Vital Signs Temp 97.8 F 10/21/21 08:54 Pulse 81 10/21/21 08:54 Resp 18 10/21/21 08:54 BP 120/73 10/21/21 08:54 Pulse Ox 94 L 10/21/21 08:54 FiO2 Intake & Output 10/20/21 10/21/21 10/21/21 18:59 06:59 18:59 Intake Total 704.75 300 380.75 Balance 704.75 300 380.75 Intake: Intake, IV Titration 164.75 80.75 Amount Diltiazem 125 mg In 164.75 80.75 Sodium Chloride 0.9% 100 ml @ 5 MG/HR 5 mls/hr IV .Q24H GULSHAN Rx#:[id number] Oral 540 300 300 Other: # Voids 2 2 # Bowel Movements 1 - Labs CBC & Chem 7: 10/20/21 05:27 10/20/21 05:27
== END 2021-10-21 10:58 | disposition home or self-care (01) | DRG 310 ==
LOC: EC 11:51 → 3SCARD 15:34
PROVIDERS: ADMIT Internal Medicine; ATTEND Internal Medicine
DX: I48.0 Paroxysmal atrial fibrillation (principal); E78.5 Hyperlipidemia, unspecified; Z28.310 Unvaccinated for COVID-19; I10 Essential (primary) hypertension; I34.0 Nonrheumatic mitral (valve) insufficiency; I25.10 Atherosclerotic heart disease of native coronary artery without angina pectoris; L40.9 Psoriasis, unspecified; Z79.82 Long term (current) use of aspirin; Z79.899 Other long term (current) drug therapy; Z88.1 Allergy status to other antibiotic agents; Z88.2 Allergy status to sulfonamides; Z95.5 Presence of coronary angioplasty implant and graft; Z90.710 Acquired absence of both cervix and uterus
CPT/HCPCS: 36415; 71046; 80053; 84443; 84484; 85025; 85610; 85730; 93005; 93306; 96365; 96368; 99291

== ENCOUNTER 2021-11-22 07:39 | Observation (INO) | payer MEDICARE, OTHER ==
--- NOTE | 2021-11-22 08:14 | ED ---
General Adult HPI - General Chief complaint: Chest Pain Stated complaint: A-fib Time Seen by Provider: 11/22/21 07:48 Source: patient Mode of arrival: ambulatory Limitations: no limitations - History of Present Illness Initial comments: Dictation was produced using [email or web address] dictation software. please excuse any grammatical, word or spelling errors. Chief Complaint: Patient is 70-year-old female with recently diagnosed atrial fibrillation presents to the ER for chest pain History of Present Illness: And 1-year-old female she was recently diagnosed with atrial fibrillation. She was started on a course of anticoagulation medications and beta blockers. Patient is scheduled to have cardioversion on . Over the last 24-48 hours patient has been experiencing left-sided chest pain. She states it feels like a ache in her left anterior chest. Patient reports that she has extensive history of coronary artery disease. Liliam ent had a cardiac cath performed in July 2020 that showed blockages in multiple vessels. Patient denies shortness of breath. She also reports swelling in her lower extremities. Patient states the pain is rated at a 6 on a 0-10 scale. No associated diaphoresis nausea or radiation to the extremities The ROS documented in this emergency department record has been reviewed and confirmed by me. Those systems with pertinent positive or negative responses have been documented in the HPI. All other systems are other negative and/or noncontributory. PHYSICAL EXAM: General Impression: Alert and oriented x3, not in acute distress HEENT: Normocephalic atraumatic, extra-ocular movements intact, pupils equal and reactive to light bilaterally, mucous membranes moist. Cardiovascular: Heart regular rate and rhythm Chest: Able to complete full sentences, no retractions, no tachypnea Abdomen: abdomen soft, non-tender, non-distended, no organomegaly Musculoskeletal: Pulses present and equal in all extremities, no peripheral edema Motor: no focal deficits noted Neurological: CN II-XII grossly intact, no focal motor or sensory deficits noted Skin: Intact with no visualized rashes Psych: Normal affect and mood ED course: 70-year-old well-appearing female presents to the emergency department for atypical chest pain with typical features. Patient has extensive history of coronary artery disease. Vital signs upon arrival shows findings within acceptable limits. EKG does not show any signs of any active ischemia or infarction. Laboratory evaluation obtained. CBC, coag panel, is unremarkable. Troponin is not detected. Chest x-ray shows cardiomegaly without acute pulmonary process. Given patient's age and risk features patient will be admitted observation for cardiac monitoring cardiology consultation. Patient given aspirin. She is agreeable to plan. EKG interpretation: Ventricular rate 52, bradycardia,. Interval to 15, care sating 90, QTC 375.. No SC prolongation, no QTC prolongation, no ST or T-wave changes noted. Overall, this EKG is unremarkable - Related Data Home Medications Medication Instructions Recorded Confirmed Aspirin [Adult Low Dose Aspirin EC] 81 mg PO DAILY 07/14/16 11/22/21 carvediloL [Coreg] 12.5 mg PO BID 07/14/16 11/22/21 Fexofenadine HCl [Kamille Allergy] 180 mg PO DAILY 07/31/20 11/22/21 Rosuvastatin [Crestor] 20 mg PO DAILY 10/19/21 11/22/21 Amiodarone [Cordarone] See Taper PO DIRECTED 11/22/21 11/22/21 Ascorbic Acid [Vitamin C] 1,000 mg PO DAILY 11/22/21 11/22/21 Calcium Carb/Mag Ox/Zinc Sulf 1 tab PO TID 11/22/21 11/22/21 [Hbi-Cpi-Cnsy 334-134-5 mg Tab] Cholecalciferol [Vitamin D3 (125 125 mcg PO DAILY 11/22/21 11/22/21 Mcg = 5000 Iu)] Clopidogrel [Plavix] 75 mg PO DAILY 11/22/21 11/22/21 Furosemide [Lasix] 40 mg PO DAILY 11/22/21 11/22/21 Losartan Potassium [Cozaar] 100 mg PO DAILY 11/22/21 11/22/21 [place]-3/Dha/Epa/Fish Oil [Fish Oil 1 cap PO TID 11/22/21 11/22/21 1,000 mg Softgel] Tobramycin/Dexamethasone [Tobradex 1 drop BOTH EYES BID PRN 11/22/21 11/22/21 Ophth Susp] Vitamin B Complex 1 cap PO DAILY 11/22/21 11/22/21 Previous Rx's Medication Instructions Recorded Apixaban [Eliquis] 5 mg PO BID #60 tab 10/20/21 Diltiazem Cd [Cardizem CD] 240 mg PO DAILY cap 10/21/21 Allergies Allergy/AdvReac Type Severity Reaction Status Date / Time Sulfa (Sulfonamide Allergy Unknown Rash/Hives Verified 11/22/21 09:51 Antibiotics) tetracycline Allergy Unknown Verified 11/22/21 09:51 Review of Systems ROS Statement: Those systems with pertinent positive or pertinent negative responses have been documented in the HPI. ROS Other: All systems not noted in ROS Statement are negative. Past Medical History Past Medical History: Atrial Fibrillation, Hypertension Additional Past Medical History / Comment(s): PSORIASIS OF SCALP. History of Any Multi-Drug Resistant Organisms: None Reported Past Surgical History: Heart Catheterization With Stent, Hysterectomy Past Anesthesia/Blood Transfusion Reactions: No Reported Reaction Date of Last Stent Placement:: july 2020 Past Psychological History: No Psychological Hx Reported Smoking Status: Never smoker Past Alcohol Use History: None Reported Past Drug Use History: None Reported - Past Family History Mother Family Medical History: No Reported History General Exam Limitations: no limitations Course Vital Signs 11/22/21 07:44 Temperature 97.7 F Pulse Rate 57 L Respiratory 20 Rate Blood Pressure 138/68 O2 Sat by Pulse 96 Oximetry Medical Decision Making - Lab Data Result diagrams: 11/22/21 08:30 11/22/21 08:30 Lab Results 11/22/21 11/22/21 11/22/21 Range/Units 08:30 08:30 08:30 WBC 5.0 (3.8-10.6) k/uL RBC 4.09 (3.80-5.40) m/uL Hgb 11.9 (11.4-16.0) gm/dL Hct 37.6 (34.0-46.0) % MCV 91.8 (80.0-100.0) fL MCH 29.1 (25.0-35.0) pg MCHC 31.7 (31.0-37.0) g/dL RDW 13.2 (11.5-15.5) % Plt Count 135 L (150-450) k/uL MPV 8.9 Neutrophils % 60 % Lymphocytes % 27 % Monocytes % 8 % Eosinophils % 2 % Basophils % 1 % Neutrophils # 3.0 (1.3-7.7) k/uL Lymphocytes # 1.4 (1.0-4.8) k/uL Monocytes # 0.4 (0-1.0) k/uL Eosinophils # 0.1 (0-0.7) k/uL Basophils # 0.0 (0-0.2) k/uL PT 11.4 (9.0-12.0) sec INR 1.1 (<1.2) APTT 26.2 (22.0-30.0) sec Sodium 143 (137-145) mmol/L Potassium 3.6 (3.5-5.1) mmol/L Chloride 103 (98-107) mmol/L Carbon Dioxide 29 (22-30) mmol/L Anion Gap 11 mmol/L BUN 26 H (7-17) mg/dL Creatinine 0.73 (0.52-1.04) mg/dL Est GFR (CKD-EPI)AfAm >90 (>60 ml/min/1.73 sqM) Est GFR (CKD-EPI)NonAf 83 (>60 ml/min/1.73 sqM) Glucose 108 H (74-99) mg/dL Calcium 9.0 (8.4-10.2) mg/dL Magnesium 1.9 (1.6-2.3) mg/dL Total Bilirubin 0.4 (0.2-1.3) mg/dL AST 29 (14-36) U/L ALT 24 (4-34) U/L Alkaline Phosphatase 73 (38-126) U/L Troponin I (0.000-0.034) ng/mL NT-Pro-B Natriuret Pep pg/mL Total Protein 6.9 (6.3-8.2) g/dL Albumin 4.3 (3.5-5.0) g/dL 11/22/21 11/22/21 Range/Units 08:30 08:30 WBC (3.8-10.6) k/uL RBC (3.80-5.40) m/uL Hgb (11.4-16.0) gm/dL Hct (34.0-46.0) % MCV (80.0-100.0) fL MCH (25.0-35.0) pg MCHC (31.0-37.0) g/dL RDW (11.5-15.5) % Plt Count (150-450) k/uL MPV Neutrophils % % Lymphocytes % % Monocytes % % Eosinophils % % Basophils % % Neutrophils # (1.3-7.7) k/uL Lymphocytes # (1.0-4.8) k/uL Monocytes # (0-1.0) k/uL Eosinophils # (0-0.7) k/uL Basophils # (0-0.2) k/uL PT (9.0-12.0) sec INR (<1.2) APTT (22.0-30.0) sec Sodium (137-145) mmol/L Potassium (3.5-5.1) mmol/L Chloride (98-107) mmol/L Carbon Dioxide (22-30) mmol/L Anion Gap mmol/L BUN (7-17) mg/dL Creatinine (0.52-1.04) mg/dL Est GFR (CKD-EPI)AfAm (>60 ml/min/1.73 sqM) Est GFR (CKD-EPI)NonAf (>60 ml/min/1.73 sqM) Glucose (74-99) mg/dL Calcium (8.4-10.2) mg/dL Magnesium (1.6-2.3) mg/dL Total Bilirubin (0.2-1.3) mg/dL AST (14-36) U/L ALT (4-34) U/L Alkaline Phosphatase (38-126) U/L Troponin I <0.012 (0.000-0.034) ng/mL NT-Pro-B Natriuret Pep 594 pg/mL Total Protein (6.3-8.2) g/dL Albumin (3.5-5.0) g/dL Disposition Clinical Impression: Chest pain Disposition: ADMITTED IP TO THIS [facility] Condition: Fair Referrals: Urvashi Lion MD [Primary Care Provider] - 1-2 days Decision Time: 10:52
[2021-11-22 08:47] LABS: Basophils % (A) 1 %; Eosinophils # (A) 0.1 k/uL (0-0.7); Eosinophils % (A) 2 %; HCT 37.6 % (34.0-46.0); HGB 11.9 gm/dL (11.4-16.0); Lymphocytes # (A) 1.4 k/uL (1.0-4.8); Lymphocytes % (A) 27 %; MCH 29.1 pg (25.0-35.0); MCHC 31.7 g/dL (31.0-37.0); MCV 91.8 fL (80.0-100.0); Mean Platelet Volume 8.9; Monocytes # (A) 0.4 k/uL (0-1.0); Monocytes % (A) 8 %; Neutrophils % (A) 60 %; Platelet Count 135 k/uL (150-450); RBC 4.09 m/uL (3.80-5.40); RDW 13.2 % (11.5-15.5)
--- NOTE | 2021-11-22 08:59 | XR ---
EXAMINATION TYPE: XR chest 1V portable DATE OF EXAM: 11/22/2021 COMPARISON: Chest x-ray October 19, 2021 HISTORY: Chest pain. TECHNIQUE: Single portable frontal view of the chest is obtained. FINDINGS: There is no suspicious focal air space opacity, pleural effusion, or pneumothorax seen. T he cardiac silhouette size remains enlarged. The osseous structures are intact. IMPRESSION: Cardiomegaly without acute pulmonary process. No significant change from prior.
[2021-11-22 09:06] LABS: ALT 24 U/L (4-34); AST 29 U/L (14-36); African American GFR (CKD) >90 (>60 ml/min/1.73 sqM); Albumin 4.3 g/dL (3.5-5.0); Alkaline Phosphatase 73 U/L (38-126); Anion Gap 11 mmol/L; Blood Urea Nitrogen 26 mg/dL (7-17); Carbon Dioxide 29 mmol/L (22-30); Chloride 103 mmol/L (98-107); Glucose 108 mg/dL (74-99); Magnesium 1.9 mg/dL (1.6-2.3); Non-African American GFR(CKD) 83 (>60 ml/min/1.73 sqM); Potassium 3.6 mmol/L (3.5-5.1); Sodium 143 mmol/L (137-145); Total Bilirubin 0.4 mg/dL (0.2-1.3); Total Protein 6.9 g/dL (6.3-8.2)
[2021-11-22 09:20] LABS: INR 1.1 (<1.2); Partial Thromboplastin Time 26.2 sec (22.0-30.0); Prothrombin Time 11.4 sec (9.0-12.0)
[2021-11-22] MEDS ORDERED: ASPIRIN 81 MG PO STA (10:51)
[2021-11-23] MEDS: NITROGLYCERIN OINT 1 INCH/GM PACKET TOPICAL SCH ×3 (01:26→05:06)
[2021-11-23 01:35] VITALS: TEMP 97.8
[2021-11-23] MEDS ORDERED: carvediloL 6.25 MG TAB PO SCH ×2 (08:30→16:00)
[2021-11-23] MEDS ORDERED: LOSARTAN 50 MG TAB PO SCH (09:00)
[2021-11-23] MEDS ORDERED: FUROSEMIDE 40 MG TAB PO SCH (09:00)
[2021-11-23] MEDS ORDERED: ATORVASTATIN 40 MG TAB PO SCH (09:00)
[2021-11-23] MEDS ORDERED: CLOPIDOGREL 75 MG TAB PO SCH (09:00)
[2021-11-23] MEDS ORDERED: metOLazone 2.5 MG TAB PO SCH (09:00)
[2021-11-23] MEDS ORDERED: ASPIRIN 325 MG TAB PO SCH ×2 (09:00)
[2021-11-23] MEDS ORDERED: APIXABAN 5 MG TAB PO SCH (09:00)
[2021-11-23] MEDS ORDERED: AMIODARONE 200 MG TAB PO SCH ×3 (09:00→16:00)
[2021-11-23] MEDS ORDERED: DILTIAZEM CD 240 MG CAP.ER.24H PO SCH (09:00)
--- NOTE | 2021-11-23 09:03 | P.CRDCN ---
History of Present Illness History of present illness: This is a pleasant 70-year-old female past medical history significant for persistent atrial fibrillation on Eliquis, coronary artery disease status post PCI proximal LAD, PCI left main into circumflex, overlapping and circumflex stent with additional PCI on 07/2020, hypertension, dyslipidemia, mild mitral regurgitation. She follows in the office with Dr. Gardiner. We have been asked to see in consultation for chest pain. Patient presents to the emergency department with complaints of bilateral lower extremity edema. She was recently in the hospital in 10/20/21 with new diagnosis of A fib with RVR. Her heart rates were better controlled she was discharged home. She followed up with Dr. Gardiner in the office, at that time patient had episodes of chest tightness, shortness of breath, continued to be in atrial fibrillation with mild RVR. She also had increased shortness of breath and lower extremity edema and her Lasix was increased to 40mg Daily. Plan for patient to undergo TEJINDER/cardioversion on 11/24/21. She continued to have worsening LE edema. She presents to the ER main co mplaint of LE edema. She denies any chest pain, shortness of breath, orthopnea, PND, palpitations, lightheadedness, or dizziness. She presented to the ER in sinus rhythm. DIAGNOSTICS * EKG reveals sinus bradycardia, first-degree AV block, heart rate 52. * Telemetry tracings indicate sinus mechanism HR high 40s-60s * Chest xray no acute cardiopulmonary process * Laboratory reviewed, troponin negative 3, WBC 5.0, hemoglobin 11.9, platelets 135, sodium 143, potassium 3.6, BUN 26, serum creatinine 0.7, magnesium 1.9, proBNP 594 * Current home medications include Lasix 40 mg daily, losartan 100 mg daily, amiodarone 200 mg twice a day, aspirin 80 mg daily, carvedilol 12.5 mg twice a day, Eliquis 5 mg twice a day, Plavix 70 mg daily, rosuvastatin 20 mg daily, Cardizem 240 mg daily * Cardiac catheterization in 07/2020 revealed CAD with iFR abnormal proximal LAD 60-70% stenosis, 60-70% small caliber nondominant RCA stenosis. S/p PCI proximal LAD, Shifting of LAD/ left main plaque after PCI LAD, necessitating PCI left main into circumflex, overlapping circumflex stent with additional. * Most recent echocardiogram 10/20/2021 revealed EF of 50-55%, trace to mild mitral regurgitation REVIEW OF SYSTEMS At the time of my exam: CONSTITUTIONAL: Denies fever or chills. CARDIOVASCULAR: +BLE edema Denies chest pain, shortness of breath, palpitations Denies orthopnea, PND RESPIRATORY: Denies cough. GASTROINTESTINAL: Denies abdominal pain, diarrhea, constipation, nausea or vomiting. MUSCULOSKELETAL: Denies myalgias. NEUROLOGIC: Denies numbness, tingling, headacbe or weakness. ENDOCRINE: Denies fatigue, weight change, polydipsia or polyurina. GENITOURINARY: Denies burning, hematuria or urgency with micturation. HEMATOLOGIC: Denies history of anemia or bleeding. PHYSICAL EXAMINATION Vitals reviewed CONSTITUTIONAL: No apparent distress. HEENT: Head is normocephalic. Pupils are equal, round. Sclerae anicteric. Mucous membranes of the mouth are moist. No JVD. No carotid bruit. CHEST EXAMINATION: Lungs are clear to auscultation. No chest wall tenderness is noted on palpation or with deep breathing. HEART EXAMINATION: Regular rate and rhythm. S1, S2 heard. no gallops or rub. ABDOMEN: Soft, nontender. Positive bowel sounds. EXTREMITIES: 2+ peripheral pulses,2+ bilateral lower extremity edema and no calf tenderness. SKIN: Warm, dry NEUROLOGIC EXAMINATION: Patient is awake, alert and oriented x3. ASSESSMENT Bilateral lower extremity edema, does not appear to be in acute heart failure on exam Chest pain, resolved, acute coronary syndrome has been ruled out. Persistent atrial fibrillation -[id number] score 4, on Eliquis, currently maintaining sinus mechanism Coronary artery disease status post PCI proximal LAD, PCI left main into circumflex, overlapping and circumflex stent with additional PCI on 07/2020 Hypertension Dyslipidemia Mild mitral regurgitation PLAN Metolazone 2.5mg daily for total of 3 days Lasix 40mg daily PO Decrease carvedilol to 6.25mg BID Recommend amiodarone 200mg BID Discontinue cardizem Continue home Eliquis, statin, plavix, and losartan Follow up with Dr. Gardiner next week. No need for cardioversion tomorrow, patient in sinus rhythm. From a cardiology perspective, patient is stable for discharge. Nurse practitioner note has been reviewed by physician. Signing provider agrees with the documented findings, assessment, and plan of care. Past Medical History Past Medical History: Atrial Fibrillation, Hypertension Additional Past Medical History / Comment(s): PSORIASIS OF SCALP. History of Any Multi-Drug Resistant Organisms: None Reported Past Surgical History: Heart Catheterization With Stent, Hysterectomy Past Anesthesia/Blood Transfusion Reactions: No Reported Reaction Date of Last Stent Placement:: july 2020 Past Psychological History: No Psychological Hx Reported Smoking Status: Never smoker Past Alcohol Use History: None Reported Past Drug Use History: None Reported - Past Family History Mother Family Medical History: No Reported History Medications and Allergies Home Medications Medication Instructions Recorded Confirmed Type Aspirin [Adult Low Dose Aspirin EC] 81 mg PO DAILY 07/14/16 11/22/21 History Fexofenadine HCl [Kamille Allergy] 180 mg PO DAILY 07/31/20 11/22/21 History Rosuvastatin [Crestor] 20 mg PO DAILY 10/19/21 11/22/21 History Apixaban [Eliquis] 5 mg PO BID #60 tab 10/20/21 11/22/21 Rx Amiodarone [Cordarone] See Taper PO DIRECTED 11/22/21 11/22/21 History Ascorbic Acid [Vitamin C] 1,000 mg PO DAILY 11/22/21 11/22/21 History Calcium Carb/Mag Ox/Zinc Sulf 1 tab PO TID 11/22/21 11/22/21 History [[id number] 334-134-5 mg Tab] Cholecalciferol [Vitamin D3 (125 125 mcg PO DAILY 11/22/21 11/22/21 History Mcg = 5000 Iu)] Clopidogrel [Plavix] 75 mg PO DAILY 11/22/21 11/22/21 History Furosemide [Lasix] 40 mg PO DAILY 11/22/21 11/22/21 History Losartan Potassium [Cozaar] 100 mg PO DAILY 11/22/21 11/22/21 History [place]-3/Dha/Epa/Fish Oil [Fish Oil 1 cap PO TID 11/22/21 11/22/21 History 1,000 mg Softgel] Tobramycin/Dexamethasone [Tobradex 1 drop BOTH EYES BID PRN 11/22/21 11/22/21 History Ophth Susp] Vitamin B Complex 1 cap PO DAILY 11/22/21 11/22/21 History Amiodarone [Cordarone] 200 mg PO BID tab 11/23/21 Rx carvediloL [Coreg] 6.25 mg PO BID-W/MEALS tab 11/23/21 Rx metOLazone [Zaroxolyn] 2.5 mg PO DAILY 2 Days #2 tab 11/23/21 Rx Allergies Allergy/AdvReac Type Severity Reaction Status Date / Time Sulfa (Sulfonamide Allergy Unknown Rash/Hives Verified 11/22/21 09:51 Antibiotics) tetracycline Allergy Unknown Verified 11/22/21 09:51 Physical Exam Vitals: Vital Signs Temp Pulse Resp BP Pulse Ox 11/23/21 01:34 97.8 F 57 L 19 146/68 11/22/21 11:00 50 L 18 124/66 98 11/22/21 07:44 97.7 F 57 L 20 138/68 96 Results 11/22/21 08:30 11/22/21 08:30 Cardiac Enzymes 11/22/21 11/22/21 11/22/21 Range/Units 08:30 08:30 11:44 AST 29 (14-36) U/L Troponin I <0.012 <0.012 (0.000-0.034) ng/mL 11/22/21 Range/Units 16:45 AST (14-36) U/L Troponin I <0.012 (0.000-0.034) ng/mL Coagulation 11/22/21 Range/Units 08:30 PT 11.4 (9.0-12.0) sec APTT 26.2 (22.0-30.0) sec CBC 11/22/21 Range/Units 08:30 WBC 5.0 (3.8-10.6) k/uL RBC 4.09 (3.80-5.40) m/uL Hgb 11.9 (11.4-16.0) gm/dL Hct 37.6 (34.0-46.0) % Plt Count 135 L (150-450) k/uL Comprehensive Metabolic Panel 11/22/21 Range/Units 08:30 Sodium 143 (137-145) mmol/L Potassium 3.6 (3.5-5.1) mmol/L Chloride 103 (98-107) mmol/L Carbon Dioxide 29 (22-30) mmol/L BUN 26 H (7-17) mg/dL Creatinine 0.73 (0.52-1.04) mg/dL Glucose 108 H (74-99) mg/dL Calcium 9.0 (8.4-10.2) mg/dL AST 29 (14-36) U/L ALT 24 (4-34) U/L Alkaline Phosphatase 73 (38-126) U/L Total Protein 6.9 (6.3-8.2) g/dL Albumin 4.3 (3.5-5.0) g/dL Current Medications Generic Name Dose Route Start Last Admin Trade Name Freq PRN Reason Stop Dose Admin Aspirin 325 mg 11/23/21 09:00 Aspirin 325 Mg Tab PO DAILY [facility] Nitroglycerin 1 inch 11/22/21 12:00 11/23/21 05:06 Nitroglycerin Oint 1 Inch/Gm Packet TOPICAL Not Given Q6HR GULSHAN 11/22/21 08:30 11/22/21 08:30
[2021-11-23 09:27] LABS: HDL Cholesterol 59.6 mg/dL (40.00-60.00)
[2021-11-23 09:38] LABS: Chol/HDL Ratio 2.3 Ratio
[2021-11-23] MEDS ORDERED: TOBRA-DEXAMET 0.3-0.1% OPHTH DROPS 2.5 ML BTL BOTH EYES PRN (10:36)
--- NOTE | 2021-11-23 10:56 | P.HPIM ---
History of Present Illness H&P Date: 11/23/21 Olinda Francois, is a 70-year old female who presented to [facility] emergency room with a chief complaint of chest pain She was evaluated in the emergency room vital examination on presentation revealed a temperature of 97.7 pulse 57 respiration 20 blood pressure 138/68 pulse ox 96% on room air Laboratory data reveals a white blood count of 5.0 hemoglobin 11.9 platelet count 135 BUN 26 creatinine 0.73 troponin level less than 0.012 Testing in the emergency room revealed EKG revealed sinus bradycardia with first-degree AV block chest x-ray revealed evidence of cardiomegaly without acute pulmonary process Patient was admitted to medical floor for further evaluation and treatment. Past medical history is significant for recent diagnosis of atrial fibrillation she was started on anticoagulation and beta glenys recently and was scheduled for cardioversion, patient also has known history of coronary artery disease, history of hypertension and history of hyperlipidemia Past Medical History Past Medical History: Atrial Fibrillation, Hypertension Additional Past Medical History / Comment(s): PSORIASIS OF SCALP. History of Any Multi-Drug Resistant Organisms: None Reported Past Surgical History: Heart Catheterization With Stent, Hysterectomy Past Anesthesia/Blood Transfusion Reactions: No Reported Reaction Date of Last Stent Placement:: july 2020 Past Psychological History: No Psychological Hx Reported Smoking Status: Never smoker Past Alcohol Use History: None Reported Past Drug Use History: None Reported - Past Family History Mother Family Medical History: No Reported History Medications and Allergies Home Medications Medication Instructions Recorded Confirmed Type Aspirin [Adult Low Dose Aspirin EC] 81 mg PO DAILY 07/14/16 11/22/21 History Fexofenadine HCl [Kamille Allergy] 180 mg PO DAILY 07/31/20 11/22/21 History Rosuvastatin [Crestor] 20 mg PO DAILY 10/19/21 11/22/21 History Apixaban [Eliquis] 5 mg PO BID #60 tab 10/20/21 11/22/21 Rx Ascorbic Acid [Vitamin C] 1,000 mg PO DAILY 11/22/21 11/22/21 History Calcium Carb/Mag Ox/Zinc Sulf 1 tab PO TID 11/22/21 11/22/21 History [Rdm-Idd-Gisx 334-134-5 mg Tab] Cholecalciferol [Vitamin D3 (125 125 mcg PO DAILY 11/22/21 11/22/21 History Mcg = 5000 Iu)] Clopidogrel [Plavix] 75 mg PO DAILY 11/22/21 11/22/21 History Furosemide [Lasix] 40 mg PO DAILY 11/22/21 11/22/21 History Losartan Potassium [Cozaar] 100 mg PO DAILY 11/22/21 11/22/21 History [place]-3/Dha/Epa/Fish Oil [Fish Oil 1 cap PO TID 11/22/21 11/22/21 History 1,000 mg Softgel] Vitamin B Complex 1 cap PO DAILY 11/22/21 11/22/21 History Amiodarone [Cordarone] 200 mg PO BID tab 11/23/21 Rx carvediloL [Coreg] 6.25 mg PO BID-W/MEALS tab 11/23/21 Rx metOLazone [Zaroxolyn] 2.5 mg PO DAILY 2 Days #2 tab 11/23/21 Rx Allergies Allergy/AdvReac Type Severity Reaction Status Date / Time Sulfa (Sulfonamide Allergy Unknown Rash/Hives Verified 11/22/21 09:51 Antibiotics) tetracycline Allergy Unknown Verified 11/22/21 09:51 Physical Exam Vitals: Vital Signs Temp Pulse Resp BP Pulse Ox 11/23/21 01:34 97.8 F 57 L 19 146/68 11/22/21 11:00 50 L 18 124/66 98 In general patient is alert and oriented x 3 in no distress HEENT head normocephalic and atraumatic Neck is supple no JVD no goiter no lymphadenopathy no carotid bruit Chest examination is clear to auscultation no crackles no wheezing Cardiac exam reveals regular heart sounds S1 and S2 no gallops no murmurs Abdomen is soft nontender no organomegaly with normal bowel sounds Extremity exam reveals no edema no cyanosis or clubbing Neurological examination reveals no gross focal deficits Results CBC & Chem 7: 11/22/21 08:30 11/22/21 08:30 Assessment and Plan Plan: Episode of chest pain patient was admitted to telemetry floor, cardiology consultation was requested Recent diagnosis of atrial fibrillation Underlying history of hypertension underlying history of hyperlipidemia Recent echocardiogram done in October 2021 revealed left ventricular ejection fraction of 50-55% with moderate concentric LVH At this time patient is admitted to telemetry floor home medications reviewed and reordered cardiology consultation was requested will follow closely
--- NOTE | 2021-11-23 10:59 | P.DS ---
Providers Date of admission: 11/22/21 10:52 Expected date of discharge: 11/23/21 Attending physician: Urvashi Lion Consults: 11/22/21 10:51 Consult Physician Urgent Consulting Provider: Ivan Gardiner Consult Reason/Comments: chest pain Do you want consulting provider notified?: Yes Primary care physician: Urvashi Lion [facility] Course: Diagnosis on discharge: Episode of chest pain patient was admitted to telemetry floor, cardiology consultation was requested Recent diagnosis of atrial fibrillation Underlying history of hypertension underlying history of hyperlipidemia Recent echocardiogram done in October 2021 revealed left ventricular ejection fraction of 50-55% with moderate concentric LVH Hospital course: Olinda Francois, is a 70-year old female who presented to [facility] emergency room with a chief complaint of chest pain She was evaluated in the emergency room vital examination on presentation revealed a temperature of 97.7 pulse 57 respiration 20 blood pressure 138/68 pulse ox 96% on room air Laboratory data reveals a white blood count of 5.0 hemoglobin 11.9 platelet count 135 BUN 26 creatinine 0.73 troponin level less than 0.012 Testing in the emergency room revealed EKG revealed sinus bradycardia with first-degree AV block chest x-ray revealed evidence of cardiomegaly without acute pulmonary process Patient was admitted to medical floor for further evaluation and treatment. Past medical history is significant for recent diagnosis of atrial fibrillation she was started on anticoagulation and beta glenys recently and was scheduled for cardioversion, patient also has known history of coronary artery disease, history of hypertension and history of hyperlipidemia On 9 10/06/2011 patient was seen and examined she is alert and oriented 3 in no apparent distress she had no new episodes of chest pain she was evaluated by cardiology her cardiac medications were adjusted by Dr. Campbell dose of amiodarone was changed to 200 mg twice daily, dose of Coreg was changed to 6.25 mg twice daily and Zaroxolyn 2.5 mg once daily was added to her medication regimen, patient was feeling well she was asking to be discharged home she was cleared by cardiology for discharge 3 troponin levels were normal at less than 0.012. Patient was discharged home she would be followed by cardiology in the next 1-2 weeks she will also be followed in our office in the next 1 week Patient Condition at Discharge: Fair Plan - Discharge Summary New Discharge Prescriptions: New Amiodarone [Cordarone] 200 mg PO BID tab carvediloL [Coreg] 6.25 mg PO BID-W/MEALS tab metOLazone [Zaroxolyn] 2.5 mg PO DAILY 2 Days #2 tab Continue Aspirin [Adult Low Dose Aspirin EC] 81 mg PO DAILY Rosuvastatin [Crestor] 20 mg PO DAILY Vitamin B Complex 1 cap PO DAILY Ascorbic Acid [Vitamin C] 1,000 mg PO DAILY Furosemide [Lasix] 40 mg PO DAILY Fexofenadine HCl [Kamille Allergy] 180 mg PO DAILY Apixaban [Eliquis] 5 mg PO BID #60 tab Calcium Carb/Mag Ox/Zinc Sulf [Vby-Enh-Xxrt 334-134-5 mg Tab] 1 tab PO TID Losartan Potassium [Cozaar] 100 mg PO DAILY [place]-3/Dha/Epa/Fish Oil [Fish Oil 1,000 mg Softgel] 1 cap PO TID Cholecalciferol [Vitamin D3 (125 Mcg = 5000 Iu)] 125 mcg PO DAILY Clopidogrel [Plavix] 75 mg PO DAILY Discontinued carvediloL [Coreg] 12.5 mg PO BID Diltiazem Cd [Cardizem CD] 240 mg PO DAILY cap Tobramycin/Dexamethasone [Tobradex Ophth Susp] 1 drop BOTH EYES BID PRN PRN Reason: Inflammation Amiodarone [Cordarone] See Taper PO DIRECTED Discharge Medication List Aspirin [Adult Low Dose Aspirin EC] 81 mg PO DAILY 07/14/16 [History] Fexofenadine HCl [Kamille Allergy] 180 mg PO DAILY 07/31/20 [History] Rosuvastatin [Crestor] 20 mg PO DAILY 10/19/21 [History] Apixaban [Eliquis] 5 mg PO BID #60 tab 10/20/21 [Rx] Ascorbic Acid [Vitamin C] 1,000 mg PO DAILY 11/22/21 [History] Calcium Carb/Mag Ox/Zinc Sulf [Foy-Ybv-Qlih 334-134-5 mg Tab] 1 tab PO TID 11/22/21 [History] Cholecalciferol [Vitamin D3 (125 Mcg = 5000 Iu)] 125 mcg PO DAILY 11/22/21 [History] Clopidogrel [Plavix] 75 mg PO DAILY 11/22/21 [History] Furosemide [Lasix] 40 mg PO DAILY 11/22/21 [History] Losartan Potassium [Cozaar] 100 mg PO DAILY 11/22/21 [History] [place]-3/Dha/Epa/Fish Oil [Fish Oil 1,000 mg Softgel] 1 cap PO TID 11/22/21 [History] Vitamin B Complex 1 cap PO DAILY 11/22/21 [History] Amiodarone [Cordarone] 200 mg PO BID tab 11/23/21 [Rx] carvediloL [Coreg] 6.25 mg PO BID-W/MEALS tab 11/23/21 [Rx] metOLazone [Zaroxolyn] 2.5 mg PO DAILY 2 Days #2 tab 11/23/21 [Rx] Follow up Appointment(s)/Referral(s): Ivan Gardiner DO [STAFF PHYSICIAN] - 1 Week Urvashi Lion MD [Primary Care Provider] - 1-2 days
[2021-11-23 11:28] VITALS: BP 156/68; PULSE 68; RESP 16
[2021-11-23] MEDS ORDERED: NON FORMULARY DRUG (Omega-3/Dha/Epa/Fish Oil [Fish Oil 1,000 Mg Softgel] 1 EACH Capsule) PO SCH (16:00)
[2021-11-23] MEDS ORDERED: NON FORMULARY DRUG (Calcium Carb/Mag Ox/Zinc Sulf [Cal-Mag-Zinc 334-134-5 Mg Tab] 1 EACH T PO SCH (16:00)
[2021-11-24] MEDS ORDERED: CYANOCOBALAMIN-FA-PYRIDOXINE 1 EACH TAB PO SCH (09:00)
[2021-11-24] MEDS ORDERED: ASPIRIN 81 MG PO SCH (09:00)
[2021-11-24] MEDS ORDERED: CHOLECALCIFEROL 125 MCG (5000 IU) TABLET PO SCH (09:00)
[2021-11-24] MEDS ORDERED: ASCORBIC ACID 500 MG TAB PO SCH (09:00)
[2021-11-24] MEDS ORDERED: LORATADINE 10 MG TAB PO SCH (09:00)
== END 2021-11-23 11:28 | disposition home or self-care (01) ==
LOC: EC 07:39 → 6NMEDSUR 10:52
PROVIDERS: ADMIT Internal Medicine; ATTEND Internal Medicine
DX: R07.89 Other chest pain (principal); R60.0 Localized edema; I25.10 Atherosclerotic heart disease of native coronary artery without angina pectoris; I48.19 Other persistent atrial fibrillation; E78.5 Hyperlipidemia, unspecified; I11.9 Hypertensive heart disease without heart failure; I34.0 Nonrheumatic mitral (valve) insufficiency; I44.0 Atrioventricular block, first degree; R00.1 Bradycardia, unspecified; Z95.5 Presence of coronary angioplasty implant and graft; Z79.01 Long term (current) use of anticoagulants; Z79.02 Long term (current) use of antithrombotics/antiplatelets; Z79.82 Long term (current) use of aspirin; Z79.899 Other long term (current) drug therapy; Z88.1 Allergy status to other antibiotic agents; Z88.2 Allergy status to sulfonamides
CPT/HCPCS: 36415; 93005; 83880; 80061; 80053; 83735; 84484; 85025; 85610; 85730; 83721; 71045; G0378 ×2; 99285

== ENCOUNTER 2022-07-30 21:56 | Observation (INO) | payer MEDICARE, OTHER ==
[2022-07-30] MEDS ORDERED: MECLIZINE 12.5 MG TAB PO STA (22:03)
[2022-07-30] MEDS ORDERED: SODIUM CHLORIDE 0.9% 1,000 ML IV ONE (22:03)
[2022-07-30 22:26] LABS: Basophils % (A) 1 %; Eosinophils # (A) 0.1 k/uL (0-0.7); Eosinophils % (A) 2 %; HCT 37.6 % (34.0-46.0); HGB 12.4 gm/dL (11.4-16.0); Lymphocytes % (A) 33 %; MCH 30.1 pg (25.0-35.0); MCV 91.3 fL (80.0-100.0); Mean Platelet Volume 9.3; Monocytes # (A) 0.5 k/uL (0-1.0); Monocytes % (A) 8 %; Neutrophils # (A) 3.2 k/uL (1.3-7.7); Neutrophils % (A) 53 %; Platelet Count 145 k/uL (150-450); RBC 4.11 m/uL (3.80-5.40); RDW 13.2 % (11.5-15.5); WBC 6.1 k/uL (3.8-10.6)
--- NOTE | 2022-07-30 22:40 | ED ---
General Adult HPI - General Chief complaint: Nausea/Vomiting/Diarrhea Stated complaint: NAUSEA, VOMITING Time Seen by Provider: 07/30/22 22:00 Source: EMS Mode of arrival: EMS Limitations: no limitations - History of Present Illness Initial comments: This is a 71-year-old female with a past medical history including atrial fibrillation, hypertension presents emergency department for vertigo-like symptoms that began 2 hours prior to arrival. The patient stated that she had a normal day throughout the day today when at around 8 PM she experienced room spinning, vomiting and nausea. The patient stated that she has had an issue with vertigo several years ago but stated that when this had occurred previous the, she ended up with 3 cardiac stents. The patient is not on any medication for her lightheadedness currently. The patient on arrival stated that she had continued room spinning but was given Zofran by EMS and stated that her symptoms had improved slightly. The patient denied any fevers or chills as well as any recent upper respiratory infections. The patient denied any other acute pain or complaints at this time. - Related Data Home Medications Medication Instructions Recorded Confirmed Aspirin [Adult Low Dose Aspirin EC] 81 mg PO DAILY 07/14/16 11/22/21 Fexofenadine HCl [Kamille Allergy] 180 mg PO DAILY 07/31/20 11/22/21 Rosuvastatin [Crestor] 20 mg PO DAILY 10/19/21 11/22/21 Ascorbic Acid [Vitamin C] 1,000 mg PO DAILY 11/22/21 11/22/21 Calcium Carb/Mag Ox/Zinc Sulf 1 tab PO TID 11/22/21 11/22/21 [Quu-Drr-Dxis 334-134-5 mg Tab] Cholecalciferol [Vitamin D3 (125 125 mcg PO DAILY 11/22/21 11/22/21 Mcg = 5000 Iu)] Clopidogrel [Plavix] 75 mg PO DAILY 11/22/21 11/22/21 Furosemide [Lasix] 40 mg PO DAILY 11/22/21 11/22/21 Losartan Potassium [Cozaar] 100 mg PO DAILY 11/22/21 11/22/21 [place]-3/Dha/Epa/Fish Oil [Fish Oil 1 cap PO TID 11/22/21 11/22/21 1,000 mg Softgel] Vitamin B Complex 1 cap PO DAILY 11/22/21 11/22/21 Previous Rx's Medication Instructions Recorded Apixaban [Eliquis] 5 mg PO BID #60 tab 10/20/21 Amiodarone [Cordarone] 200 mg PO BID tab 11/23/21 carvediloL [Coreg] 6.25 mg PO BID-W/MEALS tab 11/23/21 metOLazone [Zaroxolyn] 2.5 mg PO DAILY 2 Days #2 tab 11/23/21 Allergies Allergy/AdvReac Type Severity Reaction Status Date / Time Sulfa (Sulfonamide Allergy Unknown Rash/Hives Verified 11/22/21 09:51 Antibiotics) tetracycline Allergy Unknown Verified 11/22/21 09:51 Review of Systems ROS Statement: Those systems with pertinent positive or pertinent negative responses have been documented in the HPI. ROS Other: All systems not noted in ROS Statement are negative. Past Medical History Past Medical History: Atrial Fibrillation, Chest Pain / Angina, Hypertension Additional Past Medical History / Comment(s): PSORIASIS OF SCALP, 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 History of Any Multi-Drug Resistant Organisms: None Reported Past Surgical History: Heart Catheterization With Stent, Hysterectomy Past Anesthesia/Blood Transfusion Reactions: No Reported Reaction Date of Last Stent Placement:: july 2020 Past Psychological History: No Psychological Hx Reported Smoking Status: Never smoker Past Alcohol Use History: None Reported Past Drug Use History: None Reported - Past Family History Mother Family Medical History: No Reported History General Exam Limitations: no limitations General appearance: alert, in no apparent distress, obese Head exam: Present: atraumatic, normocephalic, normal inspection Eye exam: Present: normal appearance, PERRL, nystagmus (Horizontal nystagmus noted in the bilateral eyes) Pupils: Present: normal accommodation ENT exam: Present: normal exam, normal oropharynx, mucous membranes moist Neck exam: Present: normal inspection, full ROM Respiratory exam: Present: normal lung sounds bilaterally Cardiovascular Exam: Present: regular rate, normal rhythm, normal heart sounds GI/Abdominal exam: Present: soft, normal bowel sounds Extremities exam: Present: normal inspection, full ROM Back exam: Present: normal inspection, full ROM Neurological exam: Present: alert, oriented X3, CN II-XII intact Psychiatric exam: Present: normal affect, normal mood Skin exam: Present: warm, dry Course Vital Signs 07/30/22 07/30/22 21:58 22:10 Temperature 97.8 F Pulse Rate 59 L 59 L Respiratory 22 15 Rate Blood Pressure 188/94 188/94 O2 Sat by Pulse 96 96 Oximetry EKG Findings - EKG Comments: EKG Findings:: An EKG was obtained and was interpreted by myself showing a rate of 64, KS interval 185, QRS duration 93 and QTC of 458. This EKG showed a normal sinus rhythm with no ST segment elevation or depression noted. Medical Decision Making - Medical Decision Making Was pt. sent in by a medical professional or institution (, LY, G[employer], urgent care, hospital, or assisted...) When possible be specific @ -No Did you speak to anyone other than the patient for history (EMS, parent, family, police, friend...)? What history was obtained from this source @ -No Did you review nursing and triage notes (agree or disagree)? Why? @ -I reviewed and agree with nursing and triage notes Were old charts reviewed (outside hosp., previous admission, EMS record, old EKG, old radiological studies, urgent care reports/EKG's, assisted records)? Report findings @ -No old charts were reviewed Differential Diagnosis (chest pain, altered mental status, abdominal pain women, abdominal pain men, vaginal bleeding, weakness, fever, dyspnea, syncope, headache, dizziness, GI bleed, back pain, seizure, CVA, palpatations, mental h ealth)? @ -Intracranial hemorrhage, dehydration, a left-sided abnormality, benign positional vertigo EKG interpreted by me (3pts min.). @ -As above X-rays interpreted by me (1pt min.). @ -Chest x-ray was obtained and was interpreted by myself showing cardiomegaly with possible mild congestive heart failure. The patient however did not complain of any cough or shortness of breath or swelling in the legs. CT interpreted by me (1pt min.). @ -CT head was obtained and was interpreted by myself showing age-related changes, no acute intracranial pathology. U/S interpreted by me (1pt. min.). @ -None done What testing was considered but not performed or refused? (CT, X-rays, U/S, labs)? Why? @ -None What meds were considered but not given or refused? Why? @ -None Did you discuss the management of the patient with other professionals (professionals i.e. , PA, G[employer] SHOW HOST, lab, RT, psych nurse, manager social work, outreach director, teacher, school resource officer, spring encaser)? Give summary @ -Yes, admitting physician was contacted regarding placement patient observation. Was smoking cessation discussed for >3mins.? @ -No Was critical care preformed (if so, how long)? @ -No Were there social determinants of health that impacted care today? How? (Homelessness, low income, unemployed, alcoholism, drug addiction, transportation, low edu. Level, literacy, decrease access to med. care, half-way, rehab)? @ -No Was there de-escalation of care discussed even if they declined (Discuss DNR or withdrawal of care, Hospice)? DNR status @ -No What co-morbidities impacted this encounter? (DM, HTN, Smoking, COPD, CAD, Cancer, CVA, ARF, Chemo, Hep., AIDS, mental health diagnosis, sleep apnea, morbid obesity)? @ -History of atrial fibrillation, hypertension Was patient admitted / discharged? Hospital course, mention meds given and ro julia, prescriptions, significant lab abnormalities, going to OR and other pertinent info. @ -The patient was seen and evaluated in the emergency department. On physical exam, the patient did have some mild distress on evaluation secondary to room spinning. Vital signs were stable however. Laboratory workup and imaging was obtained and was all within normal limits. The patient did have horizontal nystagmus noted on physical exam indicating likely vertigo. The patient was g iven Zofran as well as meclizine but on reevaluation stated that she had continued nausea and stated that she did throw up her medication. The patient was given a dose of Compazine and Benadryl emergency department and on reevaluation she stated that she had continued minor symptoms. The patient was offered observation stay to be evaluated by neurology and she did accept this. The patient continued to remain labile and was placed in observation for further workup and evaluation with neurology on consult. Undiagnosed new problem with uncertain prognosis? @ -No Drug Therapy requiring intensive monitoring for toxicity (Heparin, Nitro, I nsulin, Cardizem)? @ -No Were any procedures done? @ -No Diagnosis/symptom? @ -Persistent vertigo Acute, or Chronic, or Acute on Chronic? @ -Acute Uncomplicated (without systemic symptoms) or Complicated (systemic symptoms)? @ -Complicated Side effects of treatment? @ -No Exacerbation, Progression, or Severe Exacerbation? @ -No Poses a threat to life or bodily function? How? (Chest pain, [place], [place], pneumonia, PE, COPD, DKA, ARF, appy, cholecystitis, CVA, Diverticulitis, Homicidal, Suicidal, threat to staff... and all critical care pts) @ -Yes, continued vertigo can lead to possible falls, further damage and p ossible . - Lab Data Result diagrams: 07/30/22 22:05 07/30/22 22:05 Lab Results 07/30/22 07/30/22 07/30/22 Range/Units 22:05 22:05 22:05 WBC 6.1 (3.8-10.6) k/uL RBC 4.11 (3.80-5.40) m/uL Hgb 12.4 (11.4-16.0) gm/dL Hct 37.6 (34.0-46.0) % MCV 91.3 (80.0-100.0) fL MCH 30.1 (25.0-35.0) pg MCHC 33.0 (31.0-37.0) g/dL RDW 13.2 (11.5-15.5) % Plt Count 145 L (150-450) k/uL MPV 9.3 Neutrophils % 53 % Lymphocytes % 33 % Monocytes % 8 % Eosinophils % 2 % Basophils % 1 % Neutrophils # 3.2 (1.3-7.7) k/uL Lymphocytes # 2.0 (1.0-4.8) k/uL Monocytes # 0.5 (0-1.0) k/uL Eosinophils # 0.1 (0-0.7) k/uL Basophils # 0.0 (0-0.2) k/uL Sodium 140 (137-145) mmol/L Potassium 3.5 (3.5-5.1) mmol/L Chloride 103 (98-107) mmol/L Carbon Dioxide 27 (22-30) mmol/L Anion Gap 10 mmol/L BUN 25 H (7-17) mg/dL Creatinine 0.55 (0.52-1.04) mg/dL Est GFR (CKD-EPI)AfAm >90 (>60 ml/min/1.73 sqM) Est GFR (CKD-EPI)NonAf >90 (>60 ml/min/1.73 sqM) Glucose 120 H (74-99) mg/dL Calcium 9.2 (8.4-10.2) mg/dL Magnesium 2.0 (1.6-2.3) mg/dL Total Bilirubin 0.4 (0.2-1.3) mg/dL AST 33 (14-36) U/L ALT 22 (4-34) U/L Alkaline Phosphatase 89 (38-126) U/L Troponin I <0.012 (0.000-0.034) ng/mL NT-Pro-B Natriuret Pep pg/mL Total Protein 7.0 (6.3-8.2) g/dL Albumin 4.2 (3.5-5.0) g/dL Lipase 148 (23-300) U/L Urine Color Urine Appearance (Clear) Urine pH (5.0-8.0) Ur Specific [place] (1.001-1.035) Urine Protein (Negative) Urine Glucose (UA) (Negative) Urine Ketones (Negative) Urine Blood (Negative) Urine Nitrite (Negative) Urine Bilirubin (Negative) Urine Urobilinogen (<2.0) mg/dL Ur Leukocyte Esterase (Negative) Urine RBC (0-5) /hpf Urine WBC (0-5) /hpf Ur Squamous Epith Cells (0-4) /hpf Urine Bacteria (None) /hpf Hyaline Casts (0-2) /lpf Urine Mucus (None) /hpf 07/30/22 07/30/22 Range/Units 22:05 22:51 WBC (3.8-10.6) k/uL RBC (3.80-5.40) m/uL Hgb (11.4-16.0) gm/dL Hct (34.0-46.0) % MCV (80.0-100.0) fL MCH (25.0-35.0) pg MCHC (31.0-37.0) g/dL RDW (11.5-15.5) % Plt Count (150-450) k/uL MPV Neutrophils % % Lymphocytes % % Monocytes % % Eosinophils % % Basophils % % Neutrophils # (1.3-7.7) k/uL Lymphocytes # (1.0-4.8) k/uL Monocytes # (0-1.0) k/uL Eosinophils # (0-0.7) k/uL Basophils # (0-0.2) k/uL Sodium (137-145) mmol/L Potassium (3.5-5.1) mmol/L Chloride (98-107) mmol/L Carbon Dioxide (22-30) mmol/L Anion Gap mmol/L BUN (7-17) mg/dL Creatinine (0.52-1.04) mg/dL Est GFR (CKD-EPI)AfAm (>60 ml/min/1.73 sqM) Est GFR (CKD-EPI)NonAf (>60 ml/min/1.73 sqM) Glucose (74-99) mg/dL Calcium (8.4-10.2) mg/dL Magnesium (1.6-2.3) mg/dL Total Bilirubin (0.2-1.3) mg/dL AST (14-36) U/L ALT (4-34) U/L Alkaline Phosphatase (38-126) U/L Troponin I (0.000-0.034) ng/mL NT-Pro-B Natriuret Pep 169 pg/mL Total Protein (6.3-8.2) g/dL Albumin (3.5-5.0) g/dL Lipase (23-300) U/L Urine Color Yellow Urine Appearance Clear (Clear) Urine pH 7.0 (5.0-8.0) Ur Specific [place] 1.022 (1.001-1.035) Urine Protein Trace H (Negative) Urine Glucose (UA) Negative (Negative) Urine Ketones Negative (Negative) Urine Blood Small H (Negative) Urine Nitrite Negative (Negative) Urine Bilirubin Negative (Negative) Urine Urobilinogen <2.0 (<2.0) mg/dL Ur Leukocyte Esterase Trace H (Negative) Urine RBC 17 H (0-5) /hpf Urine WBC 3 (0-5) /hpf Ur Squamous Epith Cells 1 (0-4) /hpf Urine Bacteria Rare H (None) /hpf Hyaline Casts 7 H (0-2) /lpf Urine Mucus Moderate H (None) /hpf Disposition Clinical Impression: Vertigo Disposition: ADMITTED IP TO THIS HOSP Condition: Stable Is patient prescribed a controlled substance at d/c from ED?: No Referrals: Urvashi Lion MD [Primary Care Provider] - 1-2 days Time of Disposition: 00:05 Decision to Admit Reason: Admit from EC Decision Date: 07/31/22 Decision Time: 00:05
[2022-07-30 22:48] LABS: African American GFR (CKD) >90 (>60 ml/min/1.73 sqM); Albumin 4.2 g/dL (3.5-5.0); Anion Gap 10 mmol/L; Blood Urea Nitrogen 25 mg/dL (7-17); Calcium 9.2 mg/dL (8.4-10.2); Carbon Dioxide 27 mmol/L (22-30); Chloride 103 mmol/L (98-107); Glucose 120 mg/dL (74-99); Non-African American GFR(CKD) >90 (>60 ml/min/1.73 sqM); Potassium 3.5 mmol/L (3.5-5.1); Sodium 140 mmol/L (137-145)
[2022-07-30 22:51] LABS: ALT 22 U/L (4-34); AST 33 U/L (14-36); Alkaline Phosphatase 89 U/L (38-126); Lipase 148 U/L (23-300); Total Bilirubin 0.4 mg/dL (0.2-1.3)
[2022-07-30 23:04] LABS: Appearance,Urine Clear (Clear); Bacteria,Urine Rare /hpf; Bilirubin,Urine Negative (Negative); Blood,Urine Small (Negative); Color,Urine Yellow; Glucose,Urine (UA) Negative (Negative); Hyaline Casts,Urine 7 /lpf (0-2); Ketones,Urine Negative (Negative); Leukocyte Esterase,Urine Trace (Negative); Mucus,Urine Moderate /hpf; Nitrite,Urine Negative (Negative); Protein,Urine Trace (Negative); RBC,Urine 17 /hpf (0-5); Specific Gravity,Urine 1.022 (1.001-1.035); Squamous Epithelial Cell,Urine 1 /hpf (0-4); Urobilinogen,Urine <2.0 mg/dL (<2.0); WBC,Urine 3 /hpf (0-5)
--- NOTE | 2022-07-30 23:10 | CT ---
EXAM: CT Head Without Intravenous Contrast CLINICAL HISTORY: ITS.REASON CT Reason: lightheadedness TECHNIQUE: Axial computed tomography images of the head/brain without intravenous contrast. CTDI is 49.2 mGy and DLP is 1129.4 mGy-cm. This CT exam was performed using one or more of the following dose reduction techniques: automated exposure control, adjustment of the mA and/or kV according to patient size, and/or use of iterative reconstruction technique. COMPARISON: No previous studies. FINDINGS: Brain: Unremarkable. No hemorrhage. No significant white matter disease. No abnormal extra-axial collection is noted. Midline shift: Midline anatomy is unremarkable. Ventricles: Unremarkable. No ventriculomegaly. Bones/joints: Hyperostosis frontalis. No acute fracture. Soft tissues: Unremarkable. Sinuses: Postsurgical changes of the maxillary sinuses. Mastoid air cells: Mastoid air cells are well pneumatized. Other findings: Age appropriate changes. IMPRESSION: 1. Age-related changes. 2. No acute intracranial pathology appeared 3. If there is concern for etiology such as early acute lacunar infarcts, MRI imaging of the brain with diffusion-weighted sequences should be performed.
--- NOTE | 2022-07-31 00:18 | XR ---
EXAM: XR Chest, 2 Views CLINICAL HISTORY: ITS.REASON XR Reason: Dizziness TECHNIQUE: Frontal and lateral views of the chest. COMPARISON: 11/22/2021 chest x-ray. FINDINGS: Lungs: Prominence of central pulmonary vasculature and interstitial prominence. Pleural space: Unremarkable. No pneumothorax. Heart: There is cardiomegaly. Mediastinum: Unremarkable. Bones/joints: Osseous structures and soft tissues are intact. Osteopenia. IMPRESSION: 1. Cardiomegaly. 2. Consider incipient congestive heart failure.
[2022-07-31] MEDS ORDERED: PROCHLORPERAZINE INJ 10 MG/2 ML VIAL IVP STA (00:31)
[2022-07-31] MEDS ORDERED: diphenhydrAMINE 50 MG/ML 1 ML VIAL IVP STA (00:31)
[2022-07-31] MEDS ORDERED: NALOXONE 0.4 MG/ML 1 ML VIAL IV PRN (01:06)
[2022-07-31] MEDS ORDERED: ONDANSETRON 4 MG/2 ML VIAL IVP PRN (01:06)
[2022-07-31] MEDS ORDERED: AZELASTINE 137MCG/SPRAY EA NOSTRIL PRN (12:20)
[2022-07-31] MEDS ORDERED: LOSARTAN 50 MG TAB PO STA (12:34)
[2022-07-31] MEDS ORDERED: FUROSEMIDE 40 MG TAB PO STA (12:38)
[2022-07-31] MEDS ORDERED: APIXABAN 5 MG TAB PO SCH (12:45)
[2022-07-31] MEDS: APIXABAN 5 MG TAB PO SCH ×2 (12:56→20:38)
[2022-07-31] MEDS: LORATADINE 10 MG TAB PO SCH (12:56)
[2022-07-31] MEDS: hydroCHLOROthiazide 12.5 MG CAP PO SCH (12:57)
[2022-07-31] MEDS: CHOLECALCIFEROL 125 MCG (5000 IU) TABLET PO SCH (12:59)
--- NOTE | 2022-07-31 14:56 | P.CNNES ---
History of Present Illness Consult date: 07/31/22 Requesting physician: Simon Romero Reason for Consult: Persistent vertigo History of Present Illness: Patient is a 71-year-old female came to the hospital by ambulance yesterday at 9:56 PM for vertigo. Patient states that last night at 8 PM she was watching a movie when she started feeling dizzy, lightheaded, which she describes as vertigo/spinning and then she threw up and went into cold sweats. Patient denied any slurred speech, facial droop, any focal numbness tingling or weakness or any strokelike symptoms. EMS flow sheet not available in the chart. Patient's blood pressure on arrival was 188/94, pulse rate 59 temperature 97.8. Blood pressure is improved, 140/64. Blood test shows normal CBC, CMP, troponin, lipase, UA. CT head showed no acute process. Age-related changes. Postsurgical changes of the maxillary sinuses. No acute process. I personally reviewed CT head, agree with the findings. Visualized paranasal sinuses are clear. External auditory canals are clear. Patient states that while in the ER, she was given some pills, and her symptoms have improved. At present she still feels dizzy when she stands up. She states that her blood pressure goes up when she stands up and the blood pressure goes down if she is laying down. Patient has been seen by myself previously on 08/02 for headache and vertigo. She had presented with exactly same symptoms, when she developed vertigo without any provoking factor. EKG shows sinus rhythm, no QRS voltage in precordial leads. Chest x-ray revealed cardiomegaly, consider incipient congestive heart failure. Patient underwent testing as mentioned below, and she was discharged, recommended to follow up with an ENT specialist. Patient states that she saw Dr. Colmenares 2 months ago, who has been giving her ALLERGY shots. No recommendation was given for her history of vertigo. Patient states that she has not had any episode of vertigo in these 2 years until last night as mentioned above. Overall, she had 2 episodes of vertigo ever, in July 2020 and now in July 2022. Patient denies any tinnitus, denies hearing loss. Patient does have coronary artery disease, status post 3 stents in the past. She has reported history of atrial fibrillation for which she is on Eliquis for the last 1 year. Patient had a carotid Doppler which revealed atherosclerotic changes with no significant hemodynamic stenosis of the carotid arteries. Nonvisualization of the left vertebral artery. Correlate for vertebral artery occlusion. CTA of head and neck showed no sizable aneurysm or vascular formation. Mild bilateral atherosclerotic plaque of the carotid bifurcation. Patient at that time was taking aspirin and pravastatin 20 mg daily. 2-D echo revealed normal left ventricular size, moderate concentric LVH, EF is 60-65%. Left atrium is moderately dilated. Mild mitral annular calcification. Trace to mild MR. Patient was placed on meclizine 25 mg every 8 hours. ENT consult was recommended as an outpatient. B12 was 612, folate > 24.0. Patient at present is on Crestor 20 mg, Eliquis 5 mg twice a day, Lasix 40 mg, vitamin D, levothyroxine, Coreg 12.5 mg twice a day, cetirizine, losartan/HCTZ. Review of Systems Constitutional: Denies chills, Denies fever Eyes: denies blurred vision, denies diplopia, denies pain, denies loss of peripheral vision, denies loss of vision Ears: deny: decreased hearing, ear discharge, earache, tinnitus Ears, nose, mouth and throat: Denies headache, Denies sore throat Cardiovascular: Denies chest pain, Denies shortness of breath Respiratory: Denies cough, Denies excessive sputum Gastrointestinal: Reports nausea, Denies abdominal pain, Denies diarrhea, Denies vomiting Genitourinary: Denies dysuria, Denies hematuria Musculoskeletal: Denies myalgias, Denies neck pain Integumentary: Denies pruritus, Denies rash Neurological: Reports as per HPI Psychiatric: Denies anxiety, Denies depression Endocrine: Denies fatigue, Denies weight change Past Medical History Past Medical History: Atrial Fibrillation, Chest Pain / Angina, Hypertension Additional Past Medical History / Comment(s): PSORIASIS OF SCALP, 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 History of Any Multi-Drug Resistant Organisms: None Reported Past Surgical History: Heart Catheterization With Stent, Hysterectomy Past Anesthesia/Blood Transfusion Reactions: No Reported Reaction Date of Last Stent Placement:: july 2020 Past Psychological History: No Psychological Hx Reported Smoking Status: Never smoker Past Alcohol Use History: None Reported Past Drug Use History: None Reported - Past Family History Mother Family Medical History: No Reported History Medications and Allergies Home Medications Medication Instructions Recorded Confirmed Type Rosuvastatin [Crestor] 20 mg PO DAILY 10/19/21 07/31/22 History Apixaban [Eliquis] 5 mg PO BID #60 tab 10/20/21 07/31/22 Rx Cholecalciferol [Vitamin D3 (125 125 mcg PO DAILY 11/22/21 07/31/22 History Mcg = 5000 Iu)] Furosemide [Lasix] 40 mg PO DAILY 11/22/21 07/31/22 History Ammonium Lactate Cream [Lac-Hydrin 1 applic TOPICAL BID PRN 07/31/22 07/31/22 History 12% Cream] Azelastine HCl [Astelin Nasal 2 spr EA NOSTRIL BID PRN 07/31/22 07/31/22 History Adrian] Cetirizine HCl [Zyrtec] 10 mg PO DAILY 07/31/22 07/31/22 History Levothyroxine Sodium [Synthroid] 25 mcg PO DAILY 07/31/22 07/31/22 History Losartan/Hydrochlorothiazide 1 tab PO DAILY 07/31/22 07/31/22 History [Hyzaar 100-12.5 Tablet] carvediloL [Coreg] 12.5 mg PO BID 07/31/22 07/31/22 History Allergies Allergy/AdvReac Type Severity Reaction Status Date / Time Sulfa (Sulfonamide Allergy Unknown Rash/Hives Verified 07/31/22 07:30 Antibiotics) sulfamethoxazole Allergy Rash/Hives Verified 07/31/22 07:30 [From Bactrim] on hands tetracycline Allergy Unknown Verified 07/31/22 07:30 trimethoprim [From Bactrim] Allergy Rash/Hives Verified 07/31/22 07:30 on hands Physical Examination - Vital Signs Vital Signs: Vital Signs Temp Pulse Resp BP Pulse Ox 07/31/22 03:00 74 18 140/64 96 07/31/22 01:00 65 16 169/71 95 07/30/22 22:10 59 L 15 188/94 96 07/30/22 21:58 97.8 F 59 L 22 188/94 96 Intake and Output 07/30/22 07/31/22 07/31/22 22:59 06:59 14:59 Other: Weight 99.79 kg 99.79 kg Patient is an elderly female, very pleasant, in no acute distress. Patient is alert awake oriented to time place and person. Speech and language functions are normal. Patient can name and repeat very well. No aphasia or dysarthria. Attention, concentration and fund of knowledge is adequate. On cranial nerve examination, pupils are equal, round and reacting to light, visual ramires are full on confrontation, with no neglect on double simultaneous stimulation. Extraocular muscles are intact. Patient has prominent nystagmus, horizontal only looking to the left side. Face is symmetric, tongue protrudes to the midline. Palatal elevation and sensation normal. Her hearing is normal for routine conversation, but moderately decreased for finger rubbing bilaterally, left much worse than right. Her shoulder shrug normal, facial sensation normal. On muscle strength testing, there is no pronator drift and the strength is normal in arms and legs distally and proximally except hip flexion, which is 5- bilaterally. Deep tendon reflexes are symmetric 1+ all over and plantars downgoing. Sensory to touch is equal with no neglect on double simultaneous stimulation. Cerebellar function showed no ataxia for [id number] testing. No dysdiadochokinesia. No ataxia for [id number] testing on either side. Tone and bulk of muscles normal. Gait deferred.. On general examination, there is no carotid bruit or murmur, S1-S2 audible. Chest is clear on consultation. Abdomen is soft nontender. No organomegaly, bowel sounds present. Peripheral pulses are present. No edema. Results - Laboratory Findings CBC and BMP: 07/30/22 22:05 07/30/22 22:05 Abnormal Lab Findings: Abnormal Labs 07/30/22 07/30/22 07/30/22 22:05 22:05 22:51 Plt Count 145 L BUN 25 H Glucose 120 H Urine Protein Trace H Urine Blood Small H Ur Leukocyte Esterase Trace H Urine RBC 17 H Urine Bacteria Rare H Hyaline Casts 7 H Urine Mucus Moderate H Assessment and Plan Assessment: * Acute vertigo, likely due to peripheral vestibular dysfunction. Patient has nystagmus on the left, and her hearing is decreased for finger rubbing more so on the left, suggestive of weakness of the left vestibular system. Rule out Mnire's disease. * Hypertension * CAD * History of atrial fibrillation, on Eliquis. Plan: * Patient's vertigo is likely related to peripheral vestibular dysfunction, likely left side. Patient had a similar episode in July 2020, and was fine until has a second episode last night. * Suggest patient undergo further vestibular testing. Patient recommended to follow-up with the ENT specialist. * Continue meclizine as needed. * Patient already has all vascular workup performed 2 years ago which was normal. No need to repeat. * Continue Eliquis 5 mg twice a day for stroke prevention. * Neurologically clear for discharge, if patient feels comfortable. Thank you for the consult.
--- NOTE | 2022-07-31 16:07 | US ---
EXAMINATION TYPE: US carotid duplex BILAT DATE OF EXAM: 07/31/2022 COMPARISON: US, [facility] 2020 CLINICAL INDICATION: Female, 71 years old with history of dizziness; Dizziness. TECHNIQUE: Carotid duplex ultrasound examination. Indirect Doppler criteria was utilized. 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 Elevated velocity within left ICA. *Left ICA appears tortuous. IMPRESSION: 1. Atheromatous plaquing with moderate stenosis left internal carotid artery between 50 and 69%. 2. Intimal thickening and some mild plaquing is present on the right less than 50% narrowing. Criteria for Assigning % of Stenosis / Diameter reduction (Estimation based on the indirect measurements of the internal carotid artery velocities (ICA PSV). 1. Normal (no stenosis)=ICA PSV < 125 cm/s: ratio < 2.0: ICA EDV<40 cm/s. 2. Less than 50% stenosis=ICA PSV < 125 cm/s: ratio < 2.0: ICA EDV<40 cm/s. 3. 50 to 69% stenosis=ICA PSV of 125 to 230 cm/s: ration 2.0 ? 4.0: ICA EDV 40-100 cm/s. 4. Greater than 70% stenosis to near occlusion= ICA PSV > 230 cm/s: ratio > 4.0: ICA EDV > 100 cm/s. 5. Near occlusion= ICA PSV velocities may be low or undetectable: variable ratio and ICA EDV. 6. Total occlusion=unable to detect flow.
--- NOTE | 2022-07-31 17:25 | P.HPIM ---
History of Present Illness H&P Date: 07/31/22 Olinda Francois, is a 71-year-old female who presented to [facility] emergency room with a chief complaint of dizziness. Patient stated that she was feeling well all day Sunday she went to [place] she was going about her daily activities without any difficulty, around 8 PM she started having severe dizziness with nausea and vomiting, her called EMS and patient was brought into emergency room. She was evaluated in the emergency room vital examination on presentation revealed a temperature of 97.8 pulse 59 respiration 22 blood pressure 188/94 pulse ox 96% on room air Laboratory data revealed a white blood count of 6.1 hemoglobin 12.4 platelet count 145 sodium 140 potassium 3.5 chloride 103 CO2 27 BUN 25 creatinine 0.55 troponin level less than 0.012 BNP 160 Testing in the emergency room revealed EKG done in the emergency room revealed sinus rhythm with Q wave in anterior leads and poor R-wave progression, chest x- ray done in the emergency room revealed cardiomegaly and central pulmonary venous congestion. Computed tomography scan of the brain without contrast done in the emergency room revealed no acute intracranial abnormality. Patient was admitted to medical floor for further evaluation and treatment Past medical history is significant for coronary artery disease with history of angioplasty and stent placement 2 years ago, history of atrial fibrillation, history of hypertension, history of hyperlipidemia On review of systems patient is alert and oriented 3 in no apparent distress at this time she is complaining still of severe dizziness and unsteady gait, otherwise she denies any complaints there is no fever or chills no headache no chest pain no shortness of breath no cough no nausea or vomiting no abdominal pain no diarrhea no blood in the stools no burning with urination no frequency or urgency and no hematuria Past Medical History Past Medical History: Atrial Fibrillation, Chest Pain / Angina, Hypertension Additional Past Medical History / Comment(s): PSORIASIS OF SCALP, 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 History of Any Multi-Drug Resistant Organisms: None Reported Past Surgical History: Heart Catheterization With Stent, Hysterectomy Past Anesthesia/Blood Transfusion Reactions: No Reported Reaction Date of Last Stent Placement:: july 2020 Past Psychological History: No Psychological Hx Reported Smoking Status: Never smoker Past Alcohol Use History: None Reported Past Drug Use History: None Reported - Past Family History Mother Family Medical History: No Reported History Medications and Allergies Home Medications Medication Instructions Recorded Confirmed Type Rosuvastatin [Crestor] 20 mg PO DAILY 10/19/21 07/31/22 History Apixaban [Eliquis] 5 mg PO BID #60 tab 10/20/21 07/31/22 Rx Cholecalciferol [Vitamin D3 (125 125 mcg PO DAILY 11/22/21 07/31/22 History Mcg = 5000 Iu)] Furosemide [Lasix] 40 mg PO DAILY 11/22/21 07/31/22 History Ammonium Lactate Cream [Lac-Hydrin 1 applic TOPICAL BID PRN 07/31/22 07/31/22 History 12% Cream] Azelastine HCl [Astelin Nasal 2 spr EA NOSTRIL BID PRN 07/31/22 07/31/22 History Choudrant] Cetirizine HCl [Zyrtec] 10 mg PO DAILY 07/31/22 07/31/22 History Levothyroxine Sodium [Synthroid] 25 mcg PO DAILY 07/31/22 07/31/22 History Losartan/Hydrochlorothiazide 1 tab PO DAILY 07/31/22 07/31/22 History [Hyzaar 100-12.5 Tablet] carvediloL [Coreg] 12.5 mg PO BID 07/31/22 07/31/22 History Allergies Allergy/AdvReac Type Severity Reaction Status Date / Time Sulfa (Sulfonamide Allergy Unknown Rash/Hives Verified 07/31/22 07:30 Antibiotics) sulfamethoxazole Allergy Rash/Hives Verified 07/31/22 07:30 [From Bactrim] on hands tetracycline Allergy Unknown Verified 07/31/22 07:30 trimethoprim [From Bactrim] Allergy Rash/Hives Verified 07/31/22 07:30 on hands Physical Exam Vitals: Vital Signs Temp Pulse Pulse Pulse Pulse Resp BP 07/31/22 09:53 97.8 F 59 L 60 60 07/31/22 03:00 74 18 140/64 07/31/22 01:00 65 16 169/71 07/30/22 22:10 59 L 15 188/94 07/30/22 21:58 97.8 F 59 L 22 188/94 BP BP BP Pulse Ox 07/31/22 09:53 158/85 169/89 131/74 95 07/31/22 03:00 96 07/31/22 01:00 95 07/30/22 22:10 96 07/30/22 21:58 96 Intake and Output 07/30/22 07/31/22 07/31/22 22:59 06:59 14:59 Other: # Voids 1 Weight 99.79 kg 99.79 kg In general patient is alert and oriented x 3 in no distress HEENT head normocephalic and atraumatic Neck is supple no JVD no goiter no lymphadenopathy no carotid bruit Chest examination is clear to auscultation no crackles no wheezing Cardiac exam reveals regular heart sounds S1 and S2 no gallops no murmurs Abdomen is soft nontender no organomegaly with normal bowel sounds Extremity exam reveals no edema no cyanosis or clubbing Neurological examination reveals no gross focal deficits Results CBC & Chem 7: 07/30/22 22:05 07/30/22 22:05 Labs: Abnormal Lab Results - Last 24 Hours (Table) 07/30/22 07/30/22 07/30/22 Range/Units 22:05 22:05 22:51 Plt Count 145 L (150-450) k/uL BUN 25 H (7-17) mg/dL Glucose 120 H (74-99) mg/dL Urine Protein Trace H (Negative) Urine Blood Small H (Negative) Ur Leukocyte Esterase Trace H (Negative) Urine RBC 17 H (0-5) /hpf Urine Bacteria Rare H (None) /hpf Hyaline Casts 7 H (0-2) /lpf Urine Mucus Moderate H (None) /hpf Thrombosis Risk Factor Assmnt - Choose All That Apply Any of the Below Risk Factors Present?: Yes Each Factor Represents 1 point: Obesity (BMI >25) Other Risk Factors: Yes Each Risk Factor Represents 3 Points: Age 75 years or older Thrombosis Risk Factor Assessment Total Risk Factor Score: 4 Thrombosis Risk Factor Assessment Level: Moderate Risk Assessment and Plan Plan: Severe dizziness started at 8 PM Sunday, possible in her ear etiology with vertigo, however patient stated that her symptoms are similar to what she had 2 years ago when she was admitted and underwent angioplasty and stent placement, at this time will check echocardiogram and carotid Doppler, consult cardiology, neurology has been consult in the emergency room. Underlying history of hypertension Underlying history of hyperlipidemia Underlying history of coronary artery disease with history of angioplasty and stent placement 2 years ago Underlying history of atrial fibrillation At this time patient is admitted to telemetry floor Home medications reviewed and reordered Echocardiogram and carotid Doppler were ordered Cardiology consult and neurology consult requested For DVT prophylaxis patient is maintained Eliquis Will follow closely
[2022-07-31] MEDS: carvediloL 12.5 MG TAB PO SCH (17:27)
[2022-08-01] MEDS: carvediloL 12.5 MG TAB PO SCH (06:22)
[2022-08-01] MEDS ORDERED: LEVOTHYROXINE 25 MCG TAB PO SCH (06:30)
[2022-08-01] MEDS ORDERED: LOSARTAN 50 MG TAB PO SCH (09:00)
[2022-08-01] MEDS ORDERED: hydroCHLOROthiazide 12.5 MG CAP PO SCH (09:00)
[2022-08-01] MEDS ORDERED: FUROSEMIDE 40 MG TAB PO SCH (09:00)
[2022-08-01] MEDS ORDERED: ATORVASTATIN 40 MG TAB PO SCH (09:00)
[2022-08-01] MEDS: CHOLECALCIFEROL 125 MCG (5000 IU) TABLET PO SCH (09:15)
[2022-08-01] MEDS: APIXABAN 5 MG TAB PO SCH (09:15)
[2022-08-01] MEDS: LORATADINE 10 MG TAB PO SCH (09:15)
[2022-08-01] MEDS: hydroCHLOROthiazide 12.5 MG CAP PO SCH (09:16)
[2022-08-01 09:27] VITALS: BP 159/84; PULSE 54; RESP 16; TEMP 98
--- NOTE | 2022-08-01 09:52 | P.CRDCN ---
History of Present Illness Consult date: 08/01/22 Reason for Consult (text): Dizziness, history of CAD History of present illness: This is a 71-year-old female patient of Dr. Gardiner with past medical history significant for persistent atrial fibrillation on Eliquis, coronary artery disease status post PCI proximal LAD, PCI left main into circumflex, overlapping and circumflex stent with additional PCI on 07/2020, hypertension, dyslipidemia, mild mitral regurgitation. We have been asked to see in consultation for dizziness and history of CAD. Patient presents to the emergency department with complaints of dizziness, lightheadedness with the room spinning and vomiting along with cold sweats. She has been seen by neurology with diagnosis of acute vertigo likely due to peripheral vestibular dysfunction, nystagmus on the left and hearing decreased on the left suggesting weakness of the left vestibular system rule out Mnire's. Patient is feeling better at the time of this evalu ation. She denies having any chest pain. Orthostatics have been negative. Dizziness has resolved. DIAGNOSTICS * EKG reveals sinus rhythm, repeat EKG performed this morning showed no acute changes. * Chest xray cardiomegaly, consider incipient congestive heart failure * Carotid ultrasound revealed plaquing with moderate stenosis of the left internal carotid artery between 50 and 69%, mild plaquing present on the right less than 50% narrowing. * CAT scan of the brain revealed age-related changes. No acute intracranial pathology. * WBC 6.1, hemoglobin 12.4, platelet count 145. INR 1.1. Electrolytes are all normal with potassium of 3.5, magnesium 2.0. Troponin negative 1, proBNP 169. Liver function tests are normal. Blood sugar 120. * Current home medications: Eliquis 5 mg twice daily, Coreg 12.5 mg twice daily, Lasix 40 mg daily, Hyzaar one daily, Crestor 20 mg daily, levothyroxine 25 g daily * Cardiac catheterization in 07/2020 revealed CAD with iFR abnormal proximal LAD 60-70% stenosis, 60-70% small caliber nondominant RCA stenosis. S/p PCI proximal LAD, Shifting of LAD/ left main plaque after PCI LAD, necessitating PCI left main into circumflex, overlapping circumflex stent with additional. * Most recent echocardiogram 10/20/2021 revealed EF of 50-55%, trace to mild mitral regurgitation REVIEW OF SYSTEMS At the time of my exam: CONSTITUTIONAL: Denies fever or chills. CARDIOVASCULAR: No edema Denies chest pain, no shortness of breath, no palpitations Denies orthopnea, no PND RESPIRATORY: Denies cough. GASTROINTESTINAL: Denies abdominal pain, diarrhea, constipation, nausea or vomiting. MUSCULOSKELETAL: Denies myalgias. NEUROLOGIC: Denies numbness, tingling, headacbe or weakness. ENDOCRINE: Denies fatigue, weight change, polydipsia or polyurina. GENITOURINARY: Denies burning, hematuria or urgency with micturation. HEMATOLOGIC: Denies history of anemia or bleeding. PHYSICAL EXAMINATION Vitals reviewed CONSTITUTIONAL: No apparent distress. HEENT: Head is normocephalic. Pupils are equal, round. Sclerae anicteric. Mucous membranes of the mouth are moist. No JVD. No carotid bruit. CHEST EXAMINATION: Lungs are clear to auscultation. HEART EXAMINATION: Regular rate and rhythm. S1, S2 heard. no gallops or rub. ABDOMEN: Soft, nontender. Positive bowel sounds. EXTREMITIES: 2+ peripheral pulses,2+ bilateral lower extremity edema and no calf tenderness. SKIN: Warm, dry NEUROLOGIC EXAMINATION: Patient is awake, alert and oriented x3. ASSESSMENT Dizziness most likely acute vertigo from peripheral vestibular dysfunction No complaints of chest pain Persistent atrial fibrillation -[id number] score 4, on Eliquis, currently maintaining sinus mechanism Coronary artery disease status post PCI proximal LAD, PCI left main into circumflex, overlapping and circumflex stent with additional PCI on 07/2020 Hypertension Dyslipidemia Mild mitral regurgitation PLAN Continue current cardiac medications Patient is cleared from discharge from cardiology perspective. She may follow up with Dr. Gardiner in 3-4 weeks in the office. Cardiology will sign off and follow on an as-needed basis. Please reconsult for any new concerns. Nurse practitioner note has been reviewed by physician. Signing provider agrees with the documented findings, assessment, and plan of care. Past Medical History Past Medical History: Atrial Fibrillation, Chest Pain / Angina, Hypertension Additional Past Medical History / Comment(s): PSORIASIS OF SCALP, 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 History of Any Multi-Drug Resistant Organisms: None Reported Past Surgical History: Heart Catheterization With Stent, Hysterectomy Past Anesthesia/Blood Transfusion Reactions: No Reported Reaction Date of Last Stent Placement:: july 2020 Past Psychological History: No Psychological Hx Reported Smoking Status: Never smoker Past Alcohol Use History: None Reported Past Drug Use History: None Reported - Past Family History Mother Family Medical History: No Reported History Medications and Allergies Home Medications Medication Instructions Recorded Confirmed Type Rosuvastatin [Crestor] 20 mg PO DAILY 10/19/21 07/31/22 History Apixaban [Eliquis] 5 mg PO BID #60 tab 10/20/21 07/31/22 Rx Cholecalciferol [Vitamin D3 (125 125 mcg PO DAILY 11/22/21 07/31/22 History Mcg = 5000 Iu)] Furosemide [Lasix] 40 mg PO DAILY 11/22/21 07/31/22 History Ammonium Lactate Cream [Lac-Hydrin 1 applic TOPICAL BID PRN 07/31/22 07/31/22 History 12% Cream] Azelastine HCl [Astelin Nasal 2 spr EA NOSTRIL BID PRN 07/31/22 07/31/22 History [place]] Cetirizine HCl [Zyrtec] 10 mg PO DAILY 07/31/22 07/31/22 History Levothyroxine Sodium [Synthroid] 25 mcg PO DAILY 07/31/22 07/31/22 History Losartan/Hydrochlorothiazide 1 tab PO DAILY 07/31/22 07/31/22 History [Hyzaar 100-12.5 Tablet] carvediloL [Coreg] 12.5 mg PO BID 07/31/22 07/31/22 History Allergies Allergy/AdvReac Type Severity Reaction Status Date / Time Sulfa (Sulfonamide Allergy Unknown Rash/Hives Verified 07/31/22 07:30 Antibiotics) sulfamethoxazole Allergy Rash/Hives Verified 07/31/22 07:30 [From Bactrim] on hands tetracycline Allergy Unknown Verified 07/31/22 07:30 trimethoprim [From Bactrim] Allergy Rash/Hives Verified 07/31/22 07:30 on hands Physical Exam Vitals: Vital Signs Temp Pulse Pulse Pulse Pulse Resp BP 08/01/22 08:25 98.0 F 54 L 16 08/01/22 06:21 08/01/22 02:40 97.8 F 67 17 07/31/22 19:03 98.0 F 67 17 07/31/22 15:00 98.0 F 64 16 07/31/22 09:53 97.8 F 59 L 60 60 158/85 BP BP BP Pulse Ox 08/01/22 08:25 159/84 95 05/16/23 06:21 176/85 08/01/22 02:40 159/72 91 L 07/31/22 19:03 174/80 94 L 07/31/22 15:00 168/76 95 07/31/22 09:53 169/89 131/74 95 Intake and Output 07/31/22 08/01/22 08/01/22 22:59 06:59 14:59 Other: # Voids 1 2 Results 07/30/22 22:05 07/30/22 22:05 Current Medications Generic Name Dose Route Start Last Admin Trade Name Freq PRN Reason Stop Dose Admin Apixaban 5 mg 07/31/22 12:45 08/01/22 09:15 Apixaban 5 Mg Tab PO 5 mg BID GULSHAN Administration Protocol Atorvastatin Calcium 40 mg 08/01/22 09:00 08/01/22 09:15 Atorvastatin 40 Mg Tab PO 40 mg DAILY GULSHAN Administration Azelastine HCl 2 spray 07/31/22 12:20 Azelastine 137mcg/[place] EA NOSTRIL BID PRN Allergy Symptoms Carvedilol 12.5 mg 07/31/22 17:30 08/01/22 06:22 Carvedilol 12.5 Mg Tab PO 12.5 mg AC-BID GULSHAN Administration Cholecalciferol 125 mcg 07/31/22 12:30 08/01/22 09:15 Cholecalciferol 125 Mcg (5000 Iu) Tablet PO 125 mcg DAILY GULSHAN Administration Furosemide 40 mg 08/01/22 09:00 08/01/22 09:15 Furosemide 40 Mg Tab PO 40 mg DAILY GULSHAN Administration Hydrochlorothiazide 12.5 mg 08/01/22 09:00 08/01/22 09:16 Hydrochlorothiazide 12.5 Mg Cap PO 12.5 mg DAILY GULSHAN Administration Hydrochlorothiazide 12.5 mg 07/31/22 12:45 08/01/22 09:16 Hydrochlorothiazide 12.5 Mg Cap PO Not Given DAILY GULSHAN Levothyroxine Sodium 25 mcg 08/01/22 06:30 08/01/22 06:22 Levothyroxine 25 Mcg Tab PO 25 mcg DAILY@0630 GULSHAN Administration Loratadine 10 mg 07/31/22 12:30 08/01/22 09:15 Loratadine 10 Mg Tab PO 10 mg DAILY GULSHAN Administration Losartan Potassium 100 mg 08/01/22 09:00 08/01/22 09:15 Losartan 50 Mg Tab PO 100 mg DAILY GULSHAN Administration Naloxone HCl 0.2 mg 07/31/22 01:06 Naloxone 0.4 Mg/Ml 1 Ml Vial IV Q2M PRN Opioid Reversal Ondansetron HCl 4 mg 07/31/22 01:06 Ondansetron 4 Mg/2 Ml Vial IVP Q8HR PRN Nausea And Vomiting Intake and Output 07/31/22 08/01/22 08/01/22 22:59 06:59 14:59 Other: # Voids 1 2 07/30/22 22:05 07/30/22 22:05
--- NOTE | 2022-08-06 09:17 | P.DS ---
Providers Date of admission: 07/31/22 01:06 Expected date of discharge: 08/01/22 Attending physician: Urvashi Lion Consults: 07/31/22 01:06 Consult Physician Routine Consulting Provider: Milton Baird Consult Reason/Comments: Persistent vertigo Do you want consulting provider notified?: Yes, Notify in am 07/31/22 12:32 Consult Physician Routine Consulting Provider: Joe Campbell Consult Reason/Comments: dizziness, history of CAD Do you want consulting provider notified?: Yes Primary care physician: Urvashijosiah Lion Lds Hospital Course: Discharge diagnosis Severe dizziness started at 8 PM Sunday, possible in her ear etiology with vertigo, however patient stated that her symptoms are similar to what she had 2 years ago when she was admitted and underwent angioplasty and stent placement, at this time will check echocardiogram and carotid Doppler, consult cardiology, neurology has been consult in the emergency room. Underlying history of hypertension Underlying history of hyperlipidemia Underlying history of coronary artery disease with history of angioplasty and stent placement 2 years ago Underlying history of atrial fibrillation Hospital course Olinda Francois, is a 71-year-old female who presented to [facility] emergency room with a chief complaint of dizziness. Patient stated that she was feeling well all day Sunday she went to [place]ain she was going about her daily activities without any difficulty, around 8 PM she started having severe dizziness with nausea and vomiting, her called EMS and patient was brought into emergency room. She was evaluated in the emergency room vital examination on presentation revealed a temperature of 97.8 pulse 59 respiration 22 blood pressure 188/94 pulse ox 96% on room air Laboratory data revealed a white blood count of 6.1 hemoglobin 12.4 platelet count 145 sodium 140 potassium 3.5 chloride 103 CO2 27 BUN 25 creatinine 0.55 troponin level less than 0.012 BNP 160 Testing in the emergency room revealed EKG done in the emergency room revealed sinus rhythm with Q wave in anterior leads and poor R-wave progression, chest x- ray done in the emergency room revealed cardiomegaly and central pulmonary venous congestion. Computed tomography scan of the brain without contrast done in the emergency room revealed no acute intracranial abnormality. Patient was admitted to medical floor for further evaluation and treatment Past medical history is significant for coronary artery disease with history of angioplasty and stent placement 2 years ago, history of atrial fibrillation, history of hypertension, history of hyperlipidemia On review of systems patient is alert and oriented 3 in no apparent distress at this time she is complaining still of severe dizziness and unsteady gait, otherwise she denies any complaints there is no fever or chills no headache no chest pain no shortness of breath no cough no nausea or vomiting no abdominal pain no diarrhea no blood in the stools no burning with urination no frequency or urgency and no hematuria Patient was evaluated and cleared for d/c from cardiology services. patient d/c on antivert. no further workup inpatient. Patient to follow up with pcp and cardiology services for further management Patient Condition at Discharge: Stable Plan - Discharge Summary Discharge Rx Participant: Yes New Discharge Prescriptions: New Meclizine [Antivert] 25 mg PO TID PRN 30 Days #90 tab PRN Reason: Vertigo Continue Rosuvastatin [Crestor] 20 mg PO DAILY Furosemide [Lasix] 40 mg PO DAILY Ammonium Lactate Cream [Lac-Hydrin 12% Cream] 1 applic TOPICAL BID PRN PRN Reason: Dry Skin Levothyroxine Sodium [Synthroid] 25 mcg PO DAILY Azelastine HCl [Astelin Nasal [place]] 2 spr EA NOSTRIL BID PRN PRN Reason: Allergy Symptoms Apixaban [Eliquis] 5 mg PO BID #60 tab Cholecalciferol [Vitamin D3 (125 Mcg = 5000 Iu)] 125 mcg PO DAILY carvediloL [Coreg] 12.5 mg PO BID Cetirizine HCl [Zyrtec] 10 mg PO DAILY Losartan/Hydrochlorothiazide [Hyzaar 100-12.5 Tablet] 1 tab PO DAILY Discharge Medication List Rosuvastatin [Crestor] 20 mg PO DAILY 10/19/21 [History] Apixaban [Eliquis] 5 mg PO BID #60 tab 10/20/21 [Rx] Cholecalciferol [Vitamin D3 (125 Mcg = 5000 Iu)] 125 mcg PO DAILY 11/22/21 [History] Furosemide [Lasix] 40 mg PO DAILY 11/22/21 [History] Ammonium Lactate Cream [Lac-Hydrin 12% Cream] 1 applic TOPICAL BID PRN 07/31/22 [History] Azelastine HCl [Astelin Nasal [place]] 2 spr EA NOSTRIL BID PRN 07/31/22 [History] Cetirizine HCl [Zyrtec] 10 mg PO DAILY 07/31/22 [History] Levothyroxine Sodium [Synthroid] 25 mcg PO DAILY 07/31/22 [History] Losartan/Hydrochlorothiazide [Hyzaar 100-12.5 Tablet] 1 tab PO DAILY 07/31/22 [History] carvediloL [Coreg] 12.5 mg PO BID 07/31/22 [History] Meclizine [Antivert] 25 mg PO TID PRN 30 Days #90 tab 08/01/22 [Rx] Follow up Appointment(s)/Referral(s): vIan Gardiner DO [STAFF PHYSICIAN] - 3 Weeks Urvashi Lion MD [Primary Care Provider] - 1-2 days Patient Instructions/Handouts: Vertigo (GEN)
== END 2022-08-01 14:09 ==
LOC: EC 21:56 → 6NMEDSUR 07-31 01:06
PROVIDERS: ADMIT Internal Medicine; ATTEND Internal Medicine
DX: R42 Dizziness and giddiness (principal); I65.23 Occlusion and stenosis of bilateral carotid arteries; I48.19 Other persistent atrial fibrillation; I11.9 Hypertensive heart disease without heart failure; H55.09 Other forms of nystagmus; R61 Generalized hyperhidrosis; R11.2 Nausea with vomiting, unspecified; L40.9 Psoriasis, unspecified; E78.5 Hyperlipidemia, unspecified; I25.10 Atherosclerotic heart disease of native coronary artery without angina pectoris; I34.81 Nonrheumatic mitral (valve) annulus calcification; I34.0 Nonrheumatic mitral (valve) insufficiency; R09.89 Other specified symptoms and signs involving the circulatory and respiratory systems; E66.9 Obesity, unspecified; Z68.37 Body mass index [BMI] 37.0-37.9, adult; Z79.82 Long term (current) use of aspirin; Z79.02 Long term (current) use of antithrombotics/antiplatelets; Z79.890 Hormone replacement therapy; Z79.01 Long term (current) use of anticoagulants; Z79.899 Other long term (current) drug therapy; Z88.1 Allergy status to other antibiotic agents; Z88.2 Allergy status to sulfonamides; Z95.5 Presence of coronary angioplasty implant and graft; Z90.710 Acquired absence of both cervix and uterus
CPT/HCPCS: 96361; 96374; 96375; 99285; 36415; 93005; 93306; 83880; 80053; 83690; 83735; 84484; 85025; 81001; 71046; 93880; 70450; G0378 ×2; J1200; J0780

== ENCOUNTER → 2022-09-01 | Outpatient (CLI) | payer MEDICARE, OTHER ==
--- NOTE | 2022-09-04 08:57 | MM ---
Reason for Exam: Screening (asymptomatic). Last screening mammogram was performed 12 month(s) ago. Patient History: Menarche at age 10. First Full-Term at age 19. Left ovary removed at age 47. Right ovary removed at age 47. Hysterectomy at age 47. Postmenopausal. Benign Core Biopsy on the right side. 09/09/1997, Benign Stereotactic Core Biopsy on the right side. Risk Values: Fátima 5 year model risk: 2.6%. NCI Lifetime model risk: 6.7%. Prior Study Comparison: 03/15/2020 Right Diagnostic Mammogram, [facility]. 07/16/2020 Bilateral Screening Mammogram, [facility]. 08/23/2021 Bilateral MG 3D screening mammo w/cad, [facility]. Tissue Density: There are scattered fibroglandular densities. Findings: Analyzed By CAD. There is no suspicious group of microcalcifications or new suspicious mass in either breast. Overall Assessment: Benign, BI-RAD 2 Management: Screening Mammogram of both breasts in 1 year. . Patient should continue monthly self-breast exams. A clinical breast exam by your physician is recommended on an annual basis. This exam should not preclude additional follow-up of suspicious palpable abnormalities. Note on Fátima scores and lifetime risk: 1. A Fátima score greater than 3% is considered moderate risk. If this is the case, consider specialist referral to assess eligibility for a risk reducing agent. 2. If overall lifetime risk for the development of breast cancer is 20% or higher, the patient may qualify for future screening with alternating mammogram and breast MRI. Electronically signed and approved by: Chito Mixon M.D. Radiologis
== END | disposition home or self-care (01) ==
LOC: RADMAMWWP 11:17
PROVIDERS: ATTEND Internal Medicine
DX: Z12.31 Encounter for screening mammogram for malignant neoplasm of breast (principal); Z78.0 Asymptomatic menopausal state
CPT/HCPCS: 77063; 77067

== ENCOUNTER → 2022-10-09 | Outpatient (CLI) | payer MEDICARE, OTHER ==
--- NOTE | 2022-10-10 11:10 | MR ---
EXAMINATION TYPE: MR brain and iac wo/w con DATE OF EXAM: 10/09/2022 3:24 PM COMPARISON: NONE HISTORY: Dizzy spells CONTRAST: Patient received 10.5 mL intravenous Gadavist gadolinium contrast. Multiplanar and multispin-echo imaging of the brain was performed . Pre and post contrast enhanced i mages are obtained. The ventricles, basal cisterns and sulci overlying the cerebral convexities are mildly enlarged. There is evidence of mild periventricular white matter ischemic demyelination. Remote deep white matter insults are also noted. No acute edema is seen on diffusion weighted imaging. There is no evidence for midline shift or mass effect. Acute intracranial hemorrhage or extra-axial collection is not evident. No enhancing lesions are seen. The paranasal sinuses and mastoid air cells are well-aerated. IMPRESSION: Age-related atrophic and chronic small vessel ischemic change. No acute intracranial process at this time. No enhancing lesions are seen.
== END | disposition home or self-care (01) ==
LOC: RADMRIMAIN 10:49
PROVIDERS: ATTEND Otolaryngology
DX: I67.82 Cerebral ischemia (principal); G31.9 Degenerative disease of nervous system, unspecified; R42 Dizziness and giddiness
CPT/HCPCS: 70553; A9585

== ENCOUNTER → 2023-09-05 | Outpatient (CLI) | payer MEDICARE ==
--- NOTE | 2023-09-07 14:02 | MM ---
Reason for Exam: Screening (asymptomatic). Last screening mammogram was performed 12 month(s) ago. Patient History: Menarche at age 10. First Full-Term at age 19. Left ovary removed at age 47. Right ovary removed at age 47. Hysterectomy at age 47. Postmenopausal. Benign Core Biopsy on the right side. 09/09/1997, Benign Stereotactic Core Biopsy on the right side. Risk Values: Fátima 5 year model risk: 2.6%. NCI Lifetime model risk: 6.3%. Prior Study Comparison: 07/16/2020 Bilateral Screening Mammogram, [facility]. 08/23/2021 Bilateral MG 3D screening mammo w/cad, [facility]. 09/01/2022 Bilateral MG 3D screening mammo w/cad, [facility]. Tissue Density: The breasts are almost entirely fatty. Findings: Analyzed By CAD. Right breast: There is no suspicious group of microcalcifications or new suspicious mass. Left breast: There is no suspicious group of microcalcifications or new suspicious mass. Overall Assessment: Negative, BI-RAD 1 Management: Screening Mammogram of both breasts in [address] [facility] will attempt to contact patient to return for supplemental views and ultrasound if indicated. Patient should continue monthly self-breast exams. A clinical breast exam by your physician is recommended on an annual basis. This exam should not preclude additional follow-up of suspicious palpable abnormalities. Note on Fátima scores and lifetime risk: 1. A Fátima score greater than 3% is considered moderate risk. If this is the case, consider specialist referral to assess eligibility for a risk reducing agent. 2. If overall lifetime risk for the development of breast cancer is 20% or higher, the patient may qualify for future screening with alternating mammogram and breast MRI. Electronically signed and approved by: Manoj Hopkins DO
== END | disposition home or self-care (01) ==
LOC: RADMAMWWP 10:08
PROVIDERS: ATTEND Internal Medicine
DX: Z12.31 Encounter for screening mammogram for malignant neoplasm of breast (principal); Z78.0 Asymptomatic menopausal state
CPT/HCPCS: 77063; 77067

== ENCOUNTER 2024-02-05 08:51 | Observation (INO) | payer MEDICARE ==
--- NOTE | 2024-02-05 09:00 | ED ---
General Adult HPI - General Stated complaint: SOB Time Seen by Provider: 02/05/24 08:53 Source: patient, EMS, RN notes reviewed Mode of arrival: EMS Limitations: no limitations - History of Present Illness Initial comments: Patient is a 73-year-old female present to the emergency department with concerns with difficulty breathing. Symptoms have progressed over the past week to 10 days. Patient does have some chest pressure with exertion only. No leg pain or swelling. No history of similar symptoms previously. Patient does have history of A-fib. No cough or fever. - Related Data Home Medications Medication Instructions Recorded Confirmed Rosuvastatin [Crestor] 20 mg PO DAILY 10/19/21 07/31/22 Cholecalciferol [Vitamin D3 (125 125 mcg PO DAILY 11/22/21 07/31/22 Mcg = 5000 Iu)] Furosemide [Lasix] 40 mg PO DAILY 11/22/21 07/31/22 Ammonium Lactate Cream [Lac-Hydrin 1 applic TOPICAL BID PRN 07/31/22 07/31/22 12% Cream] Azelastine HCl [Astelin Nasal 2 spr EA NOSTRIL BID PRN 07/31/22 07/31/22 [place]] Cetirizine HCl [Zyrtec] 10 mg PO DAILY 07/31/22 07/31/22 Levothyroxine Sodium [Synthroid] 25 mcg PO DAILY 07/31/22 07/31/22 Losartan/Hydrochlorothiazide 1 tab PO DAILY 07/31/22 07/31/22 [Hyzaar 100-12.5 Tablet] carvediloL [Coreg] 12.5 mg PO BID 07/31/22 07/31/22 Previous Rx's Medication Instructions Recorded Apixaban [Eliquis] 5 mg PO BID #60 tab 10/20/21 Meclizine [Antivert] 25 mg PO TID PRN 30 Days #90 tab 08/01/22 Allergies Allergy/AdvReac Type Severity Reaction Status Date / Time Sulfa (Sulfonamide Allergy Unknown Rash/Hives Verified 07/31/22 07:30 Antibiotics) sulfamethoxazole Allergy Rash/Hives Verified 07/31/22 07:30 [From Bactrim] on hands tetracycline Allergy Unknown Verified 07/31/22 07:30 trimethoprim [From Bactrim] Allergy Rash/Hives Verified 07/31/22 07:30 on hands Review of Systems ROS Statement: Those systems with pertinent positive or pertinent negative responses have been documented in the HPI. ROS Other: All systems not noted in ROS Statement are negative. Constitutional: Denies: fever Eyes: Denies: eye pain Respiratory: Reports: as per HPI, dyspnea. Denies: cough Cardiovascular: Reports: as per HPI, dyspnea on exertion. Denies: edema Endocrine: Reports: fatigue Gastrointestinal: Denies: abdominal pain Past Medical History Past Medical History: Hypertension Additional Past Medical History / Comment(s): PSORIASIS OF SCALP. History of Any Multi-Drug Resistant Organisms: None Reported Past Surgical History: Heart Catheterization With Stent, Hysterectomy Past Anesthesia/Blood Transfusion Reactions: No Reported Reaction Date of Last Stent Placement:: july 2020 Past Psychological History: No Psychological Hx Reported Smoking Status: Never smoker Past Alcohol Use History: None Reported Past Drug Use History: None Reported - Past Family History Mother Family Medical History: No Reported History General Exam Limitations: no limitations General appearance: alert, in no apparent distress Head exam: Present: normocephalic Eye exam: Present: normal appearance Neck exam: Present: normal inspection Respiratory exam: Present: normal lung sounds bilaterally Cardiovascular Exam: Present: tachycardia, irregular rhythm, normal heart sounds GI/Abdominal exam: Present: soft. Absent: tenderness Extremities exam: Present: normal inspection. Absent: pedal edema, calf tenderness Neurological exam: Present: alert Psychiatric exam: Present: normal affect, normal mood Skin exam: Present: normal color Course Vital Signs 02/05/24 02/05/24 08:52 09:09 Temperature 98.2 F Pulse Rate 99 Pulse Rate [ 115 H [employer] ] Respiratory 22 22 Rate Blood Pressure 157/111 O2 Sat by Pulse 97 Oximetry EKG Findings - EKG Results: EKG: interpreted by ERMD (Low QRS voltage. Nonspecific ST-T), normal axis EKG shows: tachycardia, atrial fibrillation Medical Decision Making - Medical Decision Making Was pt. sent in by a medical professional or institution (, PA, QUARRY MANAGER, urgent care, hospital, or custodial...) When possible be specific @ -No Did you speak to anyone other than the patient for history (EMS, parent, family, police, friend...)? What history was obtained from this source @ -No Did you review nursing and triage notes (agree or disagree)? Why? @ -I reviewed and agree with nursing and triage notes Were old charts reviewed (outside hosp., previous admission, EMS record, old EKG, old radiological studies, urgent care reports/EKG's, custodial records)? Report findings @ -Previous chest x-ray reviewed that does show some cardiomegaly and possibly some edema however not as significant as today's x-ray Differential Diagnosis (chest pain, altered mental status, abdominal pain women, abdominal pain men, vaginal bleeding, weakness, fever, dyspnea, syncope, headache, dizziness, GI bleed, back pain, seizure, CVA, palpatations, mental health, musculoskeletal)? @ -Differential Dyspnea: Coronary syndrome, arrhythmia, tamponade, asthma, COPD, pulmonary embolism, pn eumonia, pneumothorax, pulmonary effusion, anaphylaxis, diabetic ketoacidosis, flailed chest, pulmonary contusion, diaphragmatic rupture, anemia, neuromuscular, this is not meant to be an all-inclusive list. EKG interpreted by me (3pts min.). @ -As above X-rays interpreted by me (1pt min.). @ -Chest x-ray shows cardiomegaly megaly and pulmonary edema CT interpreted by me (1pt min.). @ -None done U/S interpreted by me (1pt. min.). @ -None done What testing was considered but not performed or refused? (CT, X-rays, U/S, labs)? Why? @ -None What meds were considered but not given or refused? Why? @ -None Did you discuss the management of the patient with other professionals (professionals i.e. DrErin, PA, QUARRY MANAGER, lab, RT, psych nurse, dialysis social worker, supervisor cigar processing, teacher, interface control officer, manager case management)? Give summary @ -Case was discussed with Dr. Lion who will admit his patient Was smoking cessation discussed for >3mins.? @ -No Was critical care preformed (if so, how long)? @ -No Were there social determinants of health that impacted care today? How? (Homelessness, low income, unemployed, alcoholism, drug addiction, transportation, low edu. Level, literacy, decrease access to med. care, nursing home, rehab)? @ -No Was there de-escalation of care discussed even if they declined (Discuss DNR or withdrawal of care, Hospice)? DNR status @ -No What co-morbidities impacted this encounter? (DM, HTN, Smoking, COPD, CAD, Cancer, CVA, ARF, Chemo, Hep., AIDS, mental health diagnosis, sleep apnea, morbid obesity)? @ -History of A-fib Was patient admitted / discharged? Hospital course, mention meds given and route, prescriptions, significant lab abnormalities, going to OR and other pertinent info. @ -Patient presents with dyspnea, worse with exertion and some chest discomfort with exertion. Chest x-ray and history consistent with CHF. Patient will be admitted with cardiac consult. Admission orders written. Patient reevaluated and updated Undiagnosed new problem with uncertain prognosis? @ -No Drug Therapy requiring intensive monitoring for toxicity (Heparin, Nitro, Insulin, Cardizem)? @ -No Were any procedures done? @ -No Diagnosis/symptom? @ -CHF Acute, or Chronic, or Acute on Chronic? @ -Acute Uncomplicated (without systemic symptoms) or Complicated (systemic symptoms)? @ -Default Side effects of treatment? @ -No Exacerbation, Progression, or Severe Exacerbation? @ -No Poses a threat to life or bodily function? How? (Chest pain, [place], [place], pneumonia, PE, COPD, DKA, ARF, appy, cholecystitis, CVA, Diverticulitis, Homicidal, Suicidal, threat to staff... and all critical care pts) @ -No - Lab Data Result diagrams: 02/05/24 09:03 02/05/24 09:03 Lab Results 02/05/24 02/05/24 02/05/24 Range/Units 09:03 09:03 09:03 WBC 5.2 (3.8-10.6) k/uL RBC 4.27 (3.80-5.40) m/uL Hgb 12.3 (11.4-16.0) gm/dL Hct 38.5 (34.0-46.0) % MCV 90.3 (80.0-100.0) fL MCH 28.9 (25.0-35.0) pg MCHC 32.0 (31.0-37.0) g/dL RDW 13.4 (11.5-15.5) % Plt Count 120 L (150-450) k/uL MPV 9.3 Neutrophils % 69 % Lymphocytes % 19 % Monocytes % 7 % Eosinophils % 2 % Basophils % 1 % Neutrophils # 3.6 (1.3-7.7) k/uL Lymphocytes # 1.0 (1.0-4.8) k/uL Monocytes # 0.4 (0-1.0) k/uL Eosinophils # 0.1 (0-0.7) k/uL Basophils # 0.0 (0-0.2) k/uL PT 12.7 H (10.0-12.5) sec INR 1.2 H (<1.2) APTT 27.2 (22.0-30.0) sec Sodium 138 (137-145) mmol/L Potassium 3.6 (3.5-5.1) mmol/L Chloride 103 (98-107) mmol/L Carbon Dioxide 26 (22-30) mmol/L Anion Gap 9 mmol/L BUN 22 H (7-17) mg/dL Creatinine 0.64 (0.52-1.04) mg/dL Est GFR (CKD-EPI)AfAm >90 (>60 ml/min/1.73 sqM) Est GFR (CKD-EPI)NonAf 88 (>60 ml/min/1.73 sqM) Glucose 117 H (74-99) mg/dL Plasma Lactic Acid Ryan (0.7-2.0) mmol/L Calcium 9.3 (8.4-10.2) mg/dL Magnesium 1.9 (1.6-2.3) mg/dL Total Bilirubin 1.4 H (0.2-1.3) mg/dL AST 35 (14-36) U/L ALT 25 (4-34) U/L Alkaline Phosphatase 72 (38-126) U/L Troponin I (0.000-0.034) ng/mL NT-Pro-B Natriuret Pep 2170 pg/mL Total Protein 7.0 (6.3-8.2) g/dL Albumin 4.3 (3.5-5.0) g/dL 02/05/24 02/05/24 Range/Units 09:03 09:03 WBC (3.8-10.6) k/uL RBC (3.80-5.40) m/uL Hgb (11.4-16.0) gm/dL Hct (34.0-46.0) % MCV (80.0-100.0) fL MCH (25.0-35.0) pg MCHC (31.0-37.0) g/dL RDW (11.5-15.5) % Plt Count (150-450) k/uL MPV Neutrophils % % Lymphocytes % % Monocytes % % Eosinophils % % Basophils % % Neutrophils # (1.3-7.7) k/uL Lymphocytes # (1.0-4.8) k/uL Monocytes # (0-1.0) k/uL Eosinophils # (0-0.7) k/uL Basophils # (0-0.2) k/uL PT (10.0-12.5) sec INR (<1.2) APTT (22.0-30.0) sec Sodium (137-145) mmol/L Potassium (3.5-5.1) mmol/L Chloride (98-107) mmol/L Carbon Dioxide (22-30) mmol/L Anion Gap mmol/L BUN (7-17) mg/dL Creatinine (0.52-1.04) mg/dL Est GFR (CKD-EPI)AfAm (>60 ml/min/1.73 sqM) Est GFR (CKD-EPI)NonAf (>60 ml/min/1.73 sqM) Glucose (74-99) mg/dL Plasma Lactic Acid Ryan 1.1 (0.7-2.0) mmol/L Calcium (8.4-10.2) mg/dL Magnesium (1.6-2.3) mg/dL Total Bilirubin (0.2-1.3) mg/dL AST (14-36) U/L ALT (4-34) U/L Alkaline Phosphatase (38-126) U/L Troponin I <0.012 (0.000-0.034) ng/mL NT-Pro-B Natriuret Pep pg/mL Total Protein (6.3-8.2) g/dL Albumin (3.5-5.0) g/dL Disposition Clinical Impression: Congestive heart failure Disposition: ADMITTED IP TO THIS HOSP Is patient prescribed a controlled substance at d/c from ED?: No Referrals: Urvashi Lion MD [Primary Care Provider] - 1-2 days Time of Disposition: 10:06
[2024-02-05 09:13] LABS: Basophils % (A) 1 %; Eosinophils # (A) 0.1 k/uL (0-0.7); Eosinophils % (A) 2 %; HCT 38.5 % (34.0-46.0); HGB 12.3 gm/dL (11.4-16.0); Lymphocytes % (A) 19 %; MCH 28.9 pg (25.0-35.0); MCV 90.3 fL (80.0-100.0); Mean Platelet Volume 9.3; Monocytes # (A) 0.4 k/uL (0-1.0); Monocytes % (A) 7 %; Neutrophils # (A) 3.6 k/uL (1.3-7.7); Neutrophils % (A) 69 %; Platelet Count 120 k/uL (150-450); RBC 4.27 m/uL (3.80-5.40); RDW 13.4 % (11.5-15.5); WBC 5.2 k/uL (3.8-10.6)
[2024-02-05] MEDS: DILTIAZEM 5 MG/ML 5 ML VIAL IVP STA (09:15)
--- NOTE | 2024-02-05 09:21 | XR ---
EXAMINATION TYPE: XR chest 2V DATE OF EXAM: 02/05/2024 9:16 AM COMPARISON: Chest radiographs from 07/30/2022 CLINICAL INDICATION: Female, 73 years old with history of difficulty breathing; [facility] TECHNIQUE: XR chest 2V Frontal and lateral views of the chest. FINDINGS: Lungs/Pleura: No evidence of focal consolidation or pneumothorax. Blunting of the costophrenic angles is present. Pulmonary vascularity: Pulmonary vascular congestion. Heart/mediastinum: Cardiomediastinal silhouette is enlarged and stable. Musculoskeletal: No acute osseous pathology. Other findings: None IMPRESSION: Multifocal airspace opacities correlate for congestive heart failure acute exacerbation. [facility], , 02/05/2024 9:19 AM
[2024-02-05 09:23] LABS: INR 1.2 (<1.2); Partial Thromboplastin Time 27.2 sec (22.0-30.0); Prothrombin Time 12.7 sec (10.0-12.5)
[2024-02-05 09:24] LABS: ALT 25 U/L (4-34); African American GFR (CKD) >90 (>60 ml/min/1.73 sqM); Albumin 4.3 g/dL (3.5-5.0); Anion Gap 9 mmol/L; Blood Urea Nitrogen 22 mg/dL (7-17); Calcium 9.3 mg/dL (8.4-10.2); Carbon Dioxide 26 mmol/L (22-30); Chloride 103 mmol/L (98-107); Glucose 117 mg/dL (74-99); Non-African American GFR(CKD) 88 (>60 ml/min/1.73 sqM); Sodium 138 mmol/L (137-145); Total Bilirubin 1.4 mg/dL (0.2-1.3)
[2024-02-05 09:26] LABS: AST 35 U/L (14-36); Alkaline Phosphatase 72 U/L (38-126); Magnesium 1.9 mg/dL (1.6-2.3); Potassium 3.6 mmol/L (3.5-5.1)
[2024-02-05 09:31] LABS: NT-Pro-B-Type Natriuretic Pept 2170 pg/mL
--- NOTE | 2024-02-05 10:17 | P.HPIM ---
History of Present Illness H&P Date: 02/05/24 Olinda Francois is a 73-year-old female patient who presented to the ER with concerns of increased shortness of breath that has been increasing over the past 2 weeks. Patient reports that her has been sick at [facility] and she has been busy going back and forth to take care of him. Patient denies any recent illness. Patient does report mild cough and slight increase in swelling to lower extremities. Patient does have a past medical history of atrial fibrillation, hypertension, previous heart cath with stents. Chest x-ray was completed showing multifocal airspace opacities correlate for CHF acute exacerbation. Lab work revealing white blood cell 5.2, hemoglobin 12.3, creatinine 0.64 bun 22 BNP 2178, negative troponin. Patient has been started on IV Lasix cardiology services consulted. Current vital signs temp 98.2 heart rate was elevated at 115 respiratory rate 22 blood pressure 157/111 and pulse ox 97% on room air patient was given IV Cardizem in ER. At this time patient reports slight improvement. Patient denies chest pain. Patient does report some shortness of breath. Patient denies nausea vomiting or diarrhea. Patient denies any urinary burning or frequency. At this time patient will be admitted 2D echo will be ordered, cardiology consult and patient to be started on IV Lasix. Review of Systems Please refer to HPI otherwise unremarkable Past Medical History Past Medical History: Hypertension Additional Past Medical History / Comment(s): PSORIASIS OF SCALP. History of Any Multi-Drug Resistant Organisms: None Reported Past Surgical History: Heart Catheterization With Stent, Hysterectomy Past Anesthesia/Blood Transfusion Reactions: No Reported Reaction Date of Last Stent Placement:: july 2020 Past Psychological History: No Psychological Hx Reported Smoking Status: Never smoker Past Alcohol Use History: None Reported Past Drug Use History: None Reported - Past Family History Mother Family Medical History: No Reported History Medications and Allergies Home Medications Medication Instructions Recorded Confirmed Type Rosuvastatin [Crestor] 20 mg PO DAILY 10/19/21 07/31/22 History Apixaban [Eliquis] 5 mg PO BID #60 tab 10/20/21 07/31/22 Rx Cholecalciferol [Vitamin D3 (125 125 mcg PO DAILY 11/22/21 07/31/22 History Mcg = 5000 Iu)] Furosemide [Lasix] 40 mg PO DAILY 11/22/21 07/31/22 History Ammonium Lactate Cream [Lac-Hydrin 1 applic TOPICAL BID PRN 07/31/22 07/31/22 History 12% Cream] Azelastine HCl [Astelin Nasal 2 spr EA NOSTRIL BID PRN 07/31/22 07/31/22 History [place]] Cetirizine HCl [Zyrtec] 10 mg PO DAILY 07/31/22 07/31/22 History Levothyroxine Sodium [Synthroid] 25 mcg PO DAILY 07/31/22 07/31/22 History Losartan/Hydrochlorothiazide 1 tab PO DAILY 07/31/22 07/31/22 History [Hyzaar 100-12.5 Tablet] carvediloL [Coreg] 12.5 mg PO BID 07/31/22 07/31/22 History Meclizine [Antivert] 25 mg PO TID PRN 30 Days #90 tab 08/01/22 Rx Allergies Allergy/AdvReac Type Severity Reaction Status Date / Time Sulfa (Sulfonamide Allergy Unknown Rash/Hives Verified 07/31/22 07:30 Antibiotics) sulfamethoxazole Allergy Rash/Hives Verified 07/31/22 07:30 [From Bactrim] on hands tetracycline Allergy Unknown Verified 07/31/22 07:30 trimethoprim [From Bactrim] Allergy Rash/Hives Verified 07/31/22 07:30 on hands Physical Exam Vitals: Vital Signs Temp Pulse Pulse Resp BP Pulse Ox 02/05/24 09:09 115 H 22 02/05/24 08:52 98.2 F 99 22 157/111 97 Intake and Output 02/04/24 02/05/24 02/05/24 22:59 06:59 14:59 Other: Weight 97.522 kg Head normocephalic Neck supple Lungs clear to auscultation bilaterally no wheezing or crackles Heart regular rate and rhythm S1-S2, no rub or gallop Abdomen is soft nontender nondistended positive bowel sounds no hepatosplenomegaly Extremities no edema Neuro alert and orientated to 3 Results CBC & Chem 7: 02/05/24 09:03 02/05/24 09:03 Labs: Abnormal Lab Results - Last 24 Hours (Table) 02/05/24 02/05/24 02/05/24 Range/Units 09:03 09:03 09:03 Plt Count 120 L (150-450) k/uL PT 12.7 H (10.0-12.5) sec INR 1.2 H (<1.2) BUN 22 H (7-17) mg/dL Glucose 117 H (74-99) mg/dL Total Bilirubin 1.4 H (0.2-1.3) mg/dL Assessment and Plan Assessment: 1. Shortness of breath secondary to acute CHF exacerbation 2. A-fib with RVR 3. History of atrial fibrillation 4. History of essential hypertension 5. History of hyperlipidemia 6. History of coronary artery disease with previous history of angioplasty and stent placement At this time patient will be admitted Cardiology services consulted 2D echo ordered Patient started on IV Lasix Home meds to be verified by pharmacy Repeat labs ordered for a.m. Time with Patient: Greater than 30 (Greater than 60% of the total time spent in counseling and coordination of care)
[2024-02-05] MEDS: FUROSEMIDE 10 MG/ML 4 ML VIAL IV SCH (10:20)
[2024-02-05] MEDS: ASPIRIN 325 MG TAB PO STA (10:20)
[2024-02-05] MEDS: NITROGLYCERIN OINT 1 INCH/GM PACKET TOPICAL SCH ×2 (12:04)
[2024-02-05] MEDS: ACETAMINOPHEN TAB 325 MG TAB PO PRN (14:23)
[2024-02-05] MEDS ORDERED: ARTIFICIAL TEARS-HYPROMELLOSE DROPS 15 ML BTL BOTH EYES PRN (16:36)
[2024-02-05] MEDS: carvediloL 12.5 MG TAB PO SCH (20:44)
[2024-02-05] MEDS: APIXABAN 5 MG TAB PO SCH (20:44)
[2024-02-05] MEDS: cycloSPORINE 0.05% OPHTH 0.4 ML DROPERETTE BOTH EYES SCH (21:31)
[2024-02-05] MEDS ORDERED: [UNRECOGNIZED DRUG - OTHER] PO SCH (22:00)
[2024-02-05] MEDS ORDERED: CALCIUM PO SCH (22:00)
[2024-02-05] MEDS ORDERED: NON FORMULARY DRUG (Omega-3/Dha/Epa/Fish Oil [Omega-3 Fish Oil 1,000 Mg Sfgl] 1 EACH Capsu PO SCH (22:00)
[2024-02-06] MEDS: LEVOTHYROXINE 25 MCG TAB PO SCH (06:23)
[2024-02-06 06:51] LABS: Basophils % (A) 1 %; Eosinophils # (A) 0.1 k/uL (0-0.7); Eosinophils % (A) 2 %; HGB 12.5 gm/dL (11.4-16.0); Lymphocytes % (A) 21 %; MCH 29.1 pg (25.0-35.0); MCHC 32.9 g/dL (31.0-37.0); MCV 88.5 fL (80.0-100.0); Mean Platelet Volume 9.8; Monocytes # (A) 0.5 k/uL (0-1.0); Monocytes % (A) 10 %; Neutrophils # (A) 3.2 k/uL (1.3-7.7); Neutrophils % (A) 65 %; Platelet Count 115 k/uL (150-450); RBC 4.29 m/uL (3.80-5.40); RDW 13.8 % (11.5-15.5); WBC 4.9 k/uL (3.8-10.6)
[2024-02-06 07:00] LABS: ALT 23 U/L (4-34); AST 27 U/L (14-36); African American GFR (CKD) >90 (>60 ml/min/1.73 sqM); Albumin 4.3 g/dL (3.5-5.0); Alkaline Phosphatase 66 U/L (38-126); Anion Gap 6 mmol/L; Blood Urea Nitrogen 18 mg/dL (7-17); Calcium 9.2 mg/dL (8.4-10.2); Carbon Dioxide 32 mmol/L (22-30); Chloride 101 mmol/L (98-107); Glucose 99 mg/dL (74-99); Non-African American GFR(CKD) 90 (>60 ml/min/1.73 sqM); Sodium 139 mmol/L (137-145); Total Bilirubin 1.3 mg/dL (0.2-1.3)
[2024-02-06] MEDS: hydroCHLOROthiazide 12.5 MG CAP PO SCH (08:14)
[2024-02-06] MEDS: ASPIRIN 81 MG PO SCH (08:14)
[2024-02-06] MEDS: LOSARTAN 50 MG TAB PO SCH (08:14)
[2024-02-06] MEDS: ATORVASTATIN 40 MG TAB PO SCH (08:14)
[2024-02-06] MEDS: CHOLECALCIFEROL 25 MCG (1000 IU) TABLET PO SCH (08:14)
[2024-02-06] MEDS: ASCORBIC ACID 500 MG TAB PO SCH (08:14)
[2024-02-06] MEDS: LORATADINE 10 MG TAB PO SCH (08:16)
[2024-02-06] MEDS ORDERED: Potassium Replacement Protocol 1 EACH MISC MISCELLANE PRN ×2 (08:29→11:25)
[2024-02-06] MEDS ORDERED: ASPIRIN 325 MG TAB PO SCH (09:00)
[2024-02-06] MEDS: POTASSIUM CHLORIDE ER 20 MEQ TAB.ER PO SCH (09:02)
[2024-02-06 09:50] VITALS: TEMP 98
[2024-02-06 11:23] VITALS: BMI 36.4
[2024-02-06] MEDS: AMIODARONE 200 MG TAB PO SCH (12:01)
[2024-02-06 12:10] VITALS: BP 130/83; PULSE 107; RESP 18
--- NOTE | 2024-02-06 12:21 | P.DS ---
Providers Date of admission: 02/05/24 10:07 Expected date of discharge: 02/06/24 Attending physician: Urvashi Lion Consults: 02/05/24 10:07 Consult Physician Routine Consulting Provider: Ivan Gardiner Consult Reason/Comments: chf Do you want consulting provider notified?: Yes Primary care physician: Urvashi Lion [facility] Course: Discharge diagnosis 1. Shortness of breath secondary to acute CHF exacerbation 2. A-fib with RVR 3. History of atrial fibrillation 4. History of essential hypertension 5. History of hyperlipidemia 6. History of coronary artery disease with previous history of angioplasty and stent placement Hospital course Olinda Francois is a 73-year-old female patient who presented to the ER with co ncerns of increased shortness of breath that has been increasing over the past 2 weeks. Patient reports that her has been sick at [facility] and she has been busy going back and forth to take care of him. Patient denies any recent illness. Patient does report mild cough and slight increase in swelling to lower extremities. Patient does have a past medical history of atrial fibrillation, hypertension, previous heart cath with stents. Chest x-ray was completed showing multifocal airspace opacities correlate for CHF acute exacerbation. Lab work revealing white blood cell 5.2, hemoglobin 12.3, creatinine 0.64 bun 22 BNP 2178, negative troponin. Patient has been started on IV Lasix cardiology services consulted. Current vital signs temp 98.2 heart rate was elevated at 115 respiratory rate 22 blood pressure 157/111 and pulse ox 97% on room air patient was given IV Cardizem in ER. At this time patient reports slight improvement. Patient denies chest pain. Patient does report some shortness of breath. Patient denies nausea vomiting or diarrhea. Patient denies any urinary burning or frequency. At this time patient will be admitted 2D echo will be ordered, cardiology consult and patient to be started on IV Lasix. On 02/06/2024 patient is alert and oriented x 3. Patient reports she feels significantly improved would like to be DC'd home today. 2D echo was completed but report is not in computer per cardiology nurse practitioner patient has been cleared for discharge can resume on home Lasix dose and was started on amiodarone. Current vital signs temp 98, heart rate 80, respiratory rate 17, blood pressure 121/87 with a pulse ox of 95% on room air. Patient denies chest pain or shortness of breath. Patient denies nausea vomiting or diarrhea. Patient denies any urinary burning or frequency Patient Condition at Discharge: Stable Plan - Discharge Summary Discharge Rx Participant: Yes New Discharge Prescriptions: New Amiodarone [Cordarone] 200 mg PO DAILY 30 Days #30 tab Continue Rosuvastatin [Crestor] 20 mg PO DAILY Furosemide [Lasix] 40 mg PO DAILY Levothyroxine Sodium [Synthroid] 25 mcg PO DAILY cycloSPORINE 0.05% OPHTH SOLN [Restasis] 1 applicator BOTH EYES Q12H [place]-3/Dha/Epa/Fish Oil [[place]-3 Fish Oil 1,000 mg Sfgl] 1 cap PO TID Refresh Optive Riley 3 Eye Drops 1 drop BOTH EYES QID PRN PRN Reason: Dry Eye(S) Cholecalciferol (Vitamin D3) [Vitamin D3 (50 Mcg = 2000 Iu)] 50 mcg PO DAILY Aspirin EC [Ecotrin Low Dose] 81 mg PO DAILY Apixaban [Eliquis] 5 mg PO BID #60 tab carvediloL [Coreg] 12.5 mg PO BID Cetirizine HCl [Zyrtec] 10 mg PO DAILY Losartan/Hydrochlorothiazide [Hyzaar 100-12.5 Tablet] 1 tab PO DAILY Calcium 1000mg/Magnesium 400mg/Zinc 15mg 1 tab PO TID Ascorbic Acid [Vitamin C] 1,000 mg PO DAILY Tobra-Dexamet 0.3-0.1% Eye Sharla [Tobradex Ophth Susp] 1 drops BOTH EYES BID Discharge Medication List Rosuvastatin [Crestor] 20 mg PO DAILY 10/19/21 [History] Apixaban [Eliquis] 5 mg PO BID #60 tab 10/20/21 [Rx] Furosemide [Lasix] 40 mg PO DAILY 11/22/21 [History] Cetirizine HCl [Zyrtec] 10 mg PO DAILY 07/31/22 [History] Levothyroxine Sodium [Synthroid] 25 mcg PO DAILY 07/31/22 [History] Losartan/Hydrochlorothiazide [Hyzaar 100-12.5 Tablet] 1 tab PO DAILY 07/31/22 [History] carvediloL [Coreg] 12.5 mg PO BID 07/31/22 [History] Ascorbic Acid [Vitamin C] 1,000 mg PO DAILY 02/05/24 [History] Aspirin EC [Ecotrin Low Dose] 81 mg PO DAILY 02/05/24 [History] Calcium 1000mg/Magnesium 400mg/Zinc 15mg 1 tab PO TID 02/05/24 [History] Cholecalciferol (Vitamin D3) [Vitamin D3 (50 Mcg = 2000 Iu)] 50 mcg PO DAILY 02/05/24 [History] [place]-3/Dha/Epa/Fish Oil [[place]-3 Fish Oil 1,000 mg Sfgl] 1 cap PO TID 02/05/24 [History] Refresh Optive Riley 3 Eye Drops 1 drop BOTH EYES QID PRN 02/05/24 [History] Tobra-Dexamet 0.3-0.1% Eye Sharla [Tobradex Ophth Susp] 1 drops BOTH EYES BID 02/05/24 [History] cycloSPORINE 0.05% OPHTH SOLN [Restasis] 1 applicator BOTH EYES Q12H 02/05/24 [History] Amiodarone [Cordarone] 200 mg PO DAILY 30 Days #30 tab 02/06/24 [Rx] Follow up Appointment(s)/Referral(s): Urvashi Lion MD [Primary Care Provider] - 1-2 days Discharge Disposition: HOME SELF-CARE
--- NOTE | 2024-02-06 12:34 | P.CRDCN ---
History of Present Illness Consult date: 02/06/24 Consult reason: congestive heart failure History of present illness: This is a 73-year-old female patient of Dr. Gardiner with past medical history of hypertension, hyperlipidemia, coronary artery disease status post PCI in 2020, paroxysmal atrial fibrillation, mild mitral regurgitation, chronic diastolic heart failure, left carotid stenosis 50 to 69%, history of stroke. We have been asked to evaluate the patient for CHF. Patient has been doing well but her has been hospitalized at [facility] and she did not take her lasix for 3 days. She states she filled up with waterr and could not breath. She denies any chest pain or pressure, no palpitations. She is not able to feel when she does into atrial fibrillation. She has been checking BP at home running [employer] 130-150 systolic. Today, breathing is back to normal and she feels well. Blood pressure 121/87, heart rate 80, pulse ox 95% on room air. Patient has been started on IV Lasix 40 mg every 8 hours. Telemetry reviewed and patient remains in atrial fibrillation rate controlled. -EKG: Atrial fibrillation 116 bpm -Chest x-ray: Multifocal airspace opacities correlate for heart failure acute exacerbation. -Laboratory studies: WBC 4.9, hemoglobin 12.5. Potassium 3, BUN 18 creatinine 0.61. Troponin negative x 3. proBNP 2170. -Home cardiac medications: Eliquis 5 mg twice daily, aspirin 81 mg daily, Coreg 12.5 mg twice daily, Lasix 40 mg daily, losartan/hydrochlorothiazide 100-12.5 mg daily, omega-3 3 times daily, Crestor 20 mg daily, also on levothyroxine 25 mcg daily. -Echocardiogram performed in the office on 10/26/2023 revealed EF of 55%, mild LVH, no significant valve issues, RVSP 30. -Lexiscan Cardiolite stress test performed in the office on 08/06/2023: Somewhat fixed somewhat reversible mid apical anterior perfusion defect may be consistent with shifting breast attenuation artifact. No other myocardial perfusion defects to suggest ischemia. Normal LVEF of 60%. Review Of Systems: At the time of my exam: CONSTITUTIONAL: Denies fever or chills. HEENT: Denies blurred vision, vision changes, or eye pain. Denies hemoptysis CARDIOVASCULAR: Denies chest pain. Denies orthopnea. Denies PND. Denies palpitations RESPIRATORY: Denies shortness of breath. GASTROINTESTINAL: Denies abdominal pain. Denies nausea or vomiting. HEMATOLOGIC: Denies bleeding disorders. GENITOURINARY: Denies any blood in urine. SKIN: Denies puritis. Denies rash. Physical examination: Gen: This is a 73-year-old female in no acute distress VS: reviewed HEENT: Head is atraumatic, normocephalic. Pupils equal, round. Sclerae is anicteric. NECK: Supple. No JVD. LUNGS: Clear to auscultation. No wheezes or rhonchi. No intercostal retractions. HEART: Irregular rate and rhythm. No murmur. ABDOMEN: Soft No tenderness. EXTREMITIES: No pedal edema. No calf tenderness. NEUROLOGICAL: Patient is awake, alert and oriented x3. Assessment: Acute diastolic heart failure Paroxysmal atrial fibrillation currently in A-fib rate controlled Hypertension History of coronary artery disease with PCI of the LAD in 2020 Hyperlipidemia Mild mitral regurgitation Plan: Resume patient's home cardiac medications Obtain event monitor prior to discharge Patient is cleared for discharge from cardiology and may be resumed on her home cardiac medications Add amiodarone 200 mg daily Patient to follow-up with Dr. Gardiner in 2 to 3 weeks. May consider outpatient ablation for atrial fibrillation. Thank you kindly for this consultation. Nurse practitioner note has been reviewed, I agree with documented findings and plan of care. Patient was seen and examined. Past Medical History Past Medical History: Atrial Fibrillation, Coronary Artery Disease (CAD), Hypertension Additional Past Medical History / Comment(s): PSORIASIS OF SCALP. History of Any Multi-Drug Resistant Organisms: None Reported Past Surgical History: Heart Catheterization With Stent, Hysterectomy Past Anesthesia/Blood Transfusion Reactions: No Reported Reaction Date of Last Stent Placement:: july 2020 Past Psychological History: No Psychological Hx Reported Smoking Status: Never smoker Past Alcohol Use History: None Reported Past Drug Use History: None Reported - Past Family History Mother Family Medical History: No Reported History Medications and Allergies Home Medications Medication Instructions Recorded Confirmed Type Rosuvastatin [Crestor] 20 mg PO DAILY 10/19/21 02/05/24 History Apixaban [Eliquis] 5 mg PO BID #60 tab 10/20/21 02/05/24 Rx Furosemide [Lasix] 40 mg PO DAILY 11/22/21 02/05/24 History Cetirizine HCl [Zyrtec] 10 mg PO DAILY 07/31/22 02/05/24 History Levothyroxine Sodium [Synthroid] 25 mcg PO DAILY 07/31/22 02/05/24 History Losartan/Hydrochlorothiazide 1 tab PO DAILY 07/31/22 02/05/24 History [Hyzaar 100-12.5 Tablet] carvediloL [Coreg] 12.5 mg PO BID 07/31/22 02/05/24 History Ascorbic Acid [Vitamin C] 1,000 mg PO DAILY 02/05/24 02/05/24 History Aspirin EC [Ecotrin Low Dose] 81 mg PO DAILY 02/05/24 02/05/24 History Calcium 1000mg/Magnesium 1 tab PO TID 02/05/24 02/05/24 History 400mg/Zinc 15mg Cholecalciferol (Vitamin D3) 50 mcg PO DAILY 02/05/24 02/05/24 History [Vitamin D3 (50 Mcg = 2000 Iu)] [place]-3/Dha/Epa/Fish Oil [[place]-3 1 cap PO TID 02/05/24 02/05/24 History Fish Oil 1,000 mg Sfgl] Refresh Optive Riley 3 Eye Drops 1 drop BOTH EYES QID PRN 02/05/24 02/05/24 History Tobra-Dexamet 0.3-0.1% Eye Sharla 1 drops BOTH EYES BID 02/05/24 02/05/24 History [Tobradex Ophth Susp] cycloSPORINE 0.05% OPHTH SOLN 1 applicator BOTH EYES Q12H 02/05/24 02/05/24 History [Restasis] Amiodarone [Cordarone] 200 mg PO DAILY 30 Days #30 tab 02/06/24 Rx Allergies Allergy/AdvReac Type Severity Reaction Status Date / Time Sulfa (Sulfonamide Allergy Unknown Rash/Hives Verified 02/05/24 10:12 Antibiotics) sulfamethoxazole Allergy Rash/Hives Verified 02/05/24 10:12 [From Bactrim] on hands tetracycline Allergy Unknown Verified 02/05/24 10:12 trimethoprim [From Bactrim] Allergy Rash/Hives Verified 02/05/24 10:12 on hands Physical Exam Vitals: Vital Signs Temp Pulse Pulse Resp BP BP Pulse Ox 02/06/24 08:15 98 F 80 17 121/87 95 02/06/24 03:47 95 18 146/89 94 L 02/06/24 00:42 20 02/06/24 00:00 80 18 143/95 93 L 02/05/24 20:45 98.2 F 85 20 149/99 93 L 02/05/24 20:00 98.2 F 85 18 149/99 93 L 02/05/24 18:00 93 16 137/103 94 L 02/05/24 16:45 98 18 155/104 97 02/05/24 13:59 121 H 18 144/98 96 02/05/24 11:00 105 H 16 141/100 95 Intake and Output 02/05/24 02/06/24 02/06/24 22:59 06:59 14:59 Intake Total 250 Output Total 600 Balance -600 250 Intake: Oral 250 Output: Urine 600 Other: Voiding Method Toilet Toilet Toilet # Voids 2 Weight 97.522 kg 96.3 kg Results 02/06/24 06:02 02/06/24 06:02 Cardiac Enzymes 02/05/24 02/05/24 02/06/24 Range/Units 10:31 13:05 06:02 AST 27 (14-36) U/L Troponin I <0.012 <0.012 (0.000-0.034) ng/mL CBC 02/06/24 Range/Units 06:02 WBC 4.9 (3.8-10.6) k/uL RBC 4.29 (3.80-5.40) m/uL Hgb 12.5 (11.4-16.0) gm/dL Hct 38.0 (34.0-46.0) % Plt Count 115 L (150-450) k/uL Comprehensive Metabolic Panel 02/06/24 Range/Units 06:02 Sodium 139 (137-145) mmol/L Potassium 3.0 L (3.5-5.1) mmol/L Chloride 101 (98-107) mmol/L Carbon Dioxide 32 H (22-30) mmol/L BUN 18 H (7-17) mg/dL Creatinine 0.61 (0.52-1.04) mg/dL Glucose 99 (74-99) mg/dL Calcium 9.2 (8.4-10.2) mg/dL AST 27 (14-36) U/L ALT 23 (4-34) U/L Alkaline Phosphatase 66 (38-126) U/L Total Protein 7.0 (6.3-8.2) g/dL Albumin 4.3 (3.5-5.0) g/dL Current Medications Generic Name Dose Route Start Last Admin Trade Name Freq PRN Reason Stop Dose Admin Acetaminophen 650 mg 02/05/24 14:15 02/05/24 14:23 Acetaminophen Tab 325 Mg Tab PO 650 mg Q6HR PRN Administration Fever and/ or Pain Apixaban 5 mg 02/05/24 21:00 02/06/24 08:14 Apixaban 5 Mg Tab PO 5 mg BID GULSHAN Administration Protocol Artificial Tears 1 drops 02/05/24 16:36 Artificial Tears-Hypromellose Drops 15 Ml Btl BOTH EYES QID PRN Dry Eye(s) Ascorbic Acid 1,000 mg 02/06/24 09:00 02/06/24 08:14 Ascorbic Acid 500 Mg Tab PO 1,000 mg DAILY GULSHAN Administration Aspirin 81 mg 02/06/24 09:00 02/06/24 08:14 Aspirin 81 Mg PO 81 mg DAILY GULSHAN Administration Atorvastatin Calcium 40 mg 02/06/24 09:00 02/06/24 08:14 Atorvastatin 40 Mg Tab PO 40 mg DAILY GULSHAN Administration Carvedilol 12.5 mg 02/05/24 21:00 02/06/24 08:14 Carvedilol 12.5 Mg Tab PO 12.5 mg BID GULSHAN Administration Cholecalciferol 50 mcg 02/06/24 09:00 02/06/24 08:14 Cholecalciferol 25 Mcg (1000 Iu) Tablet PO 50 mcg DAILY GULSHAN Administration Cyclosporine 1 drops 02/05/24 21:00 02/06/24 08:15 Cyclosporine 0.05% Ophth 0.4 Ml Droperette BOTH EYES Not Given Q12HR GULSHAN Furosemide 40 mg 02/05/24 11:00 02/06/24 03:44 Furosemide 10 Mg/Ml 4 Ml Vial IV 40 mg Q8H GULSHAN Administration Hydrochlorothiazide 12.5 mg 02/06/24 09:00 02/06/24 08:14 Hydrochlorothiazide 12.5 Mg Cap PO 12.5 mg DAILY GULSHAN Administration Levothyroxine Sodium 25 mcg 02/06/24 06:30 02/06/24 06:23 Levothyroxine 25 Mcg Tab PO 25 mcg 0630 GULSHAN Administration Loratadine 10 mg 02/06/24 09:00 02/06/24 08:16 Loratadine 10 Mg Tab PO Not Given DAILY GULSHAN Losartan Potassium 100 mg 02/06/24 09:00 02/06/24 08:14 Losartan 50 Mg Tab PO 100 mg DAILY GULSHAN Administration Miscellaneous Information 1 each 02/06/24 08:29 Potassium Replacement Protocol 1 Each Misc MISCELLANE DAILY PRN Per Protocol Protocol Nitroglycerin 1 inch 02/06/24 13:00 02/05/24 12:04 Nitroglycerin Oint 1 Inch/Gm Packet TOPICAL 1 inch QID GULSHAN Administration Potassium Chloride 20 meq 02/06/24 09:00 02/06/24 10:12 Potassium Chloride Er 20 Meq Tab.Er PO 02/06/24 11:01 20 meq Q1HR GULSHAN Administration Protocol Intake and Output 02/05/24 02/06/24 02/06/24 22:59 06:59 14:59 Intake Total 250 Output Total 600 Balance -600 250 Intake: Oral 250 Output: Urine 600 Other: Voiding Method Toilet Toilet Toilet # Voids 2 Weight 97.522 kg 96.3 kg 02/06/24 06:02 02/06/24 06:02
--- NOTE | 2024-02-06 17:40 | CA ---
Transthoracic Echo Report Name: Olinda Francois Age: 73 Gender: F : 1950 Exam Date: 02/05/2024 14:25 Exam Location: [facility] Ht (in): 64 Wt (lb): 215 Ordering Physician: Urvashi Lion MD Attending/Referring Phys: Solution Director Dayna Bauer RDCS Procedure CPT: Indications: chf Cardiac Hx: CAD, HTN, A FIB Technical Quality: Fair Contrast 1: Total Dose (mL): Contrast 2: Total Dose (mL): MEASUREMENTS (Male / Female) Normal Values 2D ECHO LV Diastolic Diameter PLAX 4.7 cm 4.2 - 5.9 / 3.9 - 5.3 cm LV Systolic Diameter PLAX 4.0 cm IVS Diastolic Thickness 1.3 cm 0.6 - 1.0 / 0.6 - 0.9 cm LVPW Diastolic Thickness 1.3 cm 0.6 - 1.0 / 0.6 - 0.9 cm LV Relative Wall Thickness 0.5 RV Internal Dim ED PLAX 3.4 cm LVOT Diameter 2.4 cm LA Systolic Diameter LX 4.0 cm 3.0 - 4.0 / 2.7 - 3.8 cm LV Diastolic Volume MOD 4C 73.3 cm??? LV Systolic Volume MOD 4C 47.2 cm??? LV Ejection Fraction MOD 4C 35.6 % LV Cardiac Index MOD 4C 1290.5 cm???/min???m??? LV Diastolic Length 4C 7.3 cm LV Systolic Length 4C 6.9 cm LV Diastolic Volume MOD 2C 89.8 cm??? LV Systolic Volume MOD 2C 38.9 cm??? LV Ejection Fraction MOD 2C 56.7 % LV Cardiac Index MOD 2C 2517.8 cm???/min???m??? LV Diastolic Length 2C 7.3 cm LV Systolic Length 2C 6.8 cm M-MODE Aortic Root Diameter MM 3.6 cm AV Cusp Separation MM 2.3 cm DOPPLER AV Peak Velocity 104.7 cm/s AV Peak Gradient 4.4 mmHg MV Area PHT 8.9 cm??? MR Peak Velocity 640.2 cm/s MR Peak Gradient 163.9 mmHg TR Peak Velocity 216.2 cm/s TR Peak Gradient 18.7 mmHg Right Ventricular Systolic Press 28.9 mmHg FINDINGS Left Ventricle Left ventricular ejection fraction is estimated at 35-40 %. Mildly increased septal wall thickness. Mildly increased posterior wall thickness. Left ventricular cavity size normal. Right Ventricle Mild right ventricular dilatation. Right ventricular systolic pressure within normal limits. Right Atrium Mild right atrial dilatation. No right atrial thrombus or mass seen. Left Atrium Mildly increased left atrial diameter. No left atrial thrombus or mass present. Mitral Valve Mitral valve thickened. Mild mitral annular calcification. [id number] mitral regurgitation. Aortic Valve Trileaflet aortic valve. Aortic valve sclerosis. Tricuspid Valve Structurally normal tricuspid valve. [id number] tricuspid regurgitation. Pulmonic Valve Structurally normal pulmonic valve. Mild pulmonic regurgitation. Pericardium No pericardial or pleural effusion. Aorta Normal size aortic root and proximal ascending aorta. CONCLUSIONS Left ventricular ejection fraction is estimated at 35-40 %. Mild concentric LVH Mild biatrial dilatation. Mild RV dilatation. RVSP 29 mmHg Mild to moderate MR, mild to moderate TR Previewed by: Dr Tavo Phan (Electronically Signed) Final Date: 06 February 2024 17:39
--- NOTE | 2024-02-15 19:56 | EM ---
EVENT MONITOR The patient was monitored between the and the January. CLINICAL INFORMATION: Baseline rhythm is atrial fibrillation. The average rate 101 beats per minute, minimum 58, maximum 158 beats per minute. No pauses were noted. Ventricular ectopic activity burden was 2% with single PVCs. ARSALAN / LEROY: [id number] /
== END 2024-02-06 13:37 | disposition home or self-care (01) ==
LOC: EC 08:51 → 3SCARD 10:07 → INTOOBSV 10:07 → 3SCARD 11:58 → UNDODISIN 02-06 13:37
PROVIDERS: ADMIT Internal Medicine; ATTEND Internal Medicine
DX: I11.0 Hypertensive heart disease with heart failure (principal); I50.33 Acute on chronic diastolic (congestive) heart failure; I65.22 Occlusion and stenosis of left carotid artery; E78.5 Hyperlipidemia, unspecified; I25.10 Atherosclerotic heart disease of native coronary artery without angina pectoris; I48.0 Paroxysmal atrial fibrillation; Z79.01 Long term (current) use of anticoagulants; Z79.82 Long term (current) use of aspirin; Z79.890 Hormone replacement therapy; Z79.899 Other long term (current) drug therapy; Z86.73 Personal history of transient ischemic attack (TIA), and cerebral infarction without residual deficits; Z95.5 Presence of coronary angioplasty implant and graft; Z88.2 Allergy status to sulfonamides; Z88.1 Allergy status to other antibiotic agents
CPT/HCPCS: 96376 ×2; 96374; 96375; 99285; 36415; 93005; 93306; 93270; 83880; 80053 ×2; 83605; 83735; 84484; 85025 ×2; 85610; 85730; 71046; G0378 ×2; J1940 ×2

== ENCOUNTER 2024-02-27 11:40 | Day surgery (SDC) | payer MEDICARE ==
[~2024-02-27 11:40] MED LIST changes: +DEXAMETHASONE SOD PHOSPHATE 4 MG/ML 1 ML VIAL IV ONE; +HYDROmorphone 0.5 MG/0.5 ML SYRINGE IVP PRN; -LACTATED RINGERS 1,000 ML IV SCH; -LIDOCAINE 1% 20 ML VIAL (10MG/ML) FOR IV START INTRADERMA PRN; +ONDANSETRON 4 MG/2 ML VIAL IVP ONE; +SODIUM CHLORIDE 0.9% 500 ML 500 ML IV SCH
[2024-02-27] MEDS: IV FLUID CONTINUATION 1,000 ML IV ONE (12:10)
[2024-02-27] MEDS: LIDOCAINE 1% (10MG/ML) FOR IV START INTRADERMA STA (12:31)
[2024-02-27] MEDS: LACTATED RINGERS 1,000 ML IV SCH (12:32)
[2024-02-27] MEDS ORDERED: LIDOCAINE 2% (PF) 20 MG/ML 5 ML VIAL ONE (12:45)
[2024-02-27] MEDS ORDERED: PROPOFOL 10 MG/ML 20 ML VIAL IV ONE (12:45)
--- NOTE | 2024-02-27 13:11 | P.TEE ---
Description of Procedure(s): Procedure performed: Transesophageal Echocardiogram with color flow doppler, pulsed wave doppler and continuous wave doppler, synchronized cardioversion Moderate conscious sedation: Moderate conscious sedation was supplied by anesthesia, see separate report. Complications: none Indications: Symptomatic Afib PROCEDURE: After the risks, benefits and alternatives of the above mentioned procedure was explained in detail with the patient, informed consent was obtained. Patient was brought to the lab in a fasting state. Patient was given sedation by anesthesia, see separate report. The throat was sprayed with Hurricane to anesthetize the throat. A lubricated Omni probe was then introduced into the esophagus and stomach and multiple views were obtained. 2D echo with color flow doppler, pulsed wave doppler and continuous wave doppler was utilized. There was no thrombus noted and therefore patient underwent synchronized cardioversion x 1 with 200J with resultant sinus rhythm. Patient tolerated the procedure well. Patient was transferred to the post procedure area in stable and satisfactory condition. FINDINGS: 1. The aortic valve not imaged, limited images obtained. 2. The mitral valve appears be normal with mild to moderate regurgitation]. 3. Tricuspid valve not imaged, limited images obtained 4. The interatrial septum not imaged, limited images obtained. 5. Left atrial appendage is free of clot. 6. Left ventricular EF 45%
[2024-02-27 13:23] VITALS: RESP 14; TEMP 97
[2024-02-27] MEDS: POTASSIUM CHLORIDE ER 20 MEQ TAB.ER PO STA (14:08)
[2024-02-27 14:19] VITALS: BP 121/71; PULSE 62
== END 2024-02-27 14:36 | disposition home or self-care (01) ==
LOC: OR 11:40
PROVIDERS: ATTEND Internal Medicine
DX: I25.10 Atherosclerotic heart disease of native coronary artery without angina pectoris (principal); I48.0 Paroxysmal atrial fibrillation; I10 Essential (primary) hypertension; I34.0 Nonrheumatic mitral (valve) insufficiency; E07.9 Disorder of thyroid, unspecified; I50.32 Chronic diastolic (congestive) heart failure; I65.29 Occlusion and stenosis of unspecified carotid artery; L40.9 Psoriasis, unspecified; Z79.82 Long term (current) use of aspirin; Z79.890 Hormone replacement therapy; Z79.899 Other long term (current) drug therapy; Z86.73 Personal history of transient ischemic attack (TIA), and cerebral infarction without residual deficits
CPT/HCPCS: 84132; 92960; 93312; 93320; 93325

== ENCOUNTER → 2024-09-05 | Outpatient (CLI) | payer MEDICARE ==
--- NOTE | 2024-09-05 18:38 | MM ---
Reason for Exam: Screening (asymptomatic). Last screening mammogram was performed 12 month(s) ago. Patient History: Menarche at age 10. First Full-Term at age 19. Left ovary removed at age 47. Right ovary removed at age 47. Hysterectomy at age 47. Postmenopausal. Benign Core Biopsy on the right side. 09/09/1997, Benign Stereotactic Core Biopsy on the right side. Risk Values: Fátima 5 year model risk: 2.6%. NCI Lifetime model risk: 6.0%. Prior Study Comparison: 08/23/2021 Bilateral MG 3D screening mammo w/cad, [facility]. 09/01/2022 Bilateral MG 3D screening mammo w/cad, [facility]. 09/05/2023 Bilateral MG 3D screening mammo w/cad, [facility]. Tissue Density: There are scattered areas of fibroglandular density. Findings: Analyzed By CAD. Chronic nodularity anterior right breast. Microclip posterior right breast from prior biopsy. There is no suspicious group of microcalcifications or new suspicious mass in either breast. Overall Assessment: Benign, BI-RAD 2 Management: Screening Mammogram of both breasts in 1 year. Patient should continue monthly self-breast exams. A clinical breast exam by your physician is recommended on an annual basis. This exam should not preclude additional follow-up of suspicious palpable abnormalities. Note on Fátima scores and lifetime risk: 1. A Fátima score greater than 3% is considered moderate risk. If this is the case, consider specialist referral to assess eligibility for a risk reducing agent. 2. If overall lifetime risk for the development of breast cancer is 20% or higher, the patient may qualify for future screening with alternating mammogram and breast MRI. [facility], , 09/05/2024 6:36 PM. Electronically signed and approved by: Kristin Joya M.D. Radiologist
== END | disposition home or self-care (01) ==
LOC: RADMAMWWP 13:24
PROVIDERS: ATTEND Emergency Medicine
DX: Z12.31 Encounter for screening mammogram for malignant neoplasm of breast (principal); R92.323 Mammographic fibroglandular density, bilateral breasts; N63.10 Unspecified lump in the right breast, unspecified quadrant; Z78.0 Asymptomatic menopausal state
CPT/HCPCS: 77063; 77067